=== PATIENT | female | born 1955 | race African-American/Black ===

== ENCOUNTER 2017-12-14 05:45 | Day surgery (SDC) | payer BC ==
[2017-12-13 08:59] VITALS: BMI 40.4
[2017-12-14] MEDS ORDERED: Betamet Acet/Betamet Na Ph 30 MG/5 ML VIAL ONE (06:44)
[2017-12-14] MEDS ORDERED: Bupivacaine PF 0.5% 30 ML VIAL ONE (06:44)
[2017-12-14] MEDS ORDERED: Bacitracin Zinc Ointment 30 gm TUBE ONE (06:44)
[2017-12-14] MEDS ORDERED: CEFAZOLIN/Water 2 GM/20 ML SYRINGE ONE (06:50)
[2017-12-14] MEDS ORDERED: Midazolam HCl 2 mg/2 ml Vial ONE (07:11)
[2017-12-14] MEDS ORDERED: Fentanyl 100 MCG/2 ML VIAL ONE ×2 (07:11→11:02)
[2017-12-14] MEDS ORDERED: Thrombin 5000 UNITS/5 ML VIAL ONE (09:54)
[2017-12-14] MEDS ORDERED: Ketorolac Tromethamine 30 MG/ML VIAL ONE ×2 (10:59→13:07)
--- NOTE | 2017-12-14 12:48 | OP ---
DATE OF PROCEDURE: 12/14/2017 POSTOPERATIVE DIAGNOSIS: 1. Left cubital tunnel. 2. Left olecranon bursitis. 3. Left carpal tunnel syndrome. 4. Left ulnar nerve compression of the wrist/Guyon's canal. POSTOPERATIVE DIAGNOSES: 1. Left cubital tunnel. 2. Left olecranon bursitis. 3. Left carpal tunnel syndrome. 4. Left ulnar nerve compression of the wrist/Guyon's canal. FINDINGS: 1. A 10 cm x 4 cm lipoma over the ulnar nerve 1 cm proximal to the cubital tunnel primary entrance. 2. Very thick olecranon bursitis. PROCEDURE PERFORMED: 1. Ulnar nerve neuroplasty at the wrist. 2. Ulnar nerve transposition with neuroplasty at the elbow/subcutaneous transposition. 3. Carpal tunnel release. 4. Radical olecranon bursectomy elbow. 5. Excision, large elbow/distal arm lipoma with excisional biopsies 10 x 4 cm. TOURNIQUET TIME: First tourniquet 18 minutes. Second tourniquet 73 minutes. ESTIMATED BLOOD LOSS: Total of 20 mL. COMPLICATIONS: None. DRAINS: None. SPLINT APPLIED: Yes, long arm. SPECIMENS SENT: 1. The olecranon bursa radical resection. 2. Lipoma described above. INDICATIONS: Failed conservative treatment with EMG and clinical proof of compression of the ulnar a nd nerve the elbow and median ulnar of the wrist with marked olecranon bursa tenderness and history o f intermittent edema. DESCRIPTION OF PROCEDURE: After successful general endotracheal anesthesia, the limb was prepped and draped. Sterile tourniquet was applied. The limb was exsanguinated after outlining the incisions a nd then a tourniquet was inflated after exsanguination of limb. The patient then had the limb exsanguinated and tourniquet inflated to 250 mmHg pressure. We gave he r a total of 25 mL 0.5% Marcaine along both incisions. Midline incision was outlined, slightly curve d medially to avoid olecranon bursa at the elbow and a lazy J-shaped incision was made, avoiding the thenar or hypothenar eminence on both sides of the wrist for the wrist procedure. We first approached the wrist, carried the incision through skin and subcutaneous tissue. Immediately found the ulnar n erve and artery neurovascular bundle 2 cm proximal to the Guyon's canal carpal ligament. We then kathy ed them both and found no lipoma, released the transverse ligament before the pisiform, freed a ll subcutaneous fat without a formal lipoma and bands of subcutaneous fascia over the nerve until roldan ulotomy until we saw the nerve bifurcate. We then moved approximately 15 mm radially, found the transverse carpal ligament, and then released t he transcarpal ligament from 2 cm proximal to the volar wrist flexion crease all the way until it end ed. There was a very tight compression of the median nerve within the carpal canal with stippling an d early allograft formation and the ulnar nerve had about a 5 mm area of early stippling just underne ath the Guyon's canals transverse fascia. We released the tourniquet. One small arterial branch had to be clipped using a clip appliance and then we placed Celestone on mariza th nerves 1.5 mL each site, closed the skin only with interrupted 4-0 nylon simple pattern. We reinflated the tourniquet after exsanguination of limb to 250 mmHg pressure and entered the midlin e incision over the elbow. We then placed retractors, outlined the olecranon bursa and gently resect ed its radial half. We then found the ulnar nerve and it was indeed compressed at several sites, fir st it was a lipoma overlying it was 10 cm long x 4 cm in greatest width and about 1/3 of that was ove r the ulnar nerve just proximal to the cubital tunnel. The ulnar nerve was under tremendous tension as it crossed the elbow and went into a very tight marshall cubital tunnel and there was some compressi on also at the two heads of the flexors. All of this was released and then the intermuscular septum was removed for an 8 cm long area. We transposed the nerve anteriorly. Before we performed the ante rior and we were able to find a layer of soft tissue and fat that was very flexible without tension 4 mm deep, 3 cm wide and then we used this to cover the nerves within it before relocating it back int o its marshall area behind the distal humerus. Once this was done, we completed the olecranon bursecto my and removed the complete lipoma knowing that the nerve was protected in its new bed. There was no undue tension on the nerve. We then placed 3 mL Celestone along the nerve, deflated the tourniquet. We obtained hemostasis. We then left a thrombin soaked Gelfoam in the wound for 10 minutes. Close d the wound with deep dermal running 4-0 Monocryl and applied Steri-Strips to the skin. Bulky dressi ng was applied to both sites and a long arm splint in neutral position to the elbow. She left the op erating room without evidence of anesthetic or operative complication.
[2017-12-14] MEDS ORDERED: Ondansetron HCl/PF 4 MG/2 ML Vial ONE (13:07)
[2017-12-14] MEDS ORDERED: Propofol 200 MG/20 ML VIAL ONE (13:07)
[2017-12-14] MEDS ORDERED: Lidocaine 1% PF 5 ML VIAL ONE (13:07)
[2017-12-14] MEDS ORDERED: Dexamethasone 20 MG/5 ML VIAL ONE (13:07)
== END 2017-12-14 13:01 | disposition home or self-care (01) ==
LOC: SDC 05:45
PROVIDERS: ATTEND Orthopaedic Surgery Hand Surgery
DX: D17.22 Benign lipomatous neoplasm of skin and subcutaneous tissue of left arm (principal); G56.02 Carpal tunnel syndrome, left upper limb; G56.22 Lesion of ulnar nerve, left upper limb; M70.22 Olecranon bursitis, left elbow; I10 Essential (primary) hypertension; K21.9 Gastro-esophageal reflux disease without esophagitis; F17.200 Nicotine dependence, unspecified, uncomplicated; Z79.899 Other long term (current) drug therapy; Z88.2 Allergy status to sulfonamides; Z88.8 Allergy status to other drugs, medicaments and biological substances; Z88.1 Allergy status to other antibiotic agents; Z88.0 Allergy status to penicillin; Z91.013 Allergy to seafood; Z90.710 Acquired absence of both cervix and uterus; Z90.722 Acquired absence of ovaries, bilateral; Z90.79 Acquired absence of other genital organ(s); Z98.890 Other specified postprocedural states
CPT/HCPCS: 88304; 96374; J0702; J1885; J2250; J3010; S0020

== ENCOUNTER 2018-01-25 09:55 | Day surgery (SDC) | payer BC ==
[2018-01-24 13:56] VITALS: BMI 252.0
[2018-01-25] MEDS ORDERED: Midazolam HCl 2 mg/2 ml Vial ONE ×2 (10:48→10:50)
--- NOTE | 2018-01-25 13:23 | MRI ---
MRI BRAIN WITHOUT CONTRAST: Technique: Multiplanar, multisequential imaging of the brain obtained. History: Headaches. FINDINGS: Ventricles have normal size and position. No evidence of restricted diffusion. No evidence of white m atter abnormality. No mass or edema identified. No significant volume loss. The intracranial internal carotid arteries, proximal cerebral arteries and basilar arteries show flow voids. The central venous sinuses appear patent. Paranasal sinuses and mastoids appear clear. The optic nerves are somewhat tortuous and there is increased CSF seen along the optic nerve sheaths bilaterally. In addition, there are findings consistent with empty sella with empty CSF in the sella turcica. These findings can be seen with intracranial hypertension and recommend clinical correlation . IMPRESSION: 1. Findings which can be associated with intracranial hypertension are described above. Recommend cli nical correlation. 2. MRI brain otherwise unremarkable. POS: [facility]
--- NOTE | 2018-01-25 13:40 | MRI ---
MRI CERVICAL SPINE WITHOUT CONTRAST: HISTORY: Neck pain. Left hand numbness and tingling. Left upper extremity radiculopathy. TECHNIQUE: Multiplanar, multisequence imaging of the cervical spine obtained. FINDINGS: The cervical vertebrae maintain normal height and alignment. Disk spaces are relatively well preserv ed. There are mild disk bulge and spondylosis at C2-C3 and at C3-C4. The changes at these levels efface the anterior subarachnoid space and but the cord. No cervical canal stenosis or foraminal stenosis a t these levels. At C4-C5, there is a focal disk protrusion centrally and slightly to the right, which does impinge on the cord and indents the anterior cord. This focal protrusion measures 5 mm in AP dimension in the axial plane. There is associated right foraminal stenosis due to disk osteophyte and uncinate hypert rophy. At C5-C6, mild disk bulge and spondylosis mildly efface the anterior subarachnoid space. No impingem ent on the cord. No foraminal stenosis. At C6-C7, minimal disk bulge and spondylosis. Anterior subarachnoid space is preserved. The foramin a are patent. IMPRESSION: Focal disk protrusion at C4-C5, centrally and slightly to the right, with impingement on the cord and associated right foraminal encroachment, as described above. POS: [facility]
== END 2018-01-25 14:50 | disposition home or self-care (01) ==
LOC: SDC/OP 09:55 → EDSTATUS 12:00 → SDC/OP 14:50
PROVIDERS: ATTEND Orthopaedic Surgery Hand Surgery
DX: M50.121 Cervical disc disorder at C4-C5 level with radiculopathy (principal); G56.02 Carpal tunnel syndrome, left upper limb; R51 Headache; G56.22 Lesion of ulnar nerve, left upper limb; M70.20 Olecranon bursitis, unspecified elbow; I10 Essential (primary) hypertension; K21.9 Gastro-esophageal reflux disease without esophagitis; Z79.899 Other long term (current) drug therapy; Z88.2 Allergy status to sulfonamides; Z88.8 Allergy status to other drugs, medicaments and biological substances; Z88.1 Allergy status to other antibiotic agents; Z88.0 Allergy status to penicillin; Z91.013 Allergy to seafood; Z98.890 Other specified postprocedural states
CPT/HCPCS: 70551; 72141; J2250

== ENCOUNTER 2018-08-18 21:31 | Inpatient (IN) | payer BC ==
[~2018-08-18 21:31] MED LIST: ISOVUE-370 76%-LOCM 1 ML ONE
[2018-08-18] MEDS ORDERED: Fentanyl 100 MCG/2 ML VIAL ONE (21:45)
[2018-08-18] MEDS ORDERED: fentaNYL Citrate/PF 2,000 MCG in Sodium Chloride 0.9% 60 ML IV SCH (21:52)
[2018-08-18 21:59] LABS: Bilirubin Negative (Negative); Blood, Urine Trace (Negative); Clarity CLOUDY (Clear); Glucose, Urine (Dipstick) Negative (Negative); Leukocyte Trace (Negative); Nitrite Negative (Negative); Protein, Urine (Dipstick) Trace mg/dL (Neg-Trace); Specific Gravity, Urine 1.008 (1.002-1.036); Urobilinogen 0.2 mg/dL (0.2-1.0); pH, Urine 6.5 (5.0-9.0)
[2018-08-18 22:01] LABS: Bacteria/HPF None Seen HPF (None Seen)
[2018-08-18 22:03] LABS: Hyaline Casts/LPF 0-3 HYALINE CAST LPF (0-3 Hyaline); Pathc Cast-AUWi Flag 5.23 (0-2.49)
[2018-08-18 22:13] LABS: Actual Bicarbonate (HCO3a) 29.2 mEq/L (22-28); Analyzer IN Cardio ER; Base Excess (BEa) 5.2 mEq/L (-2.0 to +3.0); CO2 Tension 40.7 mmHg (35.0-45.0); Calcium, Ionized 1.74 mmol/L (1.12-1.30); Carboxyhemoglobin (COHb) 1.3 gm% (0.0-3.0); Hemoglobin (Hb) 15.8 g/dL (12.0-16.0); O2 Tension (PaO2) 143.7 mmHg (> 80.0); Potassium - ABG Lab 2.45 mmol/L (3.70-5.30); pH, Arterial 7.47 (7.35-7.45)
[2018-08-18 22:18] LABS: ALV-art Gradient 197.575 (0-20); Puncture Site RBR
--- NOTE | 2018-08-18 22:25 | CT ---
NONCONTRAST CT HEAD 08/18/18 HISTORY: Altered mental status. Seizure and respiratory distress. Patient found down and unresponsive. COMPARISON: MRI of the brain on 01/25/18. FINDINGS: There is no evidence of an acute infarction, hemorrhage, mass effect, or midline shift. Ventricular s ystem is normal in size, shape and position. Endotracheal tube and nasogastric tube are partially see n. There is opacification of a few ethmoidal air cells bilaterally with tiny air fluid level in the l eft sphenoid sinus which may be related to the intubation. There are several lytic lesions of varying size seen throughout the calvarium diffusely with larger l ytic areas seen within the right anterior and anterolateral temporal bone. These lytic lesions are wo rrisome for metastatic lesions. No signal abnormalities were seen within the diploic space on prior M RI brain on 01/25/18. IMPRESSION: 1. Lytic metastatic lesions involving the calvarium. 2. Bone scan may be helpful for further evaluation to evaluate for additional metastatic lesions . CT cervical spine was also obtained on this date which also demonstrates multiple lytic lesions thr oughout the vertebral bodies. 3. No acute intracranial abnormalities demonstrated. 4. Endotracheal tube and nasogastric tube in place. POS: [facility]
--- NOTE | 2018-08-18 22:36 | RAD ---
PORTABLE AP CHEST X-RAY 08/18/18 HISTORY: Patient found unresponsive with snoring respirations. Reported seizures 1.5 hours prior to arrival. COMPARISON: 12/10/17. FINDINGS: There is increased density involving the left hemithorax with greater patchy parenchymal change seen in the region of the lingula. The findings could be related to aspiration with mucus plugging, althou gh pleural fluid layering posteriorly is a possibility. The right lung is clear. The tip of the endot wally tube is visualized overlying the region of the T2 vertebral body. Nasogastric tube is noted i n place which courses into the left upper quadrant, the tip of which is not seen. There are lucencies overlying the left shoulder. This could be artifactual, but subcutaneous emphysema cannot be entirel y excluded. No pneumothorax is seen. IMPRESSION: 1. Opacity left hemithorax with greater patchy opacity in the region of the lingula. These findi ngs could be related to aspiration with volume loss in the left hemithorax. Associated pleural effusi on layering posteriorly is a possibility. CT scan thorax may be helpful for further evaluation. 2. Right lung is clear. 3. Partial visualization of endotracheal tube overlying the T2 vertebral body. 4. Gas lucencies overlying the left scapula. This could be related to subcutaneous emphysema in this region or artifactual. Followup evaluation is suggested. POS: [facility]
--- NOTE | 2018-08-18 22:40 | CT ---
CT CERVICAL SPINE NONCONTRAST: 08/18/18 at 9:57 p.m. HISTORY: 63-year-old female status post acute cervical trauma from fall. FINDINGS: There is a large number of osteolytic lesions throughout all levels of the cervical spine and all vis ualized levels of the thoracic spine involving vertebral bodies and posterior elements. There are als o multiple osteolytic lesions involving bilateral upper ribs and left scapula. There is moderately hi gh density left apical pleural fluid collection, 40 Hounsfield units, suggestive of hemorrhagic pleur al fluid. Vertebral body heights are maintained. Alignment is normal. No traumatic acute fracture is identified. There is an endotracheal tube with distal tip in the mid thoracic trachea. There is an NG tube in the esophagus. There is fluid filling and effacing the oropharyngeal and nasopharyngeal airw ays. IMPRESSION: 1. Very extensive osteolytic skeletal lesions representing either skeletal metastasis or multipl e myeloma. 2. Left apical hemothorax. 3. No acute fracture identified. MEMO Nichols POS: [facility]
[2018-08-18] MEDS ORDERED: Propofol 1,000 MG/100 ML VIAL IV ONE (22:41)
[2018-08-18] MEDS ORDERED: Midazolam HCl 5 mg/ml Vial ONE (22:45)
[2018-08-18 22:52] LABS: CKMB 2.3 ng/mL (0-6.6); Troponin I 0.015 ng/mL (< 0.028)
[2018-08-18] MEDS ORDERED: Ondansetron HCl/PF 4 MG/2 ML Vial IVP PRN (22:54)
[2018-08-18] MEDS ORDERED: Sodium Chloride 0.9% 1,000 ML IV SCH (23:00)
[2018-08-18] MEDS ORDERED: Albuterol Sulfate 1.25 MG/3 ML NEB NEB PRN (23:01)
[2018-08-18] MEDS ORDERED: Ventilator Sedation Protocol 1 EACH FS ONE (23:01)
[2018-08-18] MEDS ORDERED: Propofol BOLUS 1,000 MG/100 ML VIAL IV PRN (23:15)
[2018-08-18] MEDS ORDERED: levETIRAcetam 500 MG/100 ML PREMIX BAG ONE (23:15)
[2018-08-18] MEDS ORDERED: cefTRIAXone\\ROCEPHIN 1 GM VIAL ONE (23:15)
[2018-08-18] MEDS ORDERED: Fentanyl BOLUS 250 ML IVPB PRN (23:15)
[2018-08-18 23:16] LABS: Hemoglobin 15.2 g/dL (12.0-16.0); Mean Corpuscular HGB CONC 31.8 g/dL (32.0-36.0); Mean Corpuscular Hemoglobin 30.6 pg (27.0-31.0); Mean Corpuscular Volume 96.4 fL (78.0-98.0); Mean Platelet Volume 10.2 fL (7.4-10.4); Platelet Count 234 thou/uL (130-400); RBC Distribution Width 12.5 % (11.5-14.5); Red Blood Cell (RBC) Count 4.98 mill/uL (4.20-5.40); White Blood Cell (WBC) Count 10.5 thou/uL (4.8-10.8)
[2018-08-18 23:17] LABS: INR-International Normal Ratio 1.1; PTT 26.4 SEC (22.9-36.1); Prothrombin Time 14.3 SEC (12.0-14.7)
[2018-08-18 23:19] LABS: D-Dimer Test 3.8 *mcg/mL (0.27-0.43)
--- NOTE | 2018-08-18 23:21 | RAD ---
RADIOGRAPH CHEST 1 VIEW: Date: 08/18/18 Time: 10:45 p.m. HISTORY: 63-year-old female status post central line placement. COMPARISON: 08/18/18 at 9:31 p.m. FINDINGS: There is a new left subclavian central vascular catheter with distal tip overlying the expected locat ion of the SVC. Endotracheal tube distal tip overlies the trachea and T2 vertebral body, unchanged, l ocated approximately 6.5 cm superior to the la. NG tube travels through the left upper quadrant of the abdomen, distal tip outside the field of view, unchanged. There continues to be severe partial opacification of the left hemithorax, at least part of which is due to pleural fluid (hemothorax as demonstrated on CT of the cervical spine). Lucencies at the left scapula and right clavicle represent osteolytic lesions. This is a supine image, which would be insensitive for pneumothorax detection. N o pulmonary edema or gross consolidation of the right lung . IMPRESSION: 1. Status post left sided subclavian central vascular catheter placement. 2. No other interval change. 3. Severe partial opacification of the left hemithorax probably representing a combination of le ft hemothorax and air space disease. 4. Osteolytic skeletal lesions represent either skeletal metastatic disease or multiple myeloma. 5. No change in positions of endotracheal tube and nasogastric tube. MEMO [] POS: [facility]
[2018-08-18 23:27] LABS: Band 1 % (5-11); Lymphocytes 24 % (21-51); MDiff Complete? YES; Monocytes 6 % (0-10); Neutrophil 68 % (42-75); Reactive Lymphocytes 1 % (0-10)
[2018-08-18 23:30] LABS: ALT (SGPT) 111 U/L (8-55); AST (SGOT) 179 U/L (5-34); Albumin 3.6 g/dL (3.4-4.8); Alkaline Phosphatase 149 U/L (40-150); Anion Gap 17 mmol/L (10-20); BUN (Urea Nitrogen) 17 mg/dL (9.8-20.1); Bilirubin, Total 0.6 mg/dL (0.2-1.2); Calc. Creatinine Clearance 0 mL/min (70-130); Carbon Dioxide 28 mmol/L (23-31); Chloride 102 mmol/L (98-107); Estimated GFR-MDRD 51; Globulin 4.8 g/dL (2.4-3.5); Glucose 107 mg/dL (80-115); Protein, Total 8.4 g/dL (6.0-8.3); Sodium 145 mmol/L (136-145)
[2018-08-18] MEDS ORDERED: levETIRAcetam In NaCl (Iso-Os) 1,500 MG in Premix Bag 1 BAG IVPB SCH (23:30)
[2018-08-18 23:36] LABS: Calcium 15.6 mg/dL (7.8-10.44); Potassium 2.3 mmol/L (3.5-5.1)
[2018-08-19] MEDS ORDERED: Sodium Chloride 0.9% 1,000 ML IV SCH (00:15)
[2018-08-19 00:41] LABS: Magnesium 1.6 mg/dL (1.6-2.6); Phosphorus 3.5 mg/dL (2.3-4.7)
[2018-08-19] MEDS: Lorazepam 2 MG/ML VIAL SLOW IVP PRN ×3 (00:57→16:50)
[2018-08-19] MEDS ORDERED: Zoledronic Acid 4 MG in Sodium Chloride 0.9% 100 ML IVPB SCH (01:30)
[2018-08-19] MEDS: Calcitonin,Salmon,Synthetic 200 UNITS/ML SC SCH (01:44)
[2018-08-19] MEDS: Propofol 1,000 MG/100 ML VIAL IV PRN ×4 (02:49→19:53)
[2018-08-19] MEDS ORDERED: Acetaminophen/Codeine 30-300mg Tablet PO PRN (03:02)
[2018-08-19 03:16] LABS: #Monocytes 0.5 thou/uL (0.11-0.59); #Neutrophils 7.4 thou/uL (1.40-6.50); %Basophils 0.5 % (0.0-1.0); %Eosinophils 0.1 % (0.0-10.0); %Monocytes 5.3 % (0.0-10.0); %Neutrophils 74.2 % (42.0-75.0); Hemoglobin 14.9 g/dL (12.0-16.0); Mean Corpuscular HGB CONC 31.4 g/dL (32.0-36.0); Mean Corpuscular Hemoglobin 30.8 pg (27.0-31.0); Mean Corpuscular Volume 98.1 fL (78.0-98.0); Mean Platelet Volume 10.3 fL (7.4-10.4); Platelet Count 224 thou/uL (130-400); RBC Distribution Width 12.5 % (11.5-14.5); Red Blood Cell (RBC) Count 4.84 mill/uL (4.20-5.40); White Blood Cell (WBC) Count 9.9 thou/uL (4.8-10.8)
[2018-08-19 03:34] LABS: Lactic Acid 2.5 mmol/L (0.5-2.2)
[2018-08-19 04:30] LABS: Anion Gap 16 mmol/L (10-20); BUN (Urea Nitrogen) 17 mg/dL (9.8-20.1); Calc. Creatinine Clearance 90 mL/min (70-130); Carbon Dioxide 27 mmol/L (23-31); Chloride 107 mmol/L (98-107); Estimated GFR-MDRD 55; Glucose 107 mg/dL (80-115); Sodium 148 mmol/L (136-145)
[2018-08-19 04:34] LABS: Calcium 14.6 mg/dL (7.8-10.44); Potassium 2.4 mmol/L (3.5-5.1)
[2018-08-19] MEDS ORDERED: Magnesium 2 GM/NS 0.9% 100 ML 2 GM in Premix Bag 1 BAG IVPB SCH (05:15)
[2018-08-19] MEDS: Sodium Chloride 0.9% 1,000 ML IV SCH ×4 (05:17→19:52)
--- NOTE | 2018-08-19 07:02 | HP ---
PRIMARY CARE PHYSICIAN: Dr. Arnol Chambers CODE STATUS: FULL CODE. TIME OF EVALUATION: 0 CHIEF COMPLAINT: The patient found unresponsive. HISTORY OF PRESENT ILLNESS: This is a 63-year-old female patient with past medical history that was negative, patient came to the hospital after being found unresponsive and having an episode where it seems like a seizure. When EMS came to the scene, they found the patient was in respiratory distress . The patient was intubated, patient was given Versed due to an episode of seizure, no clear trigger s, no alleviating factors, symptoms were severe. REVIEW OF SYSTEMS: Unable to obtain, patient is sedated and intubated. PAST MEDICAL HISTORY: Not reported by family. PAST SURGICAL HISTORY: Left elbow and wrist, right elbow surgery, carpal tunnel surgery, hysterectom y. SOCIAL HISTORY: Every day smoker, 1 pack per day. FAMILY HISTORY: Reviewed and noncontributory to current presentation. ALLERGIES: AMOXICILLIN, CLAVULANIC ACID, CLINDAMYCIN, ____. MEDICATIONS: Lyrica, amlodipine, clonidine. PHYSICAL EXAMINATION: VITAL SIGNS: On presentation, blood pressure 99/68 with heart rate 89, respiratory rate was 22. Tarsha n is unable to obtain, oxygen saturation 100 on the vent. GENERAL APPEARANCE: The patient is intubated, sedated. HEENT: Normal conjunctivae. Oral mucosal membranes. Anicteric. NECK: No JVD. RESPIRATORY: Bilateral air entry. No rales, no wheezing. Symmetric expansion. CARDIOVASCULAR: Normal rate, regular rhythm. No murmurs, no gallop. No edema. ABDOMEN: Soft, normal bowel sounds. MUSCULOSKELETAL: Baseline range of motion and strength. No tenderness. SKIN: The patient has a significant left breast mass that is hard, dark in color, it is extensive fo r about 4-5 inches. Peripheral pulses are present. EXTREMITIES: Seems to be intact. NEUROLOGIC: Unable to fully explore. The patient is sedated and intubated, no evidence of any acute focal weakness. PSYCHIATRIC: Unable to explore. LABORATORY DATA: EKG was reviewed and discussed with the performing physician from the ER. The jozef ent has a normal sinus rhythm at the rate of 87, no ectopics. Cannot rule out inferior infarct, age undetermined. Radiology interpretation; head CT showed multiple lytic lesions in the skull. No intr acranial abnormalities, in the neck showed multiple metastatic lesions. The CT chest was done. The patient has left-sided pleural effusion, possible compression atelectasis. The patient also has a le ft breast mass with significant metastatic disease spreading to the axillary area, multiple lymph nod es in the cervical area ____. Labs were reviewed. White count 10.5, hemoglobin 15.2, MCV 96.4. Coagulation: PT 14.3, INR 1.1, PT T 26.4. D-dimer 3.8. Blood gas was done. The patient had a pH of 7.47 with a pCO2 of 40, pO2 143. Sodium 145, potassium 2.3, repeat 2.4, creatinine 1.2, chloride 102, carbon dioxide 28, anion gap 17 , creatinine 1.58. GFR 51, glucose 107. Lactic acid 3.8, came down to 2.5, calcium on initial prese ntation of 15.6 came down to 14.6 on repeat one in the morning. Phosphorus 3.5, magnesium 1.6, AST 1 79, ALT 111. Troponin was negative. UA was positive for possible infection with white count 7-10. ASSESSMENT AND PLAN: The patient will be placed in the hospital for the following medical problems. The patient placed in ICU. Critical care time 135 minutes expanding on bedside assessment, stabiliz ation of the patient, review and elaboration of records, and coordination of care. 1. Acute episode of seizure, patient has 2 episodes, one at home and one here in the ER, patient has been started on Keppra given findings of possible metastatic disease, and recurrent episodes, the pa tient received intubation, patient on propofol. We will monitor, we will need Neurosurgery follow up . They have been called from here, we will follow recommendations. 2. Positive ____ likely secondary to finding of new diagnosis of cancer, CT angio did not show any m assive pulmonary embolism. 3. Hypokalemia. Potassium 2.45, patient's electrolyte replacement has been started. 4. Hypercalcemia, likely secondary to malignancy, patient has been started on IV fluids, calcitonin, pamidronate, will need Oncology evaluation for assistance with correction of calcium, this could exp skip the patient's initial presentation with acute encephalopathy. 5. Acute encephalopathy, likely secondary to hypercalcemia and possible underlying metastatic diseas e in the brain that has not been seen on the CAT scan. We will treat underlying condition. 6. Possible urinary tract infection. The patient has a white count 7-10, no evidence of sepsis. We will send urine culture. Patient is started on Rocephin that we will continue for now. Blood cultu re, adjust treatment as needed. 7. Deep venous thrombosis prophylaxis. 8. Possible acute kidney injury. Creatinine 1.28, we do not have a previous reference value; howeve r, the patient seems to be dehydrated, likely secondary to diuresis effect from hypercalcemia, we kinga l hydrate, will monitor kidney function. 9. New diagnosis of possible breast cancer given a mass present in the left breast, patient has also multiple extensive metastatic disease. The patient will need Oncology evaluation, and for staging a nd possibility for treatment. Family has stated that they did not know anything about this cancer an d that she had never expressed any concern about cancer. 10. Metastatic disease affecting cervical spine, Neurosurgery has been consulted, we will follow the ir recommendations.
--- NOTE | 2018-08-19 07:12 | PRG ---
DATE OF SERVICE: 08/19/2018 I saw Ms. Corcoran in her hospital room this morning and agree with the notes of Mayelin Hu PA-C. AscencionDusty Corcoran is a 63-year-old woman who came to the emergency department with seizure. CT imaging of the brain did not show obvious lesions in the parenchyma of the brain, but it did show a significant burden of lytic bony lesions in the skull and the cervical spine, CT imaging of the cer vical spine likewise documented this in the spine disease continues into the thoracic spine. A CT an giogram of the chest did not show PE, but it shows a large breast tumor on the patient's left. Ms. Corcoran was seen in the ICU this morning. She is on a significant amount of propofol for sedation a nd is on a ventilator. When the propofol is weaned she starts seizing again. Neurology for some melissa son has not been consulted. 2 mg in total of Ativan has been given and one dose of Keppra overnight. I am unable to examine the patient due to the sedation requirements and I do not want her seizing any more. Brainstem reflexes are intact. Ms. Corcoran undoubtedly has significant metabolic derangement from the metastatic cancer which may have predisposed her to seizure. It would not be unusual to find a brain lesion in the setting of this mu ch metastatic disease. My recommendation for Ms. Corcoran is to have Neurology on board to manage the seizures to bring her elec trolytes more into the normal range and have Oncology review the imaging with some lengthy discussion s with family. I am not in favor of surgical intervention on the spine or brain currently, as I am u nsure what the benefit and the length of the quality of life would be from either of those. When she can tolerate a CT of the chest, abdomen, and pelvis to further stage her metastatic disease might be important, although we already know it is a stage IV with bony metastases and an MRI scan of the bra in could be considered with contrast.
--- NOTE | 2018-08-19 08:17 | CT ---
PRELIMINARY REPORT/[facility]/EMERGENTY AFTER-HOURS PROCEDURE CT Angiography Chest With Intravenous Contrast EXAM DATE/TIME: 08/19/2018 12:00 AM CLINICAL HISTORY: 63 years old, female; Signs and symptoms; Other: Unresponsive; Patient HX: 63f presented to ed by air med for seizure and respiratory distress. 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 Ems reports patient having snoring respirations TECHNIQUE: Axial computed tomographic angiography images of the chest with intravenous contrast using CT angiogr aphy protocol. MIP reconstructed images were created and reviewed. CONTRAST: 70 ml of ISOVUE administered intravenously. COMPARISON: No relevant prior studies available. FINDINGS: Tubes, catheters and devices: Distal tip ETT 5 cm above the la. Distal tip NGT in stomach. Pulmonary arteries: Borderline adequate contrast enhancement of the pulmonary arteries. No evidence o f intraluminal filling defects in the pulmonary trunk or main pulmonary arteries. Limited assessment of the lobar and segmental pulmonary arteries-no evidence of definite filling defect. No evidence of filling defects in the cardiac chambers. Aorta: No evidence of thoracic aortic dissection. Other arteries: Chronic atherosclerotic calcification of the vasculature. Lungs: No evidence endobronchial lesion. Mild left upper lobe and bilateral lower lobe air space opac ity-atelectasis/scarring. Pleural space: Moderate-large left pleural effusion, possibly loculated components. No evidence of pn eumothorax. Heart: Heart appears within normal limits, no pericardial effusion. Bones/joints: Multi-level degenerative changes involve the thoracic spine. Soft tissues: Lobulated up to 7 cm soft tissue density involving the left breast. Lobulated soft tiss ue density in the left axilla. Lymph nodes: Few subcentimeter mediastinal lymph nodes. Other findings: Multifocal lytic lesions throughout the axial skeleton. IMPRESSION: 1. Borderline adequate enhancement for this study-no evidence of pulmonary embolism. 2. No evidence of thoracic aortic dissection. 3. Mild left upper lobe and bilateral lower lobe air space opacity-atelectasis/scarring. 4. Moderate-large left pleural effusion, possibly loculated components. 5. Findings suspicious for mass involving left breast soft tissues and left axillary lymphadenopathy. 6. Findings suggestive osseous metastatic disease. Thank you for allowing us to participate in the care of your patient. Dictated and Authenticated by: Kwadwo Mackey MD 08/19/2018 1:46 AM Central Time ([place] & [place]) FINAL REPORT EMERGENT AFTER HOURS CT ANGIOGRAM OF CHEST PERFORMED WITH INTRAVENOUS CONTRAST ENHANCEMENT WITH 3D RE CONSTRUCTIONS: HISTORY: Syncope, seizure, respiratory distress. The patient was found down and unresponsive. A large left-sided pleural effusion is noted with left lower lobe and lingular atelectasis. There is also atelectatic change in the right lung base with a smaller right effusion. The thoracic aorta is normal in caliber. The pulmonary artery opacification is not adequate. I wendi ot exclude the presence of pulmonary embolus. Left breast mass with skin thickening and left axillary adenopathy is noted. The largest axillary no de is 4.7 cm. Visualized liver parenchyma shows no focal findings. Both adrenal glands are enlarged. There is mas s-like appearance to the left adrenal, which is incompletely visualized on this study. IMPRESSION: 1. This exam is not adequate for evaluation for pulmonary embolus. 2. Large left effusion with a smaller right effusion. Bibasilar atelectatic lung changes particular ly pronounced in the left base. 3. Probable left adrenal mass. 4. Large left breast mass with skin thickening and left axillary adenopathy highly suspicious for br east cancer with metastatic disease. 5. Also incidentally noted is diffuse lytic bony metastatic change. 6. This report is in minor disagreement with the temporary report. They described borderline adequa te enhancement for assessment of pulmonary embolus. I do not think the enhancement is adequate for e valuation. POS: [facility]
[2018-08-19 08:29] LABS: Actual Bicarbonate (HCO3a) 32.6 mEq/L (22-28); Base Excess (BEa) 6.3 mEq/L (-2.0 to +3.0); CO2 Tension 53.3 mmHg (35.0-45.0); Calcium, Ionized 1.68 mmol/L (1.12-1.30); Carboxyhemoglobin (COHb) 1.1 gm% (0.0-3.0); Hemoglobin (Hb) 14.7 g/dL (12.0-16.0); Potassium - ABG Lab 2.41 mmol/L (3.70-5.30); pH, Arterial 7.41 (7.35-7.45)
[2018-08-19 08:32] LABS: ALV-art Gradient 136.575 (0-20); Puncture Site RRA
[2018-08-19] MEDS: Famotidine/PF 20 mg/2ml Vial SLOW IVP SCH (08:32)
[2018-08-19] MEDS: Enoxaparin Sodium 40 MG/0.4 ML SYRINGE SC SCH (08:32)
[2018-08-19] MEDS ORDERED: hydrALAZINE 20 MG/ML VIAL SLOW IVP PRN (08:38)
[2018-08-19] MEDS ORDERED: Eucerin (Mineral Oil/Petrolatum,White) 30 gm Jar TOP PRN (08:38)
[2018-08-19] MEDS ORDERED: Artificial Tears 18 DROP/0.9 ML EA EYE PRN (08:38)
[2018-08-19] MEDS ORDERED: Bisacodyl 10 MG SUPP PR PRN (08:38)
[2018-08-19 08:42] LABS: Potassium 2.4 mmol/L (3.5-5.1)
[2018-08-19] MEDS: Potassium Chloride 20 MEQ in Premix Bag 1 BAG IVPB SCH ×2 (09:12→11:53)
[2018-08-19] MEDS ORDERED: Gadobenate Dimeglumine 529 MG/1 ML (20ML VIAL) ONE (10:41)
--- NOTE | 2018-08-19 12:52 | CON ---
DATE OF CONSULTATION: 08/19/2018. HISTORY OF PRESENT ILLNESS: Ms. Corcoran is a 63-year-old female who was found unresponsive at her home. EMS brought her to our ED department and en route, she began to have some seizure and respiratory distress. The patient was complaining of tingling in her arm earlier today per family notes. The patient is currently in the hospital room, sedated and intubated. She is unresponsive at this time. The patient has a large breast mass on the left side with orange peel skin which appears to have been there for quite some time. REVIEW OF SYSTEMS: Unable to obtain review of systems as the patient is intubated. PAST MEDICAL HISTORY: Past medical history is unable to be obtained as the patient is intubated. PAST SURGICAL HISTORY: The patient has had left elbow and wrist surgery, carpal tunnel, and hysterectomy. SOCIAL HISTORY: The patient's family denies alcohol use or drugs. She does currently smoke cigarettes daily and has smoked for about 20 years, approximately a pack a day. ALLERGIES: AMOXICILLIN, CLAVULANIC ACID, CLINDAMYCIN, SHRIMP and SULFA. MEDICATIONS: Lyrica, amlodipine, clonidine. PHYSICAL EXAMINATION: VITAL SIGNS: Heart rate 69, blood pressure 126/79. She is on a ventilator and her temperature is 97. CONSTITUTIONAL: The patient is unresponsive, sedated and intubated, but she is afebrile, normotensive. HEENT: Head is normocephalic, atraumatic. Moist mucous membranes. Pupils are equal, round, not reactive to light and they are approximately 2-3 mm. RESPIRATORY: The patient is currently breathing. Normal chest rise, symmetrical, on the ventilator. CARDIOVASCULAR: Regular rate and rhythm. Heart sounds are normal. NEUROLOGIC: GCS of 3. She is not responding to stimuli. No eye response. No verbal responses. No motor response. She is intubated and sedated. She has been seizing throughout the night. SKIN: She has a large, hard, left breast mass with implant. IMAGIN. Head CT without contrast shows multiple lytic findings of the skull with no intracranial abnormalities. 2. Cervical spine CT shows multiple metastatic lytic lesion. ASSESSMENT AND PLAN: From a neurosurgical standpoint, Ms. Corcoran needs to have a consult with Neurology to evaluate and treat for her seizures. She needs oncology to address the mass. We will start her on Keppra 500 mg b.i.d., Decadron and Protonix. The patient needs to be worked up for her breast mass and at this time there is no significant neurosurgical intervention needed. MTDD
[2018-08-19] MEDS ORDERED: Vecuronium 10 MG VIAL IV PRN (13:25)
--- NOTE | 2018-08-19 13:56 | PDOC.PN ---
- Subjective Encounter Start Date: 08/19/18 Encounter Start Time: 10:00 -: old records requested/rev pt is intubated, sedated, Patient seen and examined. No overnight events - Objective Resuscitation Status: Resuscitation Status FULL:Full Resuscitation MAR Reviewed: Yes Vital Signs & Weight: Vital Signs (12 hours) Temp Pulse Resp BP Pulse Ox 08/19/18 12:05 58 L 92/59 L 08/19/18 12:00 97.8 F 12 08/19/18 10:00 13 08/19/18 08:00 97.7 F 13 98 08/19/18 07:26 69 126/79 08/19/18 06:00 14 08/19/18 04:00 13 08/19/18 03:00 98.5 F 08/19/18 02:37 79 182/100 H 08/19/18 02:00 16 Weight Weight 256 lb 2.834 oz Most Recent Monitor Data Heart Rate from ECG 58 NIBP 94/54 NIBP BP-Mean 67 Respiration from ECG 12 SpO2 98 I&O: 08/18/18 08/19/18 08/20/18 06:59 06:59 06:59 Intake Total 1918.6 100 Output Total 1360 400 Balance 558.6 -300 Result Diagrams: 08/19/18 02:58 08/19/18 07:57 Radiology Reviewed by me: Yes (CT neck, CT chest, chest xray reviewed) EKG Reviewed by me: Yes (nsr) Phys Exam - Physical Examination Constitutional: NAD on vent HEENT: PERRLA, sclera anicteric cervical collar+ Respiratory: no wheezing, no rales, no rhonchi Cardiovascular: RRR, no significant murmur, no rub Gastrointestinal: soft, no distention, positive bowel sounds Musculoskeletal: no edema, pulses present unable to assess Lymphatic: no nodes Deviation from normal: unable to assess Skin: no rash, normal turgor Dx/Plan (1) Acute kidney injury Code(s): N17.9 - ACUTE KIDNEY FAILURE, UNSPECIFIED Status: Acute (2) Acute metabolic encephalopathy Code(s): G93.41 - METABOLIC ENCEPHALOPATHY Status: Acute (3) Acute respiratory failure with hypoxia Code(s): J96.01 - ACUTE RESPIRATORY FAILURE WITH HYPOXIA Status: Acute (4) Axillary lymphadenopathy Code(s): R59.0 - LOCALIZED ENLARGED LYMPH NODES Status: Acute (5) Hypercalcemia of malignancy Code(s): E83.52 - HYPERCALCEMIA Status: Acute (6) Hypokalemia Code(s): E87.6 - HYPOKALEMIA Status: Acute (7) Left breast mass Code(s): N63.20 - UNSPECIFIED LUMP IN THE LEFT BREAST, UNSPECIFIED QUADRANT Status: Acute (8) Osseous metastasis Code(s): C79.51 - SECONDARY MALIGNANT NEOPLASM OF BONE Status: Acute (9) Pleural effusion, left Code(s): J90 - PLEURAL EFFUSION, NOT ELSEWHERE CLASSIFIED Status: Acute (10) Seizure Code(s): R56.9 - UNSPECIFIED CONVULSIONS Status: Acute (11) Transaminitis Code(s): R74.0 - NONSPEC ELEV OF LEVELS OF TRANSAMNS & LACTIC ACID DEHYDRGNSE Status: Acute (12) UTI (urinary tract infection) Status: Acute - Plan cont current plan of care, plan discussed w/ family * continue forced diuresis for hypercalcemia of mlg * replace potassium * vent as per pulmonary * oncology on case * continue keppra * consult neurology for seizure * discussed with family * prognosis is very poor * medication reviewed as below * symptomatic treatment as below. Review of Systems - Review of Systems Other: unable to review as pt is intubated - Medications/Allergies Allergies/Adverse Reactions: Allergies Allergy/AdvReac Type Severity Reaction Status Date / Time amoxicillin [From Augmentin] Allergy Diarrhea Verified 01/24/18 12:57 clavulanic acid Allergy Diarrhea Verified 01/24/18 12:57 [From Augmentin] clindamycin Allergy diarrhea/di Verified 01/24/18 12:57 zziness shrimp Allergy Anaphylaxis Verified 01/24/18 12:57 Sulfa (Sulfonamide Allergy Rash Verified 01/24/18 12:57 Antibiotics) Medications: Current Medications Acetaminophen (Tylenol) 650 mg PO Q4H PRN PRN Reason: Headache/Fever or Pain Albuterol Sulfate (Albuterol Sulfate) 1.25 mg NEB Q4H PRN PRN Reason: Wheezing Artificial Tears (Tears Naturale) 0 drop EA EYE PRN PRN PRN Reason: Dry Eyes Bisacodyl (Dulcolax) 10 mg AK DAILYPRN PRN PRN Reason: Constipation Calcitonin [place] (Calcimar) 400 units NV 0130 [facility] Stop: 08/22/18 01:31 Last Admin: 08/19/18 01:44 Dose: 400 unit Enoxaparin Sodium (Lovenox) 40 mg SC 0900 [facility] Last Admin: 08/19/18 08:32 Dose: 40 mg Famotidine (Pepcid) 20 mg SLOW IVP DAILY [facility] Last Admin: 08/19/18 08:32 Dose: 20 mg Furosemide (Lasix) 20 mg SLOW IVP 0600,1400 [facility] Hydralazine HCl (Apresoline) 10 mg SLOW IVP Q4H PRN PRN Reason: Systolic BP > 180 Fentanyl Citrate 2,000 mcg/ (Sodium Chloride) 100 mls @ 0 mls/hr IV INF [facility]; Protocol Stop: 09/17/18 21:52 Fentanyl Citrate (Fentanyl Bolus) 250 mls @ 0 mls/hr IVPB PRN PRN PRN Reason: Breakthrough pain/agitation Stop: 09/17/18 23:15 Levetiracetam 500 mg/ Device 100 mls @ 200 mls/hr IVPB BID [facility] Last Admin: 08/19/18 08:33 Dose: 100 mls Sodium Chloride (Normal Saline 0.9%) 1,000 mls @ 200 mls/hr IV .Q5H [facility] Last Admin: 08/19/18 11:53 Dose: 1,000 mls Potassium Chloride 20 meq/ (Device) 100 mls @ 50 mls/hr IVPB 0900,1100 [facility] Stop: 08/19/18 14:00 Last Admin: 08/19/18 11:53 Dose: 100 mls Lorazepam (Ativan) 2 mg SLOW IVP Q1H PRN PRN Reason: Breakthrough agitation Stop: 09/17/18 23:15 Last Admin: 08/19/18 01:51 Dose: 2 mg Mineral Oil/White Petrolatum (Eucerin Cream) 0 gm TOP BIDPRN PRN PRN Reason: Dry Skin Morphine Sulfate (Morphine Sulfate) 2 mg SLOW IVP Q1H PRN PRN Reason: BREAKTHROUGH PAIN/AGITATION Stop: 09/17/18 23:15 Ondansetron HCl (Zofran) 4 mg IVP Q6H PRN PRN Reason: Nausea/Vomiting Propofol (Diprivan) 1,000 mg IV INF PRN; Protocol PRN Reason: TO ACHIEVE GOAL RASS Stop: 09/17/18 23:15 Last Admin: 08/19/18 08:33 Dose: 1,000 mg Propofol (Diprivan Bolus) 20 mg IV Q5MIN PRN PRN Reason: BREAKTHROUGH AGITATION Stop: 09/17/18 23:15 Vecuronium [place] (Norcuron) 10 mg IV Q1H PRN PRN Reason: Agitation
[2018-08-19] MEDS: Furosemide 20 MG/2 ML VIAL SLOW IVP SCH (14:21)
--- NOTE | 2018-08-19 15:35 | PRG ---
DATE OF SERVICE: 08/19/2018 I am following up on recommended imaging on Gabrielle Corcoran. I do not see an MRI of the brain or CT ches t, abdomen, and pelvis that had been done. I will pass on the information to the weekend team. Spin e or cranial surgical intervention must be weighed against the recovery period from those interventio ns and whether they would give her increased quality of life for the time she has remaining. She has diffusely metastatic breast cancer with bony involvement of all of the visible spine and the skull. Whether or not she has an intrinsic brain lesion is unknown, but her CT scan looked relatively unrem arkable with regard to the parenchyma of the brain itself.
--- NOTE | 2018-08-19 18:41 | MRI ---
MRI OF THE BRAIN WITH AND WITHOUT IV CONTRAST: 08/19/18 HISTORY: Seizures, breast mass. FINDINGS: No restricted diffusion is seen. No evidence of infarct, hemorrhage, or intra-axial mass midline shif t or abnormal extra-axial fluid collections are noted. The ventricular size is appropriate and the ba silar cisterns are patent. Numerous enhancing lesions are seen in the calvarium, clivus, and upper/vi sualized portions of the cervical spine. There is mucosal disease in the paranasal sinuses. IMPRESSION: 1. Osseous/calvarial metastatic disease. 2. No evidence of brain metastases. POS: [facility]
--- NOTE | 2018-08-19 19:58 | CON ---
DATE OF CONSULTATION: 08/19/2018 REASON FOR CONSULT: Left breast mass. HISTORY OF PRESENT ILLNESS: Ms. Corcoran is a 63-year-old woman who was found down with witnessed seizur e-like activity. She was found to be in respiratory distress by EMS, so she was intubated and anisa t to the hospital. Imaging of the head, neck and chest revealed multiple lytic bone lesions and a la rge left breast mass and axillary lymphadenopathy as well as a loculated pleural effusion with possib le hemorrhagic component. The patient's cousin is at the bedside and states that the patient has nev er mentioned any concerns about her breast. She does state that the patient has never undergone mamm ography and told her family that if she got cancer, she would just have cancer. She has not mentione d any concerns about her breasts to her boyfriend of many years or to her son. She has no family his tory of breast or ovarian cancer. Her mother and her maternal uncle both of colon cancer in the ir 60s and her father had lung cancer by the family's report. Also by the family's report, the patie nt had been complaining of continued functional decline over recent months with pain in her back and loss of function in her left arm. She had undergone carpal tunnel and tennis elbow surgery without a ny improvement and had been seeing a neurologist for this. PAST MEDICAL HISTORY: All obtained through the chart as the patient is currently intubated and sedat ed. None according to the family, hypertension. PAST SURGICAL HISTORY: Left carpal tunnel, elbow surgery and hysterectomy. 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 FAMILY HISTORY: Colon cancer in first and second degree relatives on the same side of the family and lung cancer in her father. ALLERGIES: She has reported allergies to AUGMENTIN, CLINDAMYCIN, and SHRIMP. OUTPATIENT MEDICATIONS: Medications have not been confirmed, but reportedly she was on amlodipine/va lsartan, clonidine, gabapentin, hydrochlorothiazide, and p.r.n. ibuprofen and acetaminophen. REVIEW OF SYSTEMS: Not obtainable. PHYSICAL EXAMINATION: VITAL SIGNS: The patient has been afebrile since her admission. Heart rate 58, respirations on the vent, she is 98% saturated, blood pressure of 94/54. GENERAL: Reveals an intubated, sedated woman in no acute distress. She is not flushed or toxic or j aundiced in appearance. HEENT: Unremarkable. She does not have any cervical or supraclavicular lymphadenopathy. HEART: Regular in its rate and rhythm without murmurs, rubs or gallops. LUNGS: Clear to auscultation anteriorly, diminished in the left lateral position. ABDOMEN: Soft, nontender, nondistended and she does not have any palpable hepatosplenomegaly. EXTREMITIES: Warm and well perfused. She has obvious lymphedema of the left arm compared to the rig ht breast exam. She has pagetoid changes of over half of her breast with a firm mass filling the ent rodrigo lower breast and extending toward the axilla. She has matted fixed lymph nodes in her axilla. IMAGING DATA: Reviewed and I agree with written report. The patient has a large left breast mass, e xtensive lymphadenopathy in the axilla and multiple lytic lesions of the thoracic and cervical spine as well as the skull, ribs and left clavicle. ASSESSMENT: Metastatic breast cancer. She is not an operative candidate since she has fixed matted lymph nodes and involvement of most of the skin of her left breast. If she were able to consent to t reatment, chemotherapy would be most appropriate, although palliative in nature. However, the patien noah has effectively withheld consents through her past behavior and expressed added to her family. Cur rently, she is unable to express her wishes or participate in conversation. She is going down for an MRI to see if she has metastatic lesions of her brain which were not seen on CT. We will be straigh tforward to biopsy the skin and the mass of the left breast, but again I am concerned about issues of consent as well as what would be in the patient's best interest in terms of quality of life. I am c oncerned that this is apparently a very aggressive cancer. She did not have any metastatic lesions i n the brain or C-spine on an MRI done back in January. Hospice may be the best choice for this patient , but if she and her family decided to proceed with treatment, I am available to perform a biopsy at the bedside.
[2018-08-19] MEDS: Vancomycin HCl 1.75 GM in Sodium Chloride 0.9% 500 ML IVPB SCH (20:41)
--- NOTE | 2018-08-19 22:49 | CON ---
DATE OF CONSULTATION: 08/19/2018 HISTORY OF PRESENT ILLNESS: Gabrielle Corcoran is a 63-year-old female who presented with uncontrolled seizures. She was actually seizing when I evaluated her. These were coming and going and were mainly focal motor facial seizures. She is on propofol drip and receiving Keppra. Apparently, she has not had any complaints according to family. She has one son. PAST MEDICAL HISTORY: Remarkable for carpal tunnel surgeries, right elbow surgery as well as a hysterectomy. SOCIAL HISTORY: She is a smoker, not a daily drinker according to family. She has a negative review of systems. According to the family, she has not shared any concerns about a breast mass, although she did tell one of the family members that she did not get mammograms and if she ever got breast cancer that would be that she would go through any therapy. ALLERGIES: She reports PENICILLIN allergies and CLINDAMYCIN allergies. She is prior to admission on amlodipine, Catapres, and Lyrica. PHYSICAL EXAMINATION: GENERAL APPEARANCE: As mentioned, she was having focal motor facial seizures intermittently. VITAL SIGNS: She is afebrile, respiratory rate 16, heart rate 63, blood pressure 115/67. HEENT: Her pupils were sluggish. NECK: Supple. She has no cervical lymphadenopathy. LUNGS: Clear anteriorly. She had a massive left breast mass with hyperpigmentation. She has matted lymph node under her left arm and lymphedema under her left arm. HEART: Regular rhythm. ABDOMEN: Soft. EXTREMITIES: Without clubbing, cyanosis, or edema. LABORATORY DATA AND IMAGING DATA: White count 9.9, hemoglobin 14.9, platelets 224. Sodium 148, potassium 2.4, chloride 107, bicarbonate 27, BUN 70, creatinine 1.2. Liver enzymes are elevated. Total protein was elevated. Globulin is elevated. AST is 179, ALT is 111. CT pulmonary angiogram was of poor quality, no thromboembolic disease was seen. She has a large left effusion which is the side of her breast lesion. There are findings of metastatic bone disease. IMPRESSION: Widely metastatic breast cancer. Noncontrast head CT showed calvarial mass. I have recommended MRI magnetic resonance imaging of her brain to determine whether or not we were dealing with large metastases or multiple small mets, she obviously can be extubated until her seizures are controlled and at the time of dictation I have met with the family and answered all their questions. Her prognosis is quite poor. She would need chemotherapy and has verbalized the family that she would never go through treatment, but will continue with the workup. I do not feel an abdomen and pelvis CT is going to change immediate management. She has already received IV contrast for CT pulmonary angiogram. I do think a magnetic resonance imaging with and without contrast would be appropriate at this time. We will put a hold on abdomen and pelvis CT. I am sure she is going to have liver metastases. She clearly has metastatic disease in her pleural space and her bones. Critical care time 40 minutes. MTDD
[2018-08-20] MEDS: Sodium Chloride 0.9% 1,000 ML IV SCH ×3 (00:52→08:33)
[2018-08-20] MEDS: Calcitonin,Salmon,Synthetic 200 UNITS/ML SC SCH (00:52)
[2018-08-20] MEDS: Propofol 1,000 MG/100 ML VIAL IV PRN ×3 (00:52→20:36)
[2018-08-20] MEDS: Lorazepam 2 MG/ML VIAL SLOW IVP PRN ×2 (01:38→11:04)
--- NOTE | 2018-08-20 01:51 | CON ---
DATE OF CONSULTATION: 08/19/2018 Reason for Consult: Likely metastatic breast cancer and hypercalcemia. Patient was off the floor getting MRIs this evening when I went to see the patient, so I was unable to see her or her family. After chart review, patient has a large breast mass and diffuse osseous metastatic disease. She is currently intubated and has extremely high calcium levels likely from her breast cancer. Patient is receiving aggressive IV hydration and has received calcitonin and pamidronate. Hypercalcemia of malignancy is best treated with fluids and bisphosphonate therapy, generally Zometa, and calcitonin is occasionally used, although it has tachyphylaxis. The patient has already received pamidronate and calcitonin and continues to receive aggressive hydration. I would recommend continued aggressive hydration until her calcium level improves. Calcitonin can be redosed; however, the benefit decreases after the first dose. Recommend checking PTHrP which may be elevated due to humoral hypercalcemia of malignancy. I will see the patient tomorrow for a full consultation. Patient will require biopsy of her breast mass or metastatic lesion for confirmation and to determine breast cancer markers which would allow us to make treatment recommendations if the patient is eventually able to receive treatment. Prognosis is very guarded at this time. MTDD
[2018-08-20] MEDS: Acetaminophen 325 MG TAB PO PRN (04:40)
[2018-08-20 05:07] LABS: #Lymphocytes 0.9 thou/uL (1.20-3.40); #Monocytes 0.4 thou/uL (0.11-0.59); #Neutrophils 8.6 thou/uL (1.40-6.50); %Basophils 0.1 % (0.0-1.0); %Eosinophils 0.3 % (0.0-10.0); %Lymphocytes 8.7 % (21.0-51.0); %Monocytes 4.4 % (0.0-10.0); %Neutrophils 86.6 % (42.0-75.0); Hemoglobin 13.4 g/dL (12.0-16.0); Mean Corpuscular HGB CONC 31.4 g/dL (32.0-36.0); Mean Corpuscular Hemoglobin 30.6 pg (27.0-31.0); Mean Corpuscular Volume 97.4 fL (78.0-98.0); Mean Platelet Volume 10.7 fL (7.4-10.4); Platelet Count 199 thou/uL (130-400); RBC Distribution Width 12.6 % (11.5-14.5); Red Blood Cell (RBC) Count 4.36 mill/uL (4.20-5.40)
[2018-08-20] MEDS: Furosemide 20 MG/2 ML VIAL SLOW IVP SCH ×2 (05:28→14:38)
[2018-08-20 05:43] LABS: ALT (SGPT) 59 U/L (8-55); AST (SGOT) 165 U/L (5-34); Alkaline Phosphatase 144 U/L (40-150); Anion Gap 10 mmol/L (10-20); BUN (Urea Nitrogen) 20 mg/dL (9.8-20.1); Bilirubin, Total 0.6 mg/dL (0.2-1.2); Calc. Creatinine Clearance 0 mL/min (70-130); Calcium 11.4 mg/dL (7.8-10.44); Carbon Dioxide 29 mmol/L (23-31); Chloride 113 mmol/L (98-107); Estimated GFR-MDRD 51; Globulin 4.1 g/dL (2.4-3.5); Glucose 59 mg/dL (80-115); Potassium 2.4 mmol/L (3.5-5.1); Protein, Total 7.1 g/dL (6.0-8.3); Sodium 150 mmol/L (136-145)
[2018-08-20] MEDS ORDERED: Dextrose 50% Abboject 50 ML SYRINGE ONE (05:55)
[2018-08-20] MEDS ORDERED: Dextrose 50% Abboject 50 ML SYRINGE IVP PRN (07:47)
[2018-08-20] MEDS ORDERED: Dextrose 5% in Water 1,000 ML IV PRN (07:47)
[2018-08-20] MEDS: Enoxaparin Sodium 40 MG/0.4 ML SYRINGE SC SCH (08:32)
[2018-08-20] MEDS: Famotidine/PF 20 mg/2ml Vial SLOW IVP SCH (08:33)
[2018-08-20] MEDS: Vancomycin HCl 1.75 GM in Sodium Chloride 0.9% 500 ML IVPB SCH ×2 (08:33→20:31)
[2018-08-20] MEDS: levETIRAcetam In NaCl (Iso-Os) 1,500 MG in Premix Bag 1 BAG IVPB SCH ×2 (08:42→20:28)
--- NOTE | 2018-08-20 09:01 | CON ---
DATE OF CONSULTATION: 08/19/2018 NEUROLOGY CONSULTATION CONSULTING PHYSICIAN: Hospitalist Service. IMPRESSION: 1. Seizures. 2. Metastatic breast cancer. PLAN: 1. Increase Keppra to 1500 mg IV b.i.d. 2. Attempt to wean propofol. HISTORY OF PRESENT ILLNESS: Ms. Corcoran is a 63-year-old black female who came in after being found unr esponsive at home. She has had a personal known history of a breast mass that she did not have anyon e to investigate. She was brought in with what appeared to be seizure activity. She was intubated a nd loaded with 1500 mg of Keppra. She was started on a propofol drip due to continued seizure activi ty. Her MRI of the brain showed normal brain parenchyma, but there was evidence of bone and left men ingeal enhancement in multiple areas. LABORATORY STUDIES: Showed some hypokalemia and hypercalcemia. No other known history is available. ALLERGIES: SULFA, CLINDAMYCIN, CLAVULANIC ACID, SHRIMP, AMOXICILLIN. SOCIAL HISTORY: Unknown. FAMILY HISTORY: Unknown. REVIEW OF SYSTEMS: Not obtainable. PHYSICAL EXAMINATION: VITAL SIGNS: Blood pressure 115/62, pulse 86, respirations 24, so on ventilatory support, saturation s 97%. HEENT: Pupils are equal. Conjunctivae clear. She is orally intubated. Morbidly obese. She is minimally responsive to painful stimulation. She is on a propofol drip at this point. IMPRESSION: Middle-aged woman with new onset of seizures with leptomeningeal disease, present on MRI . Can increase her Keppra dose based on her weight and hopefully we can wean her off of the propofol drip.
[2018-08-20 09:13] LABS: Actual Bicarbonate (HCO3a) 29.5 mEq/L (22-28); CO2 Tension 47.9 mmHg (35.0-45.0); Calcium, Ionized 1.43 mmol/L (1.12-1.30); Carboxyhemoglobin (COHb) 1.2 gm% (0.0-3.0); Hemoglobin (Hb) 13.7 g/dL (12.0-16.0); O2 Tension (PaO2) 75.2 mmHg (> 80.0); Potassium - ABG Lab 2.24 mmol/L (3.70-5.30); pH, Arterial 7.41 (7.35-7.45)
[2018-08-20 09:16] LABS: ALV-art Gradient 150.125 (0-20); Puncture Site RRA
--- NOTE | 2018-08-20 10:41 | PDOC.PN ---
- Subjective Encounter Start Date: 08/20/18 Encounter Start Time: 09:40 Patient seen and examined. pt is on ventilator, No overnight events last night pt had fever, so culture done and started on antibiotics she has hypoglycemia - Objective Resuscitation Status: Resuscitation Status FULL:Full Resuscitation MAR Reviewed: Yes Vital Signs & Weight: Vital Signs (12 hours) Temp Pulse Resp BP 08/20/18 10:00 30 H 08/20/18 08:55 84 115/62 08/20/18 08:00 99.1 F 08/20/18 06:00 22 H 08/20/18 04:00 101.8 F H 24 H 08/20/18 03:29 102 H 08/20/18 02:00 26 H 08/20/18 00:00 99.3 F 20 08/19/18 23:24 87 140/77 Weight Admit Weight 256 lb Weight 4.229 oz Most Recent Monitor Data Heart Rate from ECG 93 NIBP 144/74 NIBP BP-Mean 97 Respiration from ECG 15 SpO2 98 I&O: 08/19/18 08/20/18 08/21/18 06:59 06:59 06:59 Intake Total 1918.6 7156.8 500 Output Total 1360 3430 1285 Balance 558.6 3726.8 -785 Result Diagrams: 08/20/18 04:15 08/20/18 04:15 Additional Labs: Accuchecks 08/20/18 08/20/18 06:28 06:01 POC Glucose 115 H 58 L* Radiology Reviewed by me: Yes (MRI brain reviewed) EKG Reviewed by me: Yes (nsr) Phys Exam - Physical Examination Constitutional: NAD intubated HEENT: PERRLA, sclera anicteric Neck: no JVD, supple Respiratory: no wheezing, no rales, no rhonchi Cardiovascular: RRR, no significant murmur, no rub Gastrointestinal: soft, no distention, positive bowel sounds Musculoskeletal: no edema, pulses present SCD+ unable to assess due to sedated on vent Lymphatic: no nodes Deviation from normal: unable to assess Skin: no rash, normal turgor Dx/Plan (1) Acute respiratory failure with hypoxia Code(s): J96.01 - ACUTE RESPIRATORY FAILURE WITH HYPOXIA Status: Acute (2) Acute kidney injury Code(s): N17.9 - ACUTE KIDNEY FAILURE, UNSPECIFIED Status: Acute (3) Acute metabolic encephalopathy Code(s): G93.41 - METABOLIC ENCEPHALOPATHY Status: Acute (4) Axillary lymphadenopathy Code(s): R59.0 - LOCALIZED ENLARGED LYMPH NODES Status: Acute (5) Hypercalcemia of malignancy Code(s): E83.52 - HYPERCALCEMIA Status: Acute (6) Hypokalemia Code(s): E87.6 - HYPOKALEMIA Status: Acute (7) Left breast mass Code(s): N63.20 - UNSPECIFIED LUMP IN THE LEFT BREAST, UNSPECIFIED QUADRANT Status: Acute (8) Osseous metastasis Code(s): C79.51 - SECONDARY MALIGNANT NEOPLASM OF BONE Status: Acute (9) Pleural effusion, left Code(s): J90 - PLEURAL EFFUSION, NOT ELSEWHERE CLASSIFIED Status: Acute (10) Seizure Code(s): R56.9 - UNSPECIFIED CONVULSIONS Status: Acute (11) Transaminitis Code(s): R74.0 - NONSPEC ELEV OF LEVELS OF TRANSAMNS & LACTIC ACID DEHYDRGNSE Status: Acute (12) UTI (urinary tract infection) Status: Acute (13) Hypoglycemia Code(s): E16.2 - HYPOGLYCEMIA, UNSPECIFIED Status: Acute - Plan cont current plan of care, continue antibiotics * pulmonary, surgeon and oncology recommendation appreciated * today will change IVF to Dex with NS with 20 meq KCL at 125 ml per hour * calcium improving, replace potassium * give sedation vacation, and weaning will defer to pulmonary * neurology increased dose of keppra * once pt is awake and then she has to make her own decision regarding treatment goal * medication reviewed as below * symptomatic treatment * prognosis is very poor. Review of Systems - Review of Systems Other: unable to review due to intubated status - Medications/Allergies Allergies/Adverse Reactions: Allergies Allergy/AdvReac Type Severity Reaction Status Date / Time amoxicillin [From Augmentin] Allergy Diarrhea Verified 01/24/18 12:57 clavulanic acid Allergy Diarrhea Verified 01/24/18 12:57 [From Augmentin] clindamycin Allergy diarrhea/di Verified 01/24/18 12:57 zziness shrimp Allergy Anaphylaxis Verified 01/24/18 12:57 Sulfa (Sulfonamide Allergy Rash Verified 01/24/18 12:57 Antibiotics) Medications: Current Medications Acetaminophen (Tylenol) 650 mg PO Q4H PRN PRN Reason: Headache/Fever or Pain Last Admin: 08/20/18 04:40 Dose: 650 mg Albuterol Sulfate (Albuterol Sulfate) 1.25 mg NEB Q4H PRN PRN Reason: Wheezing Artificial Tears (Tears Naturale) 0 drop EA EYE PRN PRN PRN Reason: Dry Eyes Bisacodyl (Dulcolax) 10 mg SC DAILYPRN PRN PRN Reason: Constipation Calcitonin [place] (Calcimar) 400 units SC 0130 PENDING SALE TO [facility] Stop: 08/22/18 01:31 Last Admin: 08/20/18 00:52 Dose: 400 unit Dextrose/Water (Dextrose 50%) 25 gm IVP PRN PRN PRN Reason: HYPOGLYCEMIA PROTOCOL Enoxaparin Sodium (Lovenox) 40 mg SC 0900 PENDING SALE TO [facility] Last Admin: 08/20/18 08:32 Dose: 40 mg Famotidine (Pepcid) 20 mg SLOW IVP DAILY PENDING SALE TO [facility] Last Admin: 08/20/18 08:33 Dose: 20 mg Furosemide (Lasix) 20 mg SLOW IVP 0600,1400 PENDING SALE TO [facility] Last Admin: 08/20/18 05:28 Dose: 20 mg Glucagon (Glucagon) 1 mg IM PRN PRN PRN Reason: HYPOGLYCEMIA PROTOCOL Hydralazine HCl (Apresoline) 10 mg SLOW IVP Q4H PRN PRN Reason: Systolic BP > 180 Fentanyl Citrate 2,000 mcg/ (Sodium Chloride) 100 mls @ 0 mls/hr IV INF PENDING SALE TO [facility]; Protocol Stop: 09/17/18 21:52 Last Admin: 08/19/18 18:09 Dose: 100 mls Fentanyl Citrate (Fentanyl Bolus) 250 mls @ 0 mls/hr IVPB PRN PRN PRN Reason: Breakthrough pain/agitation Stop: 09/17/18 23:15 Vancomycin HCl 1.75 gm/ Sodium (Chloride) 500 mls @ 250 mls/hr IVPB Q12HR PENDING SALE TO [facility] Last Admin: 08/20/18 08:33 Dose: 500 mls Dextrose/Water (D5w) 1,000 mls @ 0 mls/hr IV INF PRN PRN Reason: HYPOGLYCEMIA PROTOCOL Levetiracetam 1,500 mg/ Device 100 mls @ 200 mls/hr IVPB BID PENDING SALE TO [facility] Last Admin: 08/20/18 08:42 Dose: 100 mls Potassium Chloride/Dextrose/Sod Cl (D5 0.9% Ns W/ 20 Meq Kcl) 1,000 mls @ 125 mls/hr IV .Q8H ARLENE Lorazepam (Ativan) 2 mg SLOW IVP Q1H PRN PRN Reason: Breakthrough agitation Stop: 09/17/18 23:15 Last Admin: 08/20/18 01:38 Dose: 2 mg Mineral Oil/White Petrolatum (Eucerin Cream) 0 gm TOP BIDPRN PRN PRN Reason: Dry Skin Miscellaneous Medication (Pharmacy To Dose) 1 each IVPB PRN PRN PRN Reason: . Morphine Sulfate (Morphine Sulfate) 2 mg SLOW IVP Q1H PRN PRN Reason: BREAKTHROUGH PAIN/AGITATION Stop: 09/17/18 23:15 Ondansetron HCl (Zofran) 4 mg IVP Q6H PRN PRN Reason: Nausea/Vomiting Propofol (Diprivan) 1,000 mg IV INF PRN; Protocol PRN Reason: TO ACHIEVE GOAL RASS Stop: 09/17/18 23:15 Last Admin: 08/20/18 05:26 Dose: 1,000 mg Propofol (Diprivan Bolus) 20 mg IV Q5MIN PRN PRN Reason: BREAKTHROUGH AGITATION Stop: 09/17/18 23:15 Sodium Chloride (Flush - Normal Saline) 10 ml IVF Q12HR ARLENE Last Admin: 08/20/18 08:33 Dose: 10 ml Sodium Chloride (Flush - Normal Saline) 10 ml IVF PRN PRN PRN Reason: Saline Flush Vecuronium [place] (Norcuron) 10 mg IV Q1H PRN PRN Reason: Agitation Last Admin: 08/19/18 16:50 Dose: 10 mg
[2018-08-20] MEDS: D5 0.9% NS w/ 20 mEq KCl 1,000 ML IV SCH ×2 (11:13→18:25)
--- NOTE | 2018-08-20 13:27 | CON ---
DATE OF CONSULTATION: 08/20/2018 REASON FOR CONSULTATION: Metastatic breast cancer and hypercalcemia. HISTORY OF PRESENT ILLNESS: A 63-year-old female with tobacco abuse, came to the [facility] after being found unresponsive and having an episode like a seizure. This was reported by her son. When EMS came to the scene, they found the patient was in respiratory distress. She was intub ated and given Versed. The patient is currently admitted to the ICU and is intubated and sedated. S he has been on sedation vacation and continues to seize. Upon admission to the hospital on 8, her calcium was found to be 15.6. She received aggressive IV hydration, pamidronate and calcitoni n with improvement of her calcium to 11.4 today. Upon exam, she was found to have a giant left breas t mass with left axillary lymphadenopathy. As per family, she had been complaining of diffuse body p ains including bone pains over the last few months. The patient had a brain MRI that did not show br ain metastases, but did show calvarial metastatic disease. A CT of the chest was done with contrast showing no evidence of pulmonary embolism, however, did show findings suspicious for mass involving t he left breast and left axillary lymphadenopathy and osseous metastatic disease of the chest. The pa yordy is currently unresponsive to touch, although she is currently sedated as well. REVIEW OF SYSTEMS: Ten-point review of systems unable to be obtained due to the patient's sedated st atus. PAST MEDICAL HISTORY: None reported by the family. PAST SURGICAL HISTORY: Left elbow and wrist surgery, right elbow surgery, carpal tunnel surgery, hys terectomy. SOCIAL HISTORY: One pack per day, unknown amount of years. FAMILY HISTORY: Unable to obtain at this time. ALLERGIES: AMOXICILLIN, CLAVULANIC ACID and CLINDAMYCIN. MEDICATIONS: Reviewed. PHYSICAL EXAMINATION: VITAL SIGNS: Stable. GENERAL APPEARANCE: The patient is intubated and sedated. HEENT: Sclerae anicteric. NECK: No JVD. RESPIRATORY: Clear to auscultation bilaterally without wheezing. CARDIOVASCULAR: S1, S2 heard. Regular rate and rhythm. No murmurs, rubs or gallops. ABDOMEN: Obese, soft, nondistended. EXTREMITIES: Bilateral upper extremity edema, left greater than right. SCDs on bilateral lower extr emities. NEUROLOGIC: The patient is sedated and intubated and not responsive to touch or name at this time. LYMPH: Palpable left axillary lymphadenopathy. BREASTS: Large pendulous left breast with extensive skin infiltration and nipple erosion consistent with inflammatory breast cancer. Breast is black and very hard to the touch, almost wooden. LABORATORY DATA: White blood cells 10.0, hemoglobin 13.4, platelets 199,000. Calcium 11.4. Sodium 150, BUN 20, creatinine 1.28, bilirubin 0.6, AST 165, ALT 59, albumin 3.0. IMAGING DATA: CT angio of the chest dated 08/18/2018, no evidence of pulmonary embolism, lobulated u p to 7 cm soft tissue density involving the left breast, lobulated soft tissue density in the left ax illa. Few subcentimeter mediastinal lymph nodes. Multifocal lytic lesions throughout the axial skel eton. MRI brain dated 08/19/2018, no evidence of brain metastases. Osseous calvarial metastatic dis ease is present. ASSESSMENT AND PLAN: A 63-year-old female with metastatic breast cancer presenting to the hospital unresponsive status post seizure, currently intubated and sedated in the ICU. The pa tient was found to have a very high calcium level, which has improved after aggressive IV hydration, pamidronate and calcitonin therapy. The patient has a large left breast mass. There was infiltrate at the skin consistent with inflammatory breast cancer with diffuse osseous metastatic disease and so me mediastinal lymphadenopathy. She has not had a CT of the abdomen and pelvis to evaluate for other areas of metastatic disease. MRI of the brain showed lesions in her skull; however, no brain parenc hymal metastatic disease. The patient was evaluated by Dr. Palomo for biopsy of her left breast mas s. However, the patient has effectively withheld consents through past behaviors and expressed these wishes to her family. Therefore, no biopsy is currently planned. If the patient is able to become alert enough to consent for herself, then Dr. Palomo will consider a biopsy at that time. I agree w ith Dr. Palomo and there is no indication for biopsy at this point unless the patient's medical and mental status improve and she is able to consent for further workup and possible treatment. Judging by the aggressiveness of her breast cancer, it is likely a triple negative breast cancer or possibly HER2 positive. If the patient does become alert and consent to further workup, then Dr. Palomo can perform the biopsy and I will be available to discuss the results with the patient and her family. I will sign off, but please reconsult me if the patient and her family wish. I will be available to deejay stuart with them. Thank you for this consult.
[2018-08-20] MEDS ORDERED: Potassium Chloride 20 MEQ in Premix Bag 1 BAG IVPB ONE (14:00)
--- NOTE | 2018-08-21 00:55 | PRG ---
DATE OF SERVICE: 08/20/2018 SUBJECTIVE: Ms. Corcoran started seizing continuously the minute her propofol was turned off. The MRI did not show structural brain lesions, but I suspect she has meningeal involvement. Lumbar puncture might be helpful in sorting through this. OBJECTIVE: VITAL SIGNS: Her blood pressure is 119/63, heart rate 77, respiratory rates in the teens. LUNGS: Clear. HEART: Regular rhythm. ABDOMEN: Soft. LABORATORY DATA: White count is 10, hemoglobin 13.4, platelets 199,000. Sodium 150, potassium 2.4, chloride 113, bicarbonate 29, BUN 20, creatinine 1.28. PH 7.41, CO2 of 47, pO2 of 75. IMPRESSION: Widely metastatic breast cancer with ongoing seizure activity. It is most likely a reflection meningeal involvement. She does not have any visualized structural changes. We will continue with supportive care. She really needs continuous EEG monitoring to document resolution of her seizure activities, but we do not have that available at this time. We will continue with supportive care and adjustment of seizure medications. Her prognosis is dismal. Critical care time is 35 minutes. RAQUEL
[2018-08-21] MEDS: Calcitonin,Salmon,Synthetic 200 UNITS/ML SC SCH (00:57)
[2018-08-21] MEDS: Propofol 1,000 MG/100 ML VIAL IV PRN ×5 (01:45→22:38)
[2018-08-21] MEDS: D5 0.9% NS w/ 20 mEq KCl 1,000 ML IV SCH (01:53)
[2018-08-21] MEDS: Furosemide 20 MG/2 ML VIAL SLOW IVP SCH (06:03)
[2018-08-21 07:45] LABS: Actual Bicarbonate (HCO3a) 29.1 mEq/L (22-28); CO2 Tension 41.2 mmHg (35.0-45.0); Calcium, Ionized 1.28 mmol/L (1.12-1.30); Carboxyhemoglobin (COHb) 1.3 gm% (0.0-3.0); Hemoglobin (Hb) 13.9 g/dL (12.0-16.0); O2 Tension (PaO2) 73.2 mmHg (> 80.0); Potassium - ABG Lab 2.43 mmol/L (3.70-5.30); pH, Arterial 7.47 (7.35-7.45)
[2018-08-21 08:12] LABS: Puncture Site RRA
[2018-08-21 08:47] LABS: Vancomycin, Trough 20.6 ug/mL
[2018-08-21] MEDS: Enoxaparin Sodium 40 MG/0.4 ML SYRINGE SC SCH (09:29)
[2018-08-21] MEDS: levETIRAcetam In NaCl (Iso-Os) 1,500 MG in Premix Bag 1 BAG IVPB SCH ×2 (09:29→20:03)
[2018-08-21] MEDS: Famotidine/PF 20 mg/2ml Vial SLOW IVP SCH (09:29)
[2018-08-21] MEDS: D5 1/2 NS w/20 mEq KCL 1,000 ML IV SCH ×2 (09:30→17:33)
[2018-08-21 10:27] LABS: Anion Gap 12 mmol/L (10-20); BUN (Urea Nitrogen) 17 mg/dL (9.8-20.1); Calc. Creatinine Clearance 100 mL/min (70-130); Calcium 9.9 mg/dL (7.8-10.44); Carbon Dioxide 27 mmol/L (23-31); Chloride 116 mmol/L (98-107); Estimated GFR-MDRD 60; Glucose 102 mg/dL (80-115); Sodium 152 mmol/L (136-145)
[2018-08-21 10:32] LABS: Hemoglobin 13.2 g/dL (12.0-16.0); Mean Corpuscular HGB CONC 31.3 g/dL (32.0-36.0); Mean Corpuscular Hemoglobin 30.8 pg (27.0-31.0); Mean Corpuscular Volume 98.7 fL (78.0-98.0); Mean Platelet Volume 10.8 fL (7.4-10.4); Platelet Count 188 thou/uL (130-400); RBC Distribution Width 12.9 % (11.5-14.5); Red Blood Cell (RBC) Count 4.28 mill/uL (4.20-5.40); White Blood Cell (WBC) Count 12.2 thou/uL (4.8-10.8)
[2018-08-21 10:33] LABS: Potassium 2.5 mmol/L (3.5-5.1)
--- NOTE | 2018-08-21 10:38 | PDOC.PN ---
- Subjective Encounter Start Date: 08/21/18 Encounter Start Time: 09:40 Patient seen and examined. pt is on ventilator, No overnight events - Objective Resuscitation Status: Resuscitation Status FULL:Full Resuscitation MAR Reviewed: Yes Vital Signs & Weight: Vital Signs (12 hours) Temp Pulse Resp BP 08/21/18 10:00 29 H 08/21/18 08:00 26 H 08/21/18 07:31 81 117/53 L 08/21/18 07:00 98.6 F 08/21/18 06:00 27 H 08/21/18 04:00 99.3 F 25 H 08/21/18 03:01 87 08/21/18 02:00 20 08/21/18 00:00 99.5 F 30 H 08/20/18 23:34 77 128/66 Weight Admit Weight 256 lb Weight 264 lb 1.82 oz Most Recent Monitor Data Heart Rate from ECG 100 NIBP 139/78 NIBP BP-Mean 98 Respiration from ECG 30 SpO2 100 I&O: 08/20/18 08/21/18 08/22/18 06:59 06:59 06:59 Intake Total 7156.8 5206.6 100 Output Total 3430 3995 1790 Balance 3726.8 1211.6 -1690 Result Diagrams: 08/21/18 08:13 08/21/18 08:13 Additional Labs: Accuchecks 08/20/18 08/20/18 08/20/18 18:05 11:51 08:39 POC Glucose 79 78 73 EKG Reviewed by me: Yes (nsr) Phys Exam - Physical Examination Constitutional: NAD on ventilator HEENT: PERRLA, sclera anicteric Neck: no JVD, supple Respiratory: no wheezing, no rales, no rhonchi anteriorly Cardiovascular: RRR, no significant murmur, no rub Gastrointestinal: soft, no distention, positive bowel sounds Musculoskeletal: no edema, pulses present unable to assess Lymphatic: no nodes Deviation from normal: unable to assess Skin: no rash, normal turgor Dx/Plan (1) Acute respiratory failure with hypoxia Code(s): J96.01 - ACUTE RESPIRATORY FAILURE WITH HYPOXIA Status: Acute (2) Acute kidney injury Code(s): N17.9 - ACUTE KIDNEY FAILURE, UNSPECIFIED Status: Acute (3) Acute metabolic encephalopathy Code(s): G93.41 - METABOLIC ENCEPHALOPATHY Status: Acute (4) Axillary lymphadenopathy Code(s): R59.0 - LOCALIZED ENLARGED LYMPH NODES Status: Acute (5) Hypercalcemia of malignancy Code(s): E83.52 - HYPERCALCEMIA Status: Acute (6) Hypokalemia Code(s): E87.6 - HYPOKALEMIA Status: Acute (7) Left breast mass Code(s): N63.20 - UNSPECIFIED LUMP IN THE LEFT BREAST, UNSPECIFIED QUADRANT Status: Acute (8) Osseous metastasis Code(s): C79.51 - SECONDARY MALIGNANT NEOPLASM OF BONE Status: Acute (9) Pleural effusion, left Code(s): J90 - PLEURAL EFFUSION, NOT ELSEWHERE CLASSIFIED Status: Acute (10) Transaminitis Code(s): R74.0 - NONSPEC ELEV OF LEVELS OF TRANSAMNS & LACTIC ACID DEHYDRGNSE Status: Acute (11) UTI (urinary tract infection) Status: Acute (12) Hypoglycemia Code(s): E16.2 - HYPOGLYCEMIA, UNSPECIFIED Status: Acute (13) Status epilepticus Code(s): G40.901 - EPILEPSY, UNSP, NOT INTRACTABLE, WITH STATUS EPILEPTICUS Status: Acute - Plan cont current plan of care * medication reviewed as below * symptomatic treatment * change IVF dex 1/2 ns with kcl at 100 ml per hour * DC Lasix * continue antiepileptic meds as per neurology. * vent as per pulmonary Review of Systems - Review of Systems Other: unable to review due to intubated status - Medications/Allergies Allergies/Adverse Reactions: Allergies Allergy/AdvReac Type Severity Reaction Status Date / Time amoxicillin [From Augmentin] Allergy Diarrhea Verified 01/24/18 12:57 clavulanic acid Allergy Diarrhea Verified 01/24/18 12:57 [From Augmentin] clindamycin Allergy diarrhea/di Verified 01/24/18 12:57 zziness shrimp Allergy Anaphylaxis Verified 01/24/18 12:57 Sulfa (Sulfonamide Allergy Rash Verified 01/24/18 12:57 Antibiotics) Medications: Current Medications Acetaminophen (Tylenol) 650 mg PO Q4H PRN PRN Reason: Headache/Fever or Pain Last Admin: 08/20/18 04:40 Dose: 650 mg Albuterol Sulfate (Albuterol Sulfate) 1.25 mg NEB Q4H PRN PRN Reason: Wheezing Albuterol/Ipratropium (Duoneb) 3 ml NEB [id number] [facility] Artificial Tears (Tears Naturale) 0 drop EA EYE PRN PRN PRN Reason: Dry Eyes Bisacodyl (Dulcolax) 10 mg CO DAILYPRN PRN PRN Reason: Constipation Dextrose/Water (Dextrose 50%) 25 gm IVP PRN PRN PRN Reason: HYPOGLYCEMIA PROTOCOL Enoxaparin Sodium (Lovenox) 40 mg SC 0900 [facility] Last Admin: 08/21/18 09:29 Dose: 40 mg Famotidine (Pepcid) 20 mg SLOW IVP DAILY [facility] Last Admin: 08/21/18 09:29 Dose: 20 mg Glucagon (Glucagon) 1 mg IM PRN PRN PRN Reason: HYPOGLYCEMIA PROTOCOL Hydralazine HCl (Apresoline) 10 mg SLOW IVP Q4H PRN PRN Reason: Systolic BP > 180 Fentanyl Citrate 2,000 mcg/ (Sodium Chloride) 100 mls @ 0 mls/hr IV INF [facility]; Protocol Stop: 09/17/18 21:52 Last Admin: 08/19/18 18:09 Dose: 100 mls Fentanyl Citrate (Fentanyl Bolus) 250 mls @ 0 mls/hr IVPB PRN PRN PRN Reason: Breakthrough pain/agitation Stop: 09/17/18 23:15 Dextrose/Water (D5w) 1,000 mls @ 0 mls/hr IV INF PRN PRN Reason: HYPOGLYCEMIA PROTOCOL Levetiracetam 1,500 mg/ Device 100 mls @ 200 mls/hr IVPB BID [facility] Last Admin: 08/21/18 09:29 Dose: 100 mls Potassium Chloride/Dextrose/Sod Cl (D5 1/2 Ns W/20 Meq Kcl) 1,000 mls @ 100 mls /hr IV .Q10H [facility] Last Admin: 08/21/18 09:30 Dose: 1,000 mls Lorazepam (Ativan) 2 mg SLOW IVP Q1H PRN PRN Reason: Breakthrough agitation Stop: 09/17/18 23:15 Last Admin: 08/20/18 11:04 Dose: 2 mg Mineral Oil/White Petrolatum (Eucerin Cream) 0 gm TOP BIDPRN PRN PRN Reason: Dry Skin Morphine Sulfate (Morphine Sulfate) 2 mg SLOW IVP Q1H PRN PRN Reason: BREAKTHROUGH PAIN/AGITATION Stop: 09/17/18 23:15 Ondansetron HCl (Zofran) 4 mg IVP Q6H PRN PRN Reason: Nausea/Vomiting Propofol (Diprivan) 1,000 mg IV INF PRN; Protocol PRN Reason: TO ACHIEVE GOAL RASS Stop: 09/17/18 23:15 Last Admin: 08/21/18 06:49 Dose: 1,000 mg Propofol (Diprivan Bolus) 20 mg IV Q5MIN PRN PRN Reason: BREAKTHROUGH AGITATION Stop: 09/17/18 23:15 Sodium Chloride (Flush - Normal Saline) 10 ml IVF Q12HR [facility] Last Admin: 08/21/18 09:30 Dose: 10 ml Sodium Chloride (Flush - Normal Saline) 10 ml IVF PRN PRN PRN Reason: Saline Flush
--- NOTE | 2018-08-21 10:47 | CON ---
DATE OF CONSULTATION: 08/21/2018 HISTORY OF PRESENT ILLNESS: Ms. Corcoran remains intubated on the ventilator. She was started on full d ose Keppra yesterday. She has gotten a bit more responsive though, still not following commands. Sh e has some partial spontaneous eye opening with left eye deviation. She has had some random movement in the right hand with increased tone on that side as compared to the left. Plantar responses are u pgoing bilaterally. There is no spontaneous leg movement. No definite seizure activity has been wit nessed by the nursing staff. Vital signs remained stable. I suggest we repeat a CAT scan of the brain to see if there is any new visible structural etiology to the seizures, also check an EEG tomorrow to see if there is ongoing subclinical seizure activity.
[2018-08-21 10:54] LABS: Band 12 % (5-11); Lymphocytes 23 % (21-51); MDiff Complete? YES; Monocytes 4 % (0-10); Neutrophil 61 % (42-75)
[2018-08-21] MEDS ORDERED: Magnesium Sulfate 2 GM in Sodium Chloride 0.9% 100 ML IVPB SCH (12:30)
[2018-08-21] MEDS: Lorazepam 2 MG/ML VIAL SLOW IVP PRN (20:02)
--- NOTE | 2018-08-21 20:39 | PRG ---
DATE OF SERVICE: 08/21/2018 SUBJECTIVE: Ms. Corcoran is stable. Her sedation holiday this morning did not reveal focal motor seizur es. We do not have EEG available on the weekends, so there is no way to assess whether or not she is subclinically seizing. OBJECTIVE: VITAL SIGNS: Blood pressure this afternoon is 128/71, heart rates in the 70s, respiratory rates in t he 20s. LUNGS: Clear. HEART: Regular rhythm. ABDOMEN: Soft. LABORATORY DATA: White count 12.2, hemoglobin 13.2, platelets 188,000. Sodium 152, potassium 2.5, c hloride 116, bicarb 27, BUN 17, creatinine 1.12. IMPRESSION: Respiratory failure associated with status epilepticus associated with metastatic breast cancer. Another CT was ordered for her tomorrow by Neurology. Her hyperchloremia is iatrogenic and Ms. Corcoran would benefit from more free water. It would be reason able to place her on simply D5W. We will continue to follow with the other physicians caring for her. Critical care time is 30 minutes. I met with the family and answered all their questions today.
[2018-08-22] MEDS: Propofol 1,000 MG/100 ML VIAL IV PRN ×5 (02:11→22:53)
[2018-08-22] MEDS: Lorazepam 2 MG/ML VIAL SLOW IVP PRN ×2 (03:26→22:53)
[2018-08-22] MEDS: D5 1/2 NS w/20 mEq KCL 1,000 ML IV SCH ×2 (05:05→14:30)
[2018-08-22 05:13] LABS: #Basophils 0.1 thou/uL (0.0-0.2); #Eosinphils 0.1 thou/uL (0.0-0.7); #Lymphocytes 2.2 thou/uL (1.20-3.40); #Monocytes 0.9 thou/uL (0.11-0.59); #Neutrophils 8.1 thou/uL (1.40-6.50); %Basophils 0.8 % (0.0-1.0); %Eosinophils 0.5 % (0.0-10.0); %Lymphocytes 19.7 % (21.0-51.0); %Monocytes 7.6 % (0.0-10.0); %Neutrophils 71.4 % (42.0-75.0); Hemoglobin 12.4 g/dL (12.0-16.0); Mean Corpuscular HGB CONC 30.5 g/dL (32.0-36.0); Mean Corpuscular Volume 98.4 fL (78.0-98.0); Mean Platelet Volume 10.5 fL (7.4-10.4); Platelet Count 200 thou/uL (130-400); Red Blood Cell (RBC) Count 4.11 mill/uL (4.20-5.40); White Blood Cell (WBC) Count 11.4 thou/uL (4.8-10.8)
[2018-08-22 05:35] LABS: ALT (SGPT) 35 U/L (8-55); AST (SGOT) 134 U/L (5-34); Albumin 2.8 g/dL (3.4-4.8); Alkaline Phosphatase 158 U/L (40-150); Anion Gap 13 mmol/L (10-20); BUN (Urea Nitrogen) 15 mg/dL (9.8-20.1); Bilirubin, Total 0.8 mg/dL (0.2-1.2); Calc. Creatinine Clearance 105 mL/min (70-130); Calcium 9.4 mg/dL (7.8-10.44); Carbon Dioxide 27 mmol/L (23-31); Chloride 116 mmol/L (98-107); Estimated GFR-MDRD 64; Globulin 4.3 g/dL (2.4-3.5); Glucose 95 mg/dL (80-115); Magnesium 1.5 mg/dL (1.6-2.6); Protein, Total 7.1 g/dL (6.0-8.3); Sodium 153 mmol/L (136-145)
[2018-08-22 05:40] LABS: Potassium 2.5 mmol/L (3.5-5.1)
[2018-08-22 07:29] LABS: Actual Bicarbonate (HCO3a) 26.8 mEq/L (22-28); Base Excess (BEa) 3.1 mEq/L (-2.0 to +3.0); CO2 Tension 37.6 mmHg (35.0-45.0); Carboxyhemoglobin (COHb) 0.7 gm% (0.0-3.0); Hemoglobin (Hb) 12.2 g/dL (12.0-16.0); O2 Tension (PaO2) 78.1 mmHg (> 80.0); Potassium - ABG Lab 2.44 mmol/L (3.70-5.30); pH, Arterial 7.47 (7.35-7.45)
[2018-08-22] MEDS ORDERED: Magnesium Sulfate 4 GM in Sodium Chloride 0.9% 250 ML 250 ML IVPB SCH (07:30)
[2018-08-22] MEDS ORDERED: Potassium Phosphate 30 MMOL in Sodium Chloride 0.9% 250 ML 250 ML IVPB SCH (07:30)
[2018-08-22 07:32] LABS: Puncture Site RRA
--- NOTE | 2018-08-22 07:47 | CT ---
CT OF THE BRAIN WITHOUT CONTRAST: Date: 08/22/18 INDICATION: Follow-up CT evaluation for seizure activity. COMPARISON: Prior MRI of the brain dated 08/19/[address] of the brain dated 08/18/18. FINDINGS: Slight motion artifact limits image detail. The patient is intubated. There are small air fluid level s within the sphenoid and ethmoid air cells of the paranasal sinuses. The mastoid air cells are clear . No definite acute infarct, hemorrhage, or hydrocephalus is present. Numerous lytic lesions are agai n seen involving the calvarium consistent with osseous metastatic disease. IMPRESSION: 1. No acute intracranial abnormality. 2. Stable calvarial osseous metastatic disease. 3. Intubation with air fluid levels within the posterior ethmoid air cells and sphenoid sinus. POS: BH
[2018-08-22] MEDS: levETIRAcetam In NaCl (Iso-Os) 1,500 MG in Premix Bag 1 BAG IVPB SCH ×2 (08:09→20:00)
[2018-08-22] MEDS: Enoxaparin Sodium 40 MG/0.4 ML SYRINGE SC SCH (08:13)
[2018-08-22] MEDS: Famotidine/PF 20 mg/2ml Vial SLOW IVP SCH (08:13)
--- NOTE | 2018-08-22 10:35 | PRG ---
DATE OF SERVICE: 08/22/2018 Gabrielle Corcoran remains mechanically ventilated. We are awaiting EEG. PHYSICAL EXAMINATION: VITAL SIGNS: This morning respiratory rates in the 20s. Blood pressure 111/52 , heart rate is 83. LUNGS: Clear. HEART: Regular rhythm. ABDOMEN: Soft. Head CT showed the bony mets. IMPRESSION: Status epilepticus associated with likely meningeal involvement of her metastatic breast cancer. I doubt she has meningitis or encephalitis, but it still remains in the differential. PLAN: Per Neurology. She is not weanable at this time. Critical care time is 35 minutes. MTDD
--- NOTE | 2018-08-22 10:59 | PDOC.PN ---
- Subjective Encounter Start Date: 08/22/18 Encounter Start Time: 10:10 Patient seen and examined. pt is on ventilator. No overnight events - Objective Resuscitation Status: Resuscitation Status FULL:Full Resuscitation MAR Reviewed: Yes Vital Signs & Weight: Vital Signs (12 hours) Temp Pulse Resp BP Pulse Ox 08/22/18 10:14 86 105/46 L 08/22/18 10:13 86 30 H 96 08/22/18 08:00 29 H 08/22/18 07:20 99 08/22/18 07:12 83 93/42 L 08/22/18 07:11 74 25 H 99 08/22/18 07:00 98.3 F 08/22/18 06:00 22 H 08/22/18 04:00 98.2 F 26 H 08/22/18 02:25 85 08/22/18 02:00 26 H 08/22/18 00:00 98.6 F 27 H 08/21/18 23:06 82 109/52 L 08/21/18 23:05 100 Weight Admit Weight 256 lb Weight 258 lb 6.108 oz Most Recent Monitor Data Heart Rate from ECG 83 NIBP 105/46 NIBP BP-Mean 65 Respiration from ECG 23 SpO2 99 I&O: 08/21/18 08/22/18 08/23/18 06:59 06:59 06:59 Intake Total 5206.6 3459 100 Output Total 3995 3575 235 Balance 1211.6 -116 -135 Result Diagrams: 08/22/18 04:25 08/22/18 04:25 EKG Reviewed by me: Yes (nsr) Phys Exam - Physical Examination Constitutional: NAD on vent HEENT: PERRLA, sclera anicteric Neck: no JVD, supple Respiratory: no wheezing, no rales, no rhonchi Cardiovascular: RRR, no significant murmur, no rub Gastrointestinal: soft, no distention, positive bowel sounds Musculoskeletal: no edema, pulses present scd+ unable to assess due to intubated status Lymphatic: no nodes Skin: no rash, normal turgor Dx/Plan (1) Acute respiratory failure with hypoxia Code(s): J96.01 - ACUTE RESPIRATORY FAILURE WITH HYPOXIA Status: Acute (2) Acute kidney injury Code(s): N17.9 - ACUTE KIDNEY FAILURE, UNSPECIFIED Status: Acute (3) Acute metabolic encephalopathy Code(s): G93.41 - METABOLIC ENCEPHALOPATHY Status: Acute (4) Axillary lymphadenopathy Code(s): R59.0 - LOCALIZED ENLARGED LYMPH NODES Status: Acute (5) Hypercalcemia of malignancy Code(s): E83.52 - HYPERCALCEMIA Status: Acute (6) Hypokalemia Code(s): E87.6 - HYPOKALEMIA Status: Acute (7) Left breast mass Code(s): N63.20 - UNSPECIFIED LUMP IN THE LEFT BREAST, UNSPECIFIED QUADRANT Status: Acute (8) Osseous metastasis Code(s): C79.51 - SECONDARY MALIGNANT NEOPLASM OF BONE Status: Acute (9) Pleural effusion, left Code(s): J90 - PLEURAL EFFUSION, NOT ELSEWHERE CLASSIFIED Status: Acute (10) Transaminitis Code(s): R74.0 - NONSPEC ELEV OF LEVELS OF TRANSAMNS & LACTIC ACID DEHYDRGNSE Status: Acute (11) UTI (urinary tract infection) Status: Acute (12) Hypoglycemia Code(s): E16.2 - HYPOGLYCEMIA, UNSPECIFIED Status: Acute (13) Status epilepticus Code(s): G40.901 - EPILEPSY, UNSP, NOT INTRACTABLE, WITH STATUS EPILEPTICUS Status: Acute (14) Hypernatremia Code(s): E87.0 - HYPEROSMOLALITY AND HYPERNATREMIA Status: Acute (15) Hypomagnesemia Code(s): E83.42 - HYPOMAGNESEMIA Status: Acute (16) Hypophosphatemia Code(s): E83.39 - OTHER DISORDERS OF PHOSPHORUS METABOLISM Status: Acute - Plan cont current plan of care * vent as per pulmonary * today CT brain * continue keppra * replace magnesium sulfate, replace potassium phosphate * medication reviewed as below * symptomatic treatment * prognosis is very poor. Review of Systems - Review of Systems Other: unable to review due to intubated status - Medications/Allergies Allergies/Adverse Reactions: Allergies Allergy/AdvReac Type Severity Reaction Status Date / Time amoxicillin [From Augmentin] Allergy Diarrhea Verified 01/24/18 12:57 clavulanic acid Allergy Diarrhea Verified 01/24/18 12:57 [From Augmentin] clindamycin Allergy diarrhea/di Verified 01/24/18 12:57 zziness shrimp Allergy Anaphylaxis Verified 01/24/18 12:57 Sulfa (Sulfonamide Allergy Rash Verified 01/24/18 12:57 Antibiotics) Medications: Current Medications Acetaminophen (Tylenol) 650 mg PO Q4H PRN PRN Reason: Headache/Fever or Pain Last Admin: 08/20/18 04:40 Dose: 650 mg Albuterol Sulfate (Albuterol Sulfate) 1.25 mg NEB Q4H PRN PRN Reason: Wheezing Albuterol/Ipratropium (Duoneb) 3 ml NEB [id number] [facility] Last Admin: 08/22/18 10:13 Dose: 3 ml Artificial Tears (Tears Naturale) 0 drop EA EYE PRN PRN PRN Reason: Dry Eyes Bisacodyl (Dulcolax) 10 mg AL DAILYPRN PRN PRN Reason: Constipation Dextrose/Water (Dextrose 50%) 25 gm IVP PRN PRN PRN Reason: HYPOGLYCEMIA PROTOCOL Enoxaparin Sodium (Lovenox) 40 mg SC 0900 [facility] Last Admin: 08/22/18 08:13 Dose: 40 mg Famotidine (Pepcid) 20 mg SLOW IVP DAILY [facility] Last Admin: 08/22/18 08:13 Dose: 20 mg Glucagon (Glucagon) 1 mg IM PRN PRN PRN Reason: HYPOGLYCEMIA PROTOCOL Hydralazine HCl (Apresoline) 10 mg SLOW IVP Q4H PRN PRN Reason: Systolic BP > 180 Fentanyl Citrate 2,000 mcg/ (Sodium Chloride) 100 mls @ 0 mls/hr IV INF [facility]; Protocol Stop: 09/17/18 21:52 Last Admin: 08/19/18 18:09 Dose: 100 mls Fentanyl Citrate (Fentanyl Bolus) 250 mls @ 0 mls/hr IVPB PRN PRN PRN Reason: Breakthrough pain/agitation Stop: 09/17/18 23:15 Dextrose/Water (D5w) 1,000 mls @ 0 mls/hr IV INF PRN PRN Reason: HYPOGLYCEMIA PROTOCOL Levetiracetam 1,500 mg/ Device 100 mls @ 200 mls/hr IVPB BID [facility] Last Admin: 08/22/18 08:09 Dose: 100 mls Potassium Chloride/Dextrose/Sod Cl (D5 1/2 Ns W/20 Meq Kcl) 1,000 mls @ 100 mls /hr IV .Q10H [facility] Last Admin: 08/22/18 05:05 Dose: 1,000 mls Potassium Phosphate 30 mmol/ (Sodium Chloride) 260 mls @ 42.466 mls/hr IVPB NOW [facility] Stop: 08/22/18 12:00 Last Admin: 08/22/18 08:13 Dose: 260 mls Lorazepam (Ativan) 2 mg SLOW IVP Q1H PRN PRN Reason: Breakthrough agitation Stop: 09/17/18 23:15 Last Admin: 08/22/18 03:26 Dose: 2 mg Mineral Oil/White Petrolatum (Eucerin Cream) 0 gm TOP BIDPRN PRN PRN Reason: Dry Skin Morphine Sulfate (Morphine Sulfate) 2 mg SLOW IVP Q1H PRN PRN Reason: BREAKTHROUGH PAIN/AGITATION Stop: 09/17/18 23:15 Ondansetron HCl (Zofran) 4 mg IVP Q6H PRN PRN Reason: Nausea/Vomiting Propofol (Diprivan) 1,000 mg IV INF PRN; Protocol PRN Reason: TO ACHIEVE GOAL RASS Stop: 09/17/18 23:15 Last Admin: 08/22/18 08:21 Dose: 1,000 mg Propofol (Diprivan Bolus) 20 mg IV Q5MIN PRN PRN Reason: BREAKTHROUGH AGITATION Stop: 09/17/18 23:15 Sodium Chloride (Flush - Normal Saline) 10 ml IVF Q12HR [facility] Last Admin: 08/22/18 08:21 Dose: 10 ml Sodium Chloride (Flush - Normal Saline) 10 ml IVF PRN PRN PRN Reason: Saline Flush
[2018-08-23] MEDS: Propofol 1,000 MG/100 ML VIAL IV PRN ×2 (01:05→11:09)
[2018-08-23] MEDS: Lorazepam 2 MG/ML VIAL SLOW IVP PRN ×4 (01:05→18:32)
[2018-08-23] MEDS: D5 1/2 NS w/20 mEq KCL 1,000 ML IV SCH ×2 (02:26→09:55)
[2018-08-23 04:29] LABS: #Basophils 0.1 thou/uL (0.0-0.2); #Eosinphils 0.1 thou/uL (0.0-0.7); #Lymphocytes 2.7 thou/uL (1.20-3.40); #Neutrophils 7.3 thou/uL (1.40-6.50); %Basophils 0.5 % (0.0-1.0); %Eosinophils 1.1 % (0.0-10.0); %Lymphocytes 24.1 % (21.0-51.0); %Monocytes 8.9 % (0.0-10.0); %Neutrophils 65.4 % (42.0-75.0); Hemoglobin 11.8 g/dL (12.0-16.0); Mean Corpuscular HGB CONC 31.5 g/dL (32.0-36.0); Mean Corpuscular Volume 98.5 fL (78.0-98.0); Mean Platelet Volume 10.6 fL (7.4-10.4); Platelet Count 203 thou/uL (130-400); RBC Distribution Width 13.1 % (11.5-14.5); Red Blood Cell (RBC) Count 3.82 mill/uL (4.20-5.40); White Blood Cell (WBC) Count 11.1 thou/uL (4.8-10.8)
[2018-08-23 05:08] LABS: ALT (SGPT) 25 U/L (8-55); AST (SGOT) 117 U/L (5-34); Albumin 2.6 g/dL (3.4-4.8); Alkaline Phosphatase 147 U/L (40-150); Anion Gap 12 mmol/L (10-20); BUN (Urea Nitrogen) 12 mg/dL (9.8-20.1); Calc. Creatinine Clearance 125 mL/min (70-130); Calcium 8.7 mg/dL (7.8-10.44); Carbon Dioxide 27 mmol/L (23-31); Chloride 118 mmol/L (98-107); Estimated GFR-MDRD 78; Globulin 4.1 g/dL (2.4-3.5); Glucose 95 mg/dL (80-115); Protein, Total 6.7 g/dL (6.0-8.3); Sodium 154 mmol/L (136-145)
[2018-08-23 05:11] LABS: Potassium 2.6 mmol/L (3.5-5.1)
[2018-08-23] MEDS ORDERED: Magnesium Oxide 400 MG TAB PO PRN ×2 (05:33)
[2018-08-23] MEDS ORDERED: Potassium Chloride 20 MEQ TAB PO PRN (05:33)
[2018-08-23] MEDS ORDERED: Potassium Phosphate 15 MMOL in Sodium Chloride 0.9% 250 ML 250 ML IV PRN (05:33)
[2018-08-23] MEDS ORDERED: Magnesium 2 GM/NS 0.9% 100 ML 2 GM in Premix Bag 1 BAG IVPB PRN (05:33)
[2018-08-23] MEDS ORDERED: CCU ELECTROLYTE REPLACEMENT PROTOCOL FS PRN (05:33)
[2018-08-23] MEDS ORDERED: Potassium Phosphate 12 MMOL in Sodium Chloride 0.9% 250 ML 250 ML IV PRN (05:33)
[2018-08-23] MEDS ORDERED: Potassium Phosphate 9 MMOL in Sodium Chloride 0.9% 100 ML IVPB PRN (05:33)
[2018-08-23] MEDS: Potassium Chloride 40 MEQ in Premix Bag 1 BAG IVPB PRN ×3 (06:21→19:34)
[2018-08-23 07:31] LABS: Actual Bicarbonate (HCO3a) 24.1 mEq/L (22-28); Base Excess (BEa) 0.6 mEq/L (-2.0 to +3.0); CO2 Tension 34.8 mmHg (35.0-45.0); Calcium, Ionized 1.13 mmol/L (1.12-1.30); Carboxyhemoglobin (COHb) 0.8 gm% (0.0-3.0); Hemoglobin (Hb) 12.8 g/dL (12.0-16.0); O2 Tension (PaO2) 65.6 mmHg (> 80.0); Potassium - ABG Lab 2.92 mmol/L (3.70-5.30); pH, Arterial 7.46 (7.35-7.45)
[2018-08-23 07:36] LABS: Puncture Site L.R.
--- NOTE | 2018-08-23 09:23 | EEG ---
Referring Physician: DR. OVIEDO EEG # [id number] TEST TYPE: ROUTINE PORTABLE INPATIENT REPORT: AN EEG USING THE INTERNATIONAL TEN-TWENTY SYSTEM OF ELECTRODE PLACEMENT WAS PERFORMED. The background activity is a mixed frequency slowing. The patient occasionally gets to 8 hertz alpha frequency, but the majority of the study there is diffuse symmetric slowing. No epileptiform features were present. Photic stimulation was unremarkable. IMPRESSION: THIS IS AN ABNORMAL STUDY FOR THE FINDINGS OF MIXED FREQUENCY SLOWING WITHOUT EVIDENCE OF EPILEPTIFORM ACTIVITY ASSOCIATED WITH HER MOVEMENTS. Executive Administrative Asst: DIMITRY Awning Craftsperson: EEG.KATHERINE GARCÍA
[2018-08-23] MEDS: Famotidine/PF 20 mg/2ml Vial SLOW IVP SCH (09:54)
[2018-08-23] MEDS: Enoxaparin Sodium 40 MG/0.4 ML SYRINGE SC SCH (09:54)
[2018-08-23] MEDS: levETIRAcetam In NaCl (Iso-Os) 1,500 MG in Premix Bag 1 BAG IVPB SCH ×2 (09:54→20:21)
[2018-08-23 12:06] LABS: Potassium 2.8 mmol/L (3.5-5.1)
--- NOTE | 2018-08-23 16:33 | PRG ---
DATE OF SERVICE: 08/23/2018 SUBJECTIVE: Gabrielle Corcoran had an EEG which had showed slowing. Her hemodynamics have been stable. Sh radha did not have any seizure activity on the EEG. She is not clinically showing any signs of seizures regularly now. OBJECTIVE: VITAL SIGNS: She is afebrile, heart rate 80, blood pressure 123/84. LUNGS: Clear. HEART: Regular rhythm. ABDOMEN: Soft. EXTREMITIES: Without clubbing, cyanosis, or edema. Intake and output is positive 1487. LABORATORY: White count 11.1, hemoglobin 11.8, platelets 203,000. Sodium 154, potassium 2.6, chlori de 118, bicarb 27, BUN 12, creatinine 0.89. A pH 7.6, CO2 34, PO2 of 65. IMPRESSION: Respiratory failure secondary to seizures associated metastatic breast cancer. PLAN: Continue slow weaning as tolerated. He had an improvement of her mental status will matt larson. I would not recommend proceeding to tracheostomy if she fails to awaken, it is unclear whether or not she will awaken at this point. She certainly could have been significantly hypoxemic at home. Critical care time 30 minutes.
[2018-08-23] MEDS: D5 1/4 NS 1,000 ML IV SCH (16:41)
--- NOTE | 2018-08-23 18:46 | PDOC.PN ---
- Subjective Encounter Start Date: 08/23/18 Encounter Start Time: 18:35 Subjective: f/u for acute resp failure, encephalopathy and likely anoxic brain injury -: on current [facility] ventilation. No response or seizures per nursing. - Objective Resuscitation Status: Resuscitation Status FULL:Full Resuscitation MAR Reviewed: Yes Vital Signs & Weight: Vital Signs (12 hours) Temp Pulse Resp BP Pulse Ox 08/23/18 18:00 30 H 08/23/18 16:00 22 H 08/23/18 15:00 99.0 F 08/23/18 14:49 80 123/84 08/23/18 14:47 79 31 H 99 08/23/18 14:00 29 H 08/23/18 12:00 23 H 08/23/18 11:00 98.7 F 08/23/18 10:42 65 127/62 08/23/18 10:41 66 26 H 98 08/23/18 10:00 30 H 08/23/18 08:00 26 H 98 08/23/18 07:21 79 99/57 L 08/23/18 07:06 73 26 H 99 08/23/18 07:00 98.3 F Weight Admit Weight 256 lb Weight 263 lb 7.238 oz Most Recent Monitor Data Heart Rate from ECG 63 NIBP 100/51 NIBP BP-Mean 67 Respiration from ECG 25 SpO2 100 I&O: 08/22/18 08/23/18 08/24/18 06:59 06:59 06:59 Intake Total 3459 3412 1503 Output Total 3575 1925 995 Balance -116 1487 508 Result Diagrams: 08/23/18 04:00 08/23/18 11:37 Additional Labs: Microbiology 08/18/18 23:03 Central Line - Left Subclavian Vein Blood Culture - Final Bacillus species,NOT anthracis Coagulase Neg Staphylococcus 08/18/18 21:41 Urine vaughn catheter Urine Culture - Final NO GROWTH AT 36 HOURS 08/18/18 23:22 Central Line - Left Subclavian Vein Blood Culture - Preliminary NO GROWTH AT 48 HOURS Laboratory Tests 08/21/18 08/21/18 08/22/18 08:13 08:13 04:25 WBC 12.2 H Sodium 152 H 153 H Potassium 2.5 L* 2.5 L* 08/22/18 08/23/18 04:25 04:00 WBC 11.4 H Sodium Potassium 2.6 L* Radiology Reviewed by me: Yes (CT brain - osseous metastatic process, no acute intracranial process) EKG Reviewed by me: Yes (Tele - SR) Phys Exam - Physical Examination sedate, no response to stimuli HEENT: sclera anicteric, oral pharynx no lesions Neck: no JVD, supple, full ROM Respiratory: no wheezing, no rales, no rhonchi, clear to auscultation bilateral S1, S2 Cardiovascular: RRR, no significant murmur, no rub, gallop Gastrointestinal: soft, non-tender, no distention, positive bowel sounds Musculoskeletal: pulses present, edema present no response to stimuli Deviation from normal: L breast with hardened mass, hyperpigmentation consistent with malignancy Skin: normal turgor, cap refill <2 seconds Dx/Plan (1) Anoxic brain injury Status: Acute Comment: Likely after prolonged seizure activity, Palliative care consult, consider cerebral perfusion study (2) Acute metabolic encephalopathy Code(s): G93.41 - METABOLIC ENCEPHALOPATHY Status: Acute Comment: Persistent secondary to #1, supportive mgmt (3) Acute respiratory failure with hypoxia Code(s): J96.01 - ACUTE RESPIRATORY FAILURE WITH HYPOXIA Status: Acute Comment: Continue NIMV, not weanable (4) Hypokalemia Code(s): E87.6 - HYPOKALEMIA Status: Acute Comment: KCL replacment per CCU protocol (5) Left breast mass Code(s): N63.20 - UNSPECIFIED LUMP IN THE LEFT BREAST, UNSPECIFIED QUADRANT Status: Acute Comment: Likely malignant breast cancer, pt does not want any treatment per family report (6) Osseous metastasis Code(s): C79.51 - SECONDARY MALIGNANT NEOPLASM OF BONE Status: Acute (7) Status epilepticus Code(s): G40.901 - EPILEPSY, UNSP, NOT INTRACTABLE, WITH STATUS EPILEPTICUS Status: Acute Comment: Keppra 1500mg IV BID - Plan social services counselor, respiratory therapy, DVT proph w/SCDs Continue critical support -: Palliative care consult in am -: Electrolyte replacement protocol -: Mag Sulfate 2gm IV x 1 today -: Consider cerebral perfusion study * AM lab: CMP, CBC, Mg++
[2018-08-23] MEDS ORDERED: Magnesium 2 GM/50 ML 2 GM in Premix Bag 1 BAG IVPB SCH (19:00)
[2018-08-23 19:15] LABS: Potassium 3.1 mmol/L (3.5-5.1)
--- NOTE | 2018-08-24 03:24 | PRG ---
NEUROLOGY FOLLOWUP NOTE Ms. Corcoran remains on IV sedation and ventilatory support. No witnessed seizure-like movements have be en seen in the last 24 hours. Her EEG revealed some diffuse slowing in the theta range. Her repeat CT scan of the brain did not show any interval change compared to her prior study. Vital signs have been fairly stable, but a bit hypotensive. Her sedation has been changed. relatively mild slowing that she would appear so sedated given the lack of ongoing seizure acti vity and other structural anomalies seen on CT, I would remain optimistic as far as her prognosis fro m a neurologic recovery. Continue her current Keppra dosing and follow in her care.
[2018-08-24] MEDS: D5 1/4 NS 1,000 ML IV SCH ×2 (04:58→17:40)
[2018-08-24 05:27] LABS: ALT (SGPT) 22 U/L (8-55); AST (SGOT) 100 U/L (5-34); Albumin 2.6 g/dL (3.4-4.8); Alkaline Phosphatase 143 U/L (40-150); Anion Gap 10 mmol/L (10-20); BUN (Urea Nitrogen) 11 mg/dL (9.8-20.1); Bilirubin, Total 1.4 mg/dL (0.2-1.2); Calc. Creatinine Clearance 138 mL/min (70-130); Calcium 8.4 mg/dL (7.8-10.44); Carbon Dioxide 26 mmol/L (23-31); Chloride 118 mmol/L (98-107); Estimated GFR-MDRD 87; Globulin 4.1 g/dL (2.4-3.5); Glucose 110 mg/dL (80-115); Magnesium 1.9 mg/dL (1.6-2.6); Potassium 3.2 mmol/L (3.5-5.1); Protein, Total 6.7 g/dL (6.0-8.3); Sodium 151 mmol/L (136-145)
[2018-08-24 05:33] LABS: #Eosinphils 0.1 thou/uL (0.0-0.7); #Lymphocytes 2.2 thou/uL (1.20-3.40); #Monocytes 0.9 thou/uL (0.11-0.59); %Basophils 0.5 % (0.0-1.0); %Eosinophils 1.3 % (0.0-10.0); %Lymphocytes 23.3 % (21.0-51.0); %Monocytes 9.9 % (0.0-10.0); %Neutrophils 65.1 % (42.0-75.0); Hemoglobin 11.9 g/dL (12.0-16.0); Mean Corpuscular HGB CONC 31.5 g/dL (32.0-36.0); Mean Corpuscular Hemoglobin 30.9 pg (27.0-31.0); Mean Platelet Volume 10.4 fL (7.4-10.4); Platelet Count 220 thou/uL (130-400); Red Blood Cell (RBC) Count 3.85 mill/uL (4.20-5.40); White Blood Cell (WBC) Count 9.2 thou/uL (4.8-10.8)
[2018-08-24] MEDS: Potassium Chloride 40 MEQ in Premix Bag 1 BAG IVPB PRN (05:45)
[2018-08-24 08:03] LABS: Actual Bicarbonate (HCO3a) 24.9 mEq/L (22-28); Base Excess (BEa) 1.7 mEq/L (-2.0 to +3.0); CO2 Tension 34.4 mmHg (35.0-45.0); Carboxyhemoglobin (COHb) 0.7 gm% (0.0-3.0); Hemoglobin (Hb) 12.9 g/dL (12.0-16.0); O2 Tension (PaO2) 77.8 mmHg (> 80.0); Potassium - ABG Lab 3.58 mmol/L (3.70-5.30); pH, Arterial 7.48 (7.35-7.45)
[2018-08-24 08:05] LABS: Puncture Site L.R.
[2018-08-24] MEDS: levETIRAcetam In NaCl (Iso-Os) 1,500 MG in Premix Bag 1 BAG IVPB SCH ×2 (08:32→19:59)
[2018-08-24] MEDS: Famotidine/PF 20 mg/2ml Vial SLOW IVP SCH (08:43)
[2018-08-24] MEDS: Enoxaparin Sodium 40 MG/0.4 ML SYRINGE SC SCH (08:43)
[2018-08-24] MEDS: Lorazepam 2 MG/ML VIAL SLOW IVP PRN (09:17)
--- NOTE | 2018-08-24 18:49 | PRG ---
DATE OF SERVICE: 08/24/2018 SUBJECTIVE: Ms. Corcoran really is not waking up. She has lower extremity twitching motions. She was doing this when she had her EEG and there were no epileptiform discharges to consider this seizure activity. SUBJECTIVE: VITAL SIGNS: Heart rates in the 50s, blood pressure 111/62, respiratory rates in the 20s. LUNGS: Unchanged. HEART: Unchanged. ABDOMEN: Unchanged. Intake and output is positive 896. LABORATORY DATA: White count 9.2, hemoglobin 11.9, platelets 220. Sodium 151, potassium 3.2, chlori de 118, bicarb 26, BUN 11, creatinine 0.8. IMPRESSION: 1. Respiratory failure associated with status epilepticus, felt to be associated with meningeal invo lvement of her malignancy. 2. Mild hyperchloremia. 3. Possible anoxic injury versus persistent encephalopathy secondary to status epilepticus. It was quite prolonged. PLAN: Continue current care. I would like to meet with family next time they are here and discuss w ithdrawal of care. She clearly did not want to address the breast issue when she was cognizant and h as told family that she did not want treatment, so there is really no reason that if she does not wak e up to continue with ongoing aggressive care. We at a minimum need to set time boundaries regarding how long we are going to wait to see if she wakes up. It is unfortunate though that she has a very advanced malignant process and we probably will not give her much quality of life even if she were to wake up tomorrow and be safely extubated. Critical care time was 30 minutes.
--- NOTE | 2018-08-24 21:23 | PDOC.PN ---
- Subjective Encounter Start Date: 08/24/18 Encounter Start Time: 17:00 Subjective: f/u for persistent encephalopathy, resp failure s/p prolonged seizure -: with likely anoxic brain injury. Occasional foot twitches per nursing. - Objective Resuscitation Status: Resuscitation Status FULL:Full Resuscitation MAR Reviewed: Yes Vital Signs & Weight: Vital Signs (12 hours) Temp Pulse Resp BP Pulse Ox 08/24/18 20:00 24 H 08/24/18 19:03 57 L 26 H 99 08/24/18 19:00 97.7 F 08/24/18 17:43 27 H 08/24/18 16:00 22 H 08/24/18 15:24 56 L 111/62 08/24/18 15:23 56 L 26 H 100 08/24/18 14:51 98.4 F 08/24/18 14:00 26 H 08/24/18 12:00 22 H 08/24/18 11:00 98.8 F 08/24/18 10:43 60 114/58 L 08/24/18 10:41 60 29 H 99 08/24/18 10:00 24 H Weight Admit Weight 256 lb Weight 263 lb 14.293 oz Most Recent Monitor Data Heart Rate from ECG 59 NIBP 120/65 NIBP BP-Mean 83 Respiration from ECG 24 SpO2 100 I&O: 08/23/18 08/24/18 08/25/18 06:59 06:59 06:59 Intake Total 3412 2726 1230 Output Total 1925 1830 1180 Balance 1487 896 50 Result Diagrams: 08/24/18 05:00 08/24/18 05:00 Additional Labs: Microbiology 08/18/18 23:03 Central Line - Left Subclavian Vein Blood Culture - Final Bacillus species,NOT anthracis Coagulase Neg Staphylococcus 08/18/18 21:41 Urine vaughn catheter Urine Culture - Final NO GROWTH AT 36 HOURS 08/18/18 23:22 Central Line - Left Subclavian Vein Blood Culture - Preliminary NO GROWTH AT 48 HOURS Laboratory Tests 08/21/18 08/21/18 08/22/18 08:13 08:13 04:25 WBC 12.2 H Sodium 152 H 153 H Potassium 2.5 L* 2.5 L* 08/22/18 08/23/18 04:25 04:00 WBC 11.4 H Sodium Potassium 2.6 L* EKG Reviewed by me: Yes (Tele - SR) Phys Exam - Physical Examination sedate, minimal corneal reflex, mech vent, ETT in place HEENT: sclera anicteric, oral pharynx no lesions Neck: no nodes, no JVD, supple, full ROM Respiratory: no wheezing, no rales, no rhonchi, clear to auscultation bilateral S1, S2 Cardiovascular: RRR, no significant murmur, no rub, gallop Gastrointestinal: no distention, positive bowel sounds Musculoskeletal: pulses present, edema present no response to stimuli Skin: normal turgor, cap refill <2 seconds Deviation from normal: Vaughn with tea-colored urine Dx/Plan (1) Anoxic brain injury Status: Acute Comment: Likely after prolonged seizure activity, Palliative care consult, consider cerebral perfusion study, poor prognosis (2) Acute metabolic encephalopathy Code(s): G93.41 - METABOLIC ENCEPHALOPATHY Status: Acute Comment: Persistent secondary to #1, supportive mgmt (3) Acute respiratory failure with hypoxia Code(s): J96.01 - ACUTE RESPIRATORY FAILURE WITH HYPOXIA Status: Acute Comment: Continue NIMV, not weanable (4) Hypokalemia Code(s): E87.6 - HYPOKALEMIA Status: Acute Comment: KCL replacment per CCU protocol (5) Left breast mass Code(s): N63.20 - UNSPECIFIED LUMP IN THE LEFT BREAST, UNSPECIFIED QUADRANT Status: Acute Comment: Likely malignant breast cancer, pt does not want any treatment per family report (6) Osseous metastasis Code(s): C79.51 - SECONDARY MALIGNANT NEOPLASM OF BONE Status: Acute (7) Status epilepticus Code(s): G40.901 - EPILEPSY, UNSP, NOT INTRACTABLE, WITH STATUS EPILEPTICUS Status: Acute Comment: Keppra 1500mg IV BID - Plan continue antibiotics, social media sr strategy manager, respiratory therapy, DVT proph w/SCDs Continue critical support -: Palliative care and hospice consideration -: Continue Pulmonary support -: Continue Keppra 1500mg IV BID -: AM lab: CMP, CBC * Poor prognosis
[2018-08-25 05:38] LABS: ALT (SGPT) 28 U/L (8-55); AST (SGOT) 91 U/L (5-34); Albumin 2.9 g/dL (3.4-4.8); Alkaline Phosphatase 155 U/L (40-150); Anion Gap 12 mmol/L (10-20); BUN (Urea Nitrogen) 12 mg/dL (9.8-20.1); Bilirubin, Total 1.8 mg/dL (0.2-1.2); Calc. Creatinine Clearance 146 mL/min (70-130); Calcium 8.4 mg/dL (7.8-10.44); Carbon Dioxide 25 mmol/L (23-31); Chloride 114 mmol/L (98-107); Estimated GFR-MDRD Greater than 90; Globulin 4.5 g/dL (2.4-3.5); Glucose 101 mg/dL (80-115); Potassium 3.3 mmol/L (3.5-5.1); Protein, Total 7.4 g/dL (6.0-8.3); Sodium 148 mmol/L (136-145)
[2018-08-25 05:39] LABS: #Basophils 0.1 thou/uL (0.0-0.2); #Eosinphils 0.1 thou/uL (0.0-0.7); #Lymphocytes 2.7 thou/uL (1.20-3.40); #Monocytes 0.8 thou/uL (0.11-0.59); #Neutrophils 6.2 thou/uL (1.40-6.50); %Basophils 0.8 % (0.0-1.0); %Eosinophils 1.5 % (0.0-10.0); %Lymphocytes 26.9 % (21.0-51.0); %Monocytes 7.9 % (0.0-10.0); %Neutrophils 62.9 % (42.0-75.0); Band 7 % (5-11); Hemoglobin 12.7 g/dL (12.0-16.0); Lymphocytes 37 % (21-51); MDiff Complete? YES; Mean Corpuscular HGB CONC 30.6 g/dL (32.0-36.0); Mean Corpuscular Hemoglobin 29.8 pg (27.0-31.0); Mean Corpuscular Volume 97.4 fL (78.0-98.0); Mean Platelet Volume 9.8 fL (7.4-10.4); Monocytes 7 % (0-10); Neutrophil 49 % (42-75); PLT Morphology Comment Appears Adequate; Platelet Count 253 thou/uL (130-400); RBC Distribution Width 13.2 % (11.5-14.5); Red Blood Cell (RBC) Count 4.26 mill/uL (4.20-5.40); White Blood Cell (WBC) Count 10.6 thou/uL (4.8-10.8)
[2018-08-25] MEDS: Potassium Chloride 40 MEQ in Premix Bag 1 BAG IVPB PRN (06:23)
[2018-08-25 07:18] LABS: ALV-art Gradient 158.225 (0-20); Actual Bicarbonate (HCO3a) 24.8 mEq/L (22-28); Base Excess (BEa) 0.5 mEq/L (-2.0 to +3.0); CO2 Tension 38.7 mmHg (35.0-45.0); Calcium, Ionized 1.11 mmol/L (1.12-1.30); Carboxyhemoglobin (COHb) 0.9 gm% (0.0-3.0); Hemoglobin (Hb) 14.1 g/dL (12.0-16.0); O2 Tension (PaO2) 78.6 mmHg (> 80.0); Potassium - ABG Lab 3.84 mmol/L (3.70-5.30); Puncture Site RRA; pH, Arterial 7.42 (7.35-7.45)
[2018-08-25] MEDS: Lorazepam 2 MG/ML VIAL SLOW IVP PRN ×4 (07:24→22:25)
[2018-08-25] MEDS: levETIRAcetam In NaCl (Iso-Os) 1,500 MG in Premix Bag 1 BAG IVPB SCH ×2 (08:57→19:59)
[2018-08-25] MEDS: Famotidine/PF 20 mg/2ml Vial SLOW IVP SCH (08:58)
[2018-08-25] MEDS: Enoxaparin Sodium 40 MG/0.4 ML SYRINGE SC SCH (08:58)
[2018-08-25] MEDS: D5 1/4 NS 1,000 ML IV SCH ×2 (08:58→19:56)
[2018-08-25] MEDS: Morphine 2 MG/ML SYRINGE SLOW IVP PRN (18:46)
--- NOTE | 2018-08-25 20:15 | PDOC.PN ---
- Subjective Encounter Start Date: 08/25/18 Encounter Start Time: 15:25 Subjective: f/u for anoxic brain injury, resp failure [facility] ventilation. Minimally -: responsive per family. Consideration for palliative measures given -: clinical situation. - Objective Resuscitation Status: Resuscitation Status FULL:Full Resuscitation MAR Reviewed: Yes Vital Signs & Weight: Vital Signs (12 hours) Temp Pulse Resp BP Pulse Ox 08/25/18 20:00 99.0 F 28 H 08/25/18 18:38 64 30 H 98 08/25/18 18:00 31 H 08/25/18 15:45 98.6 F 25 H 08/25/18 14:31 63 106/53 L 08/25/18 14:00 33 H 08/25/18 13:00 98.3 F 08/25/18 11:54 34 H 08/25/18 10:46 61 111/57 L 08/25/18 09:49 27 H 08/25/18 09:22 69 Weight Admit Weight 256 lb Weight 268 lb 4.841 oz Most Recent Monitor Data Heart Rate from ECG 66 NIBP 120/75 NIBP BP-Mean 90 Respiration from ECG 34 SpO2 97 I&O: 08/24/18 08/25/18 08/26/18 06:59 06:59 06:59 Intake Total 2726 2601 1426 Output Total 1830 1880 703 Balance 896 721 723 Result Diagrams: 08/25/18 04:28 08/25/18 04:28 Additional Labs: Microbiology 08/18/18 23:03 Central Line - Left Subclavian Vein Blood Culture - Final Bacillus species,NOT anthracis Coagulase Neg Staphylococcus 08/18/18 21:41 Urine vaughn catheter Urine Culture - Final NO GROWTH AT 36 HOURS 08/18/18 23:22 Central Line - Left Subclavian Vein Blood Culture - Preliminary NO GROWTH AT 48 HOURS Laboratory Tests 08/21/18 08/21/18 08/22/18 08:13 08:13 04:25 WBC 12.2 H Sodium 152 H 153 H Potassium 2.5 L* 2.5 L* 08/22/18 08/23/18 04:25 04:00 WBC 11.4 H Sodium Potassium 2.6 L* EKG Reviewed by me: Yes (Tele - SR) Phys Exam - Physical Examination sedate, unresponsive pupils minimally responsive, ETT in place HEENT: sclera anicteric, oral pharynx no lesions Neck: no nodes, no JVD, supple, full ROM Respiratory: no wheezing, no rales, no rhonchi, clear to auscultation bilateral S1, S2 Cardiovascular: RRR, no significant murmur, no rub, gallop Gastrointestinal: soft, no distention, positive bowel sounds Musculoskeletal: pulses present, edema present minimal corneal reflex Skin: normal turgor, cap refill <2 seconds Dx/Plan (1) Anoxic brain injury Status: Acute Comment: Likely after prolonged seizure activity, Palliative care consult, consider cerebral perfusion study, poor prognosis, Palliative measures considered in next 72h (2) Acute metabolic encephalopathy Code(s): G93.41 - METABOLIC ENCEPHALOPATHY Status: Acute Comment: Persistent secondary to #1, supportive mgmt (3) Acute respiratory failure with hypoxia Code(s): J96.01 - ACUTE RESPIRATORY FAILURE WITH HYPOXIA Status: Acute Comment: Continue NIMV, not weanable (4) Hypokalemia Code(s): E87.6 - HYPOKALEMIA Status: Acute Comment: KCL replacment per CCU protocol (5) Left breast mass Code(s): N63.20 - UNSPECIFIED LUMP IN THE LEFT BREAST, UNSPECIFIED QUADRANT Status: Acute Comment: Likely malignant breast cancer, pt does not want any treatment per family report (6) Osseous metastasis Code(s): C79.51 - SECONDARY MALIGNANT NEOPLASM OF BONE Status: Acute (7) Status epilepticus Code(s): G40.901 - EPILEPSY, UNSP, NOT INTRACTABLE, WITH STATUS EPILEPTICUS Status: Acute Comment: Keppra 1500mg IV BID - Plan plan discussed w/ family, high school social science teacher, respiratory therapy, DVT proph w/SCDs Continue critical support -: Mech ventilation with SIMV, not weanable -: Continue Keppra 1500mg IV BID -: Continue IVF's D5 1/4NS @75ml/h -: AM lab: BMP, CBC, ABG * .
--- NOTE | 2018-08-26 00:29 | PRG ---
DATE OF SERVICE: 08/25/2018 SUBJECTIVE: Ms. Corcoran opens her eyes for me this morning but would not localize to me even with painful stimuli. She would not follow commands. OBJECTIVE: VITAL SIGNS: She is afebrile, respiratory rate is 28, heart rates in the 60s, blood pressure 120/75. LUNGS: Clear. HEART: Regular rhythm. ABDOMEN: Soft. EXTREMITIES: Without asymmetry. Intake and output is positive 721. LABORATORY DATA: White count 10.6, hemoglobin 12.7, platelets 253. Sodium ____ _, potassium 3.3, chloride 114, bicarbonate 25, BUN 12, creatinine 0.78, pH 7.42 , CO2 of 38, pO2 of 78. IMPRESSION: 1. Respiratory failure associated with status epilepticus. 2. Encephalopathy secondary to hypoxia or prolonged status. She is no longer seizing and has no epileptiform activity on her EEG, but just for diffuse slowing. Hopefully, we will see some neurological improvement over the weekend mainly for the family. I met with her son and her sister again both separately for about 30 minutes today. I have explained to them that if there was no family in her life. I would recommend extubating and hospice care for Ms. Corcoran realizing that she would pass away. There are really from what I can tell talking to 2 surgeons and the oncologist. There are no therapeutic options for her. They will lead to any type of quality of life. Apparently, she has had excruciating pain in her right arm and neck for quite some time and actually sought medical attention in [place]. I do not have these records, but I am guessing they told her she might have a malignant process and she did not deal with this knowing that she had a mass in her left breast. She has been totally nonfunctional according to her sister for the last 8 months, had been working for several years. I was told that she had been working for 8 months, but now I am told that she had not worked in 3 years. In any event, she will never be stable enough to walk into our wheelchair into the oncologist office for chemotherapy and at this point, it will not give her any quality of life. She has extensive bony metastatic disease and I suspect all of her upper extremity symptoms are related to that. If either way away, we will plan on extubating her for comfort care on Wednesday. I am hoping that we will see some neurological improvement, so she can interact with her son and her sister, but I doubt, we will see that. Critical care time, 30 minutes, independent of the time spent with the family in the conference. RAQUEL
[2018-08-26] MEDS: Lorazepam 2 MG/ML VIAL SLOW IVP PRN ×3 (01:50→20:46)
[2018-08-26] MEDS: Morphine 2 MG/ML SYRINGE SLOW IVP PRN ×3 (02:11→20:53)
[2018-08-26 03:31] LABS: #Basophils 0.1 thou/uL (0.0-0.2); #Eosinphils 0.1 thou/uL (0.0-0.7); #Lymphocytes 2.9 thou/uL (1.20-3.40); #Monocytes 0.8 thou/uL (0.11-0.59); #Neutrophils 7.5 thou/uL (1.40-6.50); %Basophils 0.9 % (0.0-1.0); %Eosinophils 0.7 % (0.0-10.0); %Lymphocytes 25.3 % (21.0-51.0); %Neutrophils 66.1 % (42.0-75.0); Hemoglobin 11.9 g/dL (12.0-16.0); Mean Corpuscular HGB CONC 32.1 g/dL (32.0-36.0); Mean Corpuscular Hemoglobin 31.3 pg (27.0-31.0); Mean Corpuscular Volume 97.4 fL (78.0-98.0); Mean Platelet Volume 9.3 fL (7.4-10.4); Platelet Count 234 thou/uL (130-400); RBC Distribution Width 13.1 % (11.5-14.5); Red Blood Cell (RBC) Count 3.81 mill/uL (4.20-5.40); White Blood Cell (WBC) Count 11.3 thou/uL (4.8-10.8)
[2018-08-26 03:50] LABS: ALT (SGPT) 24 U/L (8-55); AST (SGOT) 79 U/L (5-34); Albumin 2.6 g/dL (3.4-4.8); Alkaline Phosphatase 141 U/L (40-150); Anion Gap 12 mmol/L (10-20); BUN (Urea Nitrogen) 13 mg/dL (9.8-20.1); Calc. Creatinine Clearance 138 mL/min (70-130); Calcium 8.2 mg/dL (7.8-10.44); Carbon Dioxide 24 mmol/L (23-31); Chloride 116 mmol/L (98-107); Estimated GFR-MDRD 86; Globulin 4.1 g/dL (2.4-3.5); Glucose 90 mg/dL (80-115); Potassium 3.2 mmol/L (3.5-5.1); Protein, Total 6.7 g/dL (6.0-8.3); Sodium 149 mmol/L (136-145)
[2018-08-26] MEDS: Potassium Chloride 40 MEQ in Sodium Chloride 0.9% 250 ML 250 ML IVPB PRN (05:02)
[2018-08-26 06:51] LABS: Actual Bicarbonate (HCO3a) 24.8 mEq/L (22-28); Base Excess (BEa) -0.2 mEq/L (-2.0 to +3.0); CO2 Tension 41.8 mmHg (35.0-45.0); Calcium, Ionized 1.11 mmol/L (1.12-1.30); Carboxyhemoglobin (COHb) 0.7 gm% (0.0-3.0); Hemoglobin (Hb) 12.6 g/dL (12.0-16.0); O2 Tension (PaO2) 77.2 mmHg (> 80.0); Puncture Site RRA; pH, Arterial 7.39 (7.35-7.45)
[2018-08-26] MEDS: Famotidine/PF 20 mg/2ml Vial SLOW IVP SCH ×2 (08:31→20:22)
[2018-08-26] MEDS: Enoxaparin Sodium 40 MG/0.4 ML SYRINGE SC SCH (08:31)
[2018-08-26] MEDS: levETIRAcetam In NaCl (Iso-Os) 1,500 MG in Premix Bag 1 BAG IVPB SCH ×2 (08:31→20:22)
[2018-08-26] MEDS: D5 1/4 NS 1,000 ML IV SCH ×3 (08:33→16:53)
[2018-08-26] MEDS: Bacitracin Zinc 1 Packet TOP PRN (11:00)
--- NOTE | 2018-08-26 11:09 | PRG ---
DATE OF SERVICE: 08/26/2018 Ms. Corcoran has not really changed much. The plan is to leave her mechanically ventilated to see if she wakes up over the weekend. PHYSICAL EXAMINATION: VITAL SIGNS: Her blood pressure 110/59, heart rate 60, respiratory rate the 20s. LUNGS: Clear. CARDIOVASCULAR: Regular rhythm. ABDOMEN: Soft. EXTREMITIES: Without asymmetry. LABORATORY DATA: White count 11.3, hemoglobin 11.9, platelets 234. Sodium 149, potassium 3.2, chloride 116, bicarbonate 24, BUN 13, creatinine 0.82. PH 7.39, CO2 41, p O2 77. 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 PLAN: Continue supportive care through the weekend. No weaning attempts will be made this weekend u nless she wakes up completely which is unlikely. Sedative drugs need to be withheld.
[2018-08-26] MEDS ORDERED: Lorazepam 2 MG/ML VIAL ONE (16:05)
--- NOTE | 2018-08-26 21:06 | PDOC.PN ---
- Subjective Encounter Start Date: 08/26/18 Encounter Start Time: 13:00 Subjective: f/u for resp failure, seizure, anoxic brain injury. No new events noted but -: weaning off sedation. Some RLE twitching noted. - Objective Resuscitation Status: Resuscitation Status FULL:Full Resuscitation MAR Reviewed: Yes Vital Signs & Weight: Vital Signs (12 hours) Temp Pulse Resp BP Pulse Ox 08/26/18 20:00 29 H 08/26/18 19:00 99.4 F 108 H 48 H 96 08/26/18 17:45 46 H 08/26/18 15:53 98.7 F 31 H 08/26/18 15:39 76 159/80 H 08/26/18 14:36 76 159/80 H 08/26/18 14:00 34 H 08/26/18 12:00 98.9 F 23 H 08/26/18 10:51 60 110/59 L 08/26/18 10:00 24 H 08/26/18 09:15 64 118/59 L Weight Admit Weight 256 lb Weight 264 lb 5.348 oz Most Recent Monitor Data Heart Rate from ECG 93 NIBP 151/90 NIBP BP-Mean 110 Respiration from ECG 34 SpO2 97 I&O: 08/25/18 08/26/18 08/27/18 06:59 06:59 06:59 Intake Total 2601 2522 1486 Output Total 1880 1398 1015 Balance 721 1124 471 Result Diagrams: 08/26/18 03:20 08/26/18 03:20 Additional Labs: Microbiology 08/18/18 23:03 Central Line - Left Subclavian Vein Blood Culture - Final Bacillus species,NOT anthracis Coagulase Neg Staphylococcus 08/18/18 21:41 Urine vaughn catheter Urine Culture - Final NO GROWTH AT 36 HOURS 08/18/18 23:22 Central Line - Left Subclavian Vein Blood Culture - Preliminary NO GROWTH AT 48 HOURS Laboratory Tests 08/21/18 08/21/18 08/22/18 08:13 08:13 04:25 WBC 12.2 H Sodium 152 H 153 H Potassium 2.5 L* 2.5 L* 08/22/18 08/23/18 04:25 04:00 WBC 11.4 H Sodium Potassium 2.6 L* EKG Reviewed by me: Yes (Tele - SR) Phys Exam - Physical Examination sedate, minimal response to name or stimuli sluggish pupillary response, ETT in place HEENT: sclera anicteric, oral pharynx no lesions Neck: no nodes, no JVD, supple, full ROM Respiratory: no wheezing, no rales, no rhonchi, clear to auscultation bilateral S1, S2 Cardiovascular: RRR, no significant murmur, no rub, gallop Gastrointestinal: soft, no distention, positive bowel sounds Musculoskeletal: pulses present, edema present RLE intermittent tremors Skin: normal turgor, cap refill <2 seconds Deviation from normal: Vaughn with dark brown urine Dx/Plan (1) Anoxic brain injury Status: Acute Comment: Likely after prolonged seizure activity, Palliative care consult, consider cerebral perfusion study, poor prognosis, Palliative measures considered in next 72h (2) Acute metabolic encephalopathy Code(s): G93.41 - METABOLIC ENCEPHALOPATHY Status: Acute Comment: Persistent secondary to #1, supportive mgmt (3) Acute respiratory failure with hypoxia Code(s): J96.01 - ACUTE RESPIRATORY FAILURE WITH HYPOXIA Status: Acute Comment: Continue NIMV, not weanable (4) Hypokalemia Code(s): E87.6 - HYPOKALEMIA Status: Acute Comment: KCL replacment per CCU protocol (5) Left breast mass Code(s): N63.20 - UNSPECIFIED LUMP IN THE LEFT BREAST, UNSPECIFIED QUADRANT Status: Acute Comment: Likely malignant breast cancer, pt does not want any treatment per family report (6) Osseous metastasis Code(s): C79.51 - SECONDARY MALIGNANT NEOPLASM OF BONE Status: Acute (7) Status epilepticus Code(s): G40.901 - EPILEPSY, UNSP, NOT INTRACTABLE, WITH STATUS EPILEPTICUS Status: Acute Comment: Keppra 1500mg IV BID - Plan social services technician, respiratory therapy, DVT proph w/SCDs Continue critical support -: continue mech ventilation -: Limit sedatives -: Increase IVF's 125ml/h -: AM lab: CMP, CBC * Poor Prognosis
[2018-08-27] MEDS: D5 1/4 NS 1,000 ML IV SCH ×4 (01:14→15:52)
[2018-08-27] MEDS: Lorazepam 2 MG/ML VIAL SLOW IVP PRN ×4 (03:00→21:45)
[2018-08-27 04:57] LABS: #Eosinphils 0.1 thou/uL (0.0-0.7); #Lymphocytes 2.4 thou/uL (1.20-3.40); #Monocytes 0.9 thou/uL (0.11-0.59); #Neutrophils 6.5 thou/uL (1.40-6.50); %Basophils 0.3 % (0.0-1.0); %Eosinophils 0.7 % (0.0-10.0); %Monocytes 8.9 % (0.0-10.0); %Neutrophils 66.1 % (42.0-75.0); Hemoglobin 11.2 g/dL (12.0-16.0); Mean Corpuscular HGB CONC 31.5 g/dL (32.0-36.0); Mean Corpuscular Hemoglobin 30.8 pg (27.0-31.0); Mean Corpuscular Volume 97.6 fL (78.0-98.0); Mean Platelet Volume 9.6 fL (7.4-10.4); Platelet Count 245 thou/uL (130-400); RBC Distribution Width 13.3 % (11.5-14.5); Red Blood Cell (RBC) Count 3.65 mill/uL (4.20-5.40); White Blood Cell (WBC) Count 9.9 thou/uL (4.8-10.8)
[2018-08-27 04:58] LABS: ALT (SGPT) 23 U/L (8-55); AST (SGOT) 67 U/L (5-34); Albumin 2.5 g/dL (3.4-4.8); Alkaline Phosphatase 121 U/L (40-150); Anion Gap 10 mmol/L (10-20); BUN (Urea Nitrogen) 11 mg/dL (9.8-20.1); Bilirubin, Total 2.3 mg/dL (0.2-1.2); Calc. Creatinine Clearance 133 mL/min (70-130); Carbon Dioxide 26 mmol/L (23-31); Chloride 114 mmol/L (98-107); Estimated GFR-MDRD 83; Glucose 106 mg/dL (80-115); Potassium 3.2 mmol/L (3.5-5.1); Protein, Total 6.5 g/dL (6.0-8.3); Sodium 147 mmol/L (136-145)
[2018-08-27] MEDS: Morphine 2 MG/ML SYRINGE SLOW IVP PRN ×4 (05:46→21:45)
[2018-08-27] MEDS: Potassium Chloride 40 MEQ in Sodium Chloride 0.9% 250 ML 250 ML IVPB PRN (06:14)
--- NOTE | 2018-08-27 07:57 | RAD ---
CHEST 1 VIEW: HISTORY: Dyspnea. Followup. COMPARISON: 08/18/2018. FINDINGS: Cardiac silhouette remains predominantly obscured by opacity throughout the left hemithorax. Some linda ng markings remain and are unchanged. Pulmonary vasculature of the right lung remains engorged. Jany es and tubes appear unchanged in position. compliance monitor leads overlie the chest. IMPRESSION: Left pleural fluid, bilateral infiltrates, and other findings are stable. POS: MARTY
[2018-08-27 08:03] LABS: Actual Bicarbonate (HCO3a) 26.1 mEq/L (22-28); Base Excess (BEa) 1.7 mEq/L (-2.0 to +3.0); Calcium, Ionized 1.12 mmol/L (1.12-1.30); Carboxyhemoglobin (COHb) 1.1 gm% (0.0-3.0); Hemoglobin (Hb) 16.3 g/dL (12.0-16.0); O2 Tension (PaO2) 84.4 mmHg (> 80.0); Potassium - ABG Lab 3.68 mmol/L (3.70-5.30); pH, Arterial 7.43 (7.35-7.45)
[2018-08-27 08:04] LABS: Puncture Site RBA
[2018-08-27] MEDS: levETIRAcetam In NaCl (Iso-Os) 1,500 MG in Premix Bag 1 BAG IVPB SCH ×2 (08:47→21:21)
[2018-08-27] MEDS: Enoxaparin Sodium 40 MG/0.4 ML SYRINGE SC SCH (08:47)
[2018-08-27] MEDS: Famotidine/PF 20 mg/2ml Vial SLOW IVP SCH ×2 (08:47→21:21)
[2018-08-27] MEDS ORDERED: Sodium Bicarbonate Tab 325 MG TAB PER TUBE PRN (11:13)
[2018-08-27] MEDS ORDERED: Pancrelipase DR 12000 1 CAP FS PRN (11:13)
--- NOTE | 2018-08-27 12:08 | PRG ---
DATE OF SERVICE: 08/27/2018 Thirty-five minutes critical care time. SUBJECTIVE: The patient remains intubated on mechanical ventilation. She is unresponsive. Yesterda y, she was taken off sedation, but began to have severe tachycardia and she was placed back on the Pr ecedex. OBJECTIVE: VITAL SIGNS: On exam today, her temperature is 99.3 with no fever overnight, pulse is 65, blood pres sure 105/55, O2 saturation 99%. Total intake for 24 hours 3287 and output 1580. HEENT EXAM: Pupils sluggishly reactive. Sclerae anicteric. Oropharynx: ET tube in place. NECK: No JVD. CHEST: She has a rock-hard left breast mass. She has fairly clear breath sounds bilaterally. CARDIOVASCULAR: S1 and S2, regular. ABDOMEN: Soft. EXTREMITIES: No edema. LABORATORY DATA: Sodium 147, potassium 3.2, chloride 114, CO2 of 26, BUN 11, creatinine 0.8, glucose 106. White blood cell count 9.9, hematocrit 35.6, platelet count 245. PH 7.43, pCO2 of 40, pO2 of 84. Chest x-ray demonstrates opacity over the left side. Initially thought this was effusion, but t his may, in fact, be the breast mass itself. Reviewing a CT from last week, the scan does show some minimal effusion with atelectasis down in that base. ASSESSMENT: 1. Metastatic breast cancer. 2. Respiratory failure, requiring mechanical ventilation. 3. 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 PLAN: She is not weanable secondary to her mental status. I really think this is a hopeless situati on. The patient has been seen by multiple doctors. She seemed to agree with their assessment. It s ounds like the family just needs some more time.
[2018-08-27] MEDS: Bacitracin Zinc 1 Packet TOP PRN (12:34)
--- NOTE | 2018-08-27 14:53 | PDOC.PN ---
- Subjective Encounter Start Date: 08/27/18 Encounter Start Time: 14:45 Subjective: f/u for resp failure, encephalopathy, anoxic brain injury and seizure. -: Remains on mech vent with SIMV. Sedation back on. TF's initiated. - Objective Resuscitation Status: Resuscitation Status FULL:Full Resuscitation MAR Reviewed: Yes Vital Signs & Weight: Vital Signs (12 hours) Temp Pulse Resp BP Pulse Ox 08/27/18 13:54 26 H 08/27/18 12:36 61 106/59 L 08/27/18 12:35 62 25 H 99 08/27/18 12:00 99.0 F 40 H 08/27/18 10:47 99.0 F 08/27/18 09:53 25 H 08/27/18 07:46 99.3 F 28 H 08/27/18 07:45 70 141/78 H 08/27/18 07:44 72 30 H 100 08/27/18 07:31 22 H 100 08/27/18 07:00 99.3 F 08/27/18 06:00 23 H 08/27/18 04:00 99.2 F 39 H Weight Admit Weight 256 lb Weight 264 lb 5.348 oz Most Recent Monitor Data Heart Rate from ECG 67 NIBP 101/50 NIBP BP-Mean 67 Respiration from ECG 23 SpO2 98 I&O: 08/26/18 08/27/18 08/28/18 06:59 06:59 06:59 Intake Total 2522 3287 380 Output Total 1398 1580 240 Balance 1124 1707 140 Result Diagrams: 08/27/18 04:30 08/27/18 04:30 Additional Labs: Microbiology 08/18/18 23:03 Central Line - Left Subclavian Vein Blood Culture - Final Bacillus species,NOT anthracis Coagulase Neg Staphylococcus 08/18/18 21:41 Urine vaughn catheter Urine Culture - Final NO GROWTH AT 36 HOURS 08/18/18 23:22 Central Line - Left Subclavian Vein Blood Culture - Preliminary NO GROWTH AT 48 HOURS Laboratory Tests 08/21/18 08/21/18 08/22/18 08:13 08:13 04:25 WBC 12.2 H Sodium 152 H 153 H Potassium 2.5 L* 2.5 L* 08/22/18 08/23/18 04:25 04:00 WBC 11.4 H Sodium Potassium 2.6 L* Radiology Reviewed by me: Yes (PCXR - bibasilar infiltrates) EKG Reviewed by me: Yes (Tele - SR) Phys Exam - Physical Examination sedate, no response, mech ventilation, spontaneous resp ETT in place HEENT: oral pharynx no lesions Neck: no nodes, no JVD, supple, full ROM diminished in bases occasional rhonchi S1, S2 Cardiovascular: RRR, no significant murmur, no rub, gallop diminished bowel sounds Gastrointestinal: soft, no distention Musculoskeletal: pulses present, edema present Skin: normal turgor, cap refill <2 seconds Deviation from normal: Vaughn with tea-colored urine Dx/Plan (1) Anoxic brain injury Status: Acute Comment: Likely after prolonged seizure activity, Palliative care consult, consider cerebral perfusion study, poor prognosis, Palliative measures considered in next 48h (2) Acute metabolic encephalopathy Code(s): G93.41 - METABOLIC ENCEPHALOPATHY Status: Acute Comment: Persistent secondary to #1, supportive mgmt (3) Acute respiratory failure with hypoxia Code(s): J96.01 - ACUTE RESPIRATORY FAILURE WITH HYPOXIA Status: Acute Comment: Continue NIMV, not weanable (4) Hypokalemia Code(s): E87.6 - HYPOKALEMIA Status: Acute Comment: KCL replacment per CCU protocol (5) Left breast mass Code(s): N63.20 - UNSPECIFIED LUMP IN THE LEFT BREAST, UNSPECIFIED QUADRANT Status: Acute Comment: Likely malignant breast cancer, pt does not want any treatment per family report (6) Osseous metastasis Code(s): C79.51 - SECONDARY MALIGNANT NEOPLASM OF BONE Status: Acute (7) Status epilepticus Code(s): G40.901 - EPILEPSY, UNSP, NOT INTRACTABLE, WITH STATUS EPILEPTICUS Status: Acute Comment: Keppra 1500mg IV BID - Plan social media marketing specialist, respiratory therapy, DVT proph w/SCDs Continue critical support -: Not weanable -: Add Reglan 10mg IV q8h -: Nutritional support with TF's -: Continue IVF's * AM lab: CMP, CBC
[2018-08-27] MEDS: Metoclopramide HCl 10 MG/2 ML VIAL IVP SCH (15:53)
--- NOTE | 2018-08-27 17:13 | EKG ---
Test Reason : Blood Pressure : / mmHG Vent. Rate : 087 BPM Atrial Rate : 087 BPM P-R Int : 172 ms QRS Dur : 114 ms QT Int : 390 ms P-R-T Axes : 056 001 035 degrees QTc Int : 469 ms Normal sinus rhythm Cannot rule out Inferior infarct , age undetermined Cannot rule out Anterior infarct , age undetermined Abnormal ECG Confirmed by BRIT ST ([id number]), writer editor GERSON RANDALL ([id number]) on 08/27/2018 5:12:44 PM Referred By: Confirmed By:BRIT ST
[2018-08-28] MEDS: Metoclopramide HCl 10 MG/2 ML VIAL IVP SCH ×4 (00:25→23:00)
[2018-08-28] MEDS: Lorazepam 2 MG/ML VIAL SLOW IVP PRN ×5 (00:26→23:58)
[2018-08-28] MEDS: Morphine 2 MG/ML SYRINGE SLOW IVP PRN ×5 (00:26→23:57)
[2018-08-28] MEDS: D5 1/4 NS 1,000 ML IV SCH ×5 (01:38→22:19)
[2018-08-28 04:07] LABS: #Eosinphils 0.1 thou/uL (0.0-0.7); #Lymphocytes 2.5 thou/uL (1.20-3.40); #Monocytes 0.9 thou/uL (0.11-0.59); #Neutrophils 5.5 thou/uL (1.40-6.50); %Basophils 0.4 % (0.0-1.0); %Eosinophils 1.2 % (0.0-10.0); %Lymphocytes 27.6 % (21.0-51.0); %Monocytes 9.5 % (0.0-10.0); %Neutrophils 61.3 % (42.0-75.0); Hemoglobin 10.7 g/dL (12.0-16.0); Mean Corpuscular HGB CONC 32.6 g/dL (32.0-36.0); Mean Corpuscular Hemoglobin 31.6 pg (27.0-31.0); Mean Platelet Volume 9.1 fL (7.4-10.4); Platelet Count 244 thou/uL (130-400); RBC Distribution Width 13.2 % (11.5-14.5); Red Blood Cell (RBC) Count 3.38 mill/uL (4.20-5.40)
[2018-08-28 04:19] LABS: ALT (SGPT) 21 U/L (8-55); AST (SGOT) 57 U/L (5-34); Albumin 2.5 g/dL (3.4-4.8); Alkaline Phosphatase 132 U/L (40-150); Anion Gap 10 mmol/L (10-20); BUN (Urea Nitrogen) 12 mg/dL (9.8-20.1); Calc. Creatinine Clearance 135 mL/min (70-130); Calcium 7.9 mg/dL (7.8-10.44); Carbon Dioxide 24 mmol/L (23-31); Chloride 112 mmol/L (98-107); Estimated GFR-MDRD 85; Glucose 116 mg/dL (80-115); Potassium 3.3 mmol/L (3.5-5.1); Protein, Total 6.5 g/dL (6.0-8.3); Sodium 143 mmol/L (136-145)
[2018-08-28 06:41] LABS: Actual Bicarbonate (HCO3a) 22.6 mEq/L (22-28); Base Excess (BEa) -1.1 mEq/L (-2.0 to +3.0); CO2 Tension 33.2 mmHg (35.0-45.0); Calcium, Ionized 1.08 mmol/L (1.12-1.30); Carboxyhemoglobin (COHb) 0.6 gm% (0.0-3.0); Hemoglobin (Hb) 9.1 g/dL (12.0-16.0); Potassium - ABG Lab 3.42 mmol/L (3.70-5.30); pH, Arterial 7.45 (7.35-7.45)
[2018-08-28] MEDS: Acetaminophen 325 MG TAB PO PRN (07:05)
[2018-08-28] MEDS: Potassium Chloride 40 MEQ in Premix Bag 1 BAG IVPB PRN (07:06)
[2018-08-28 07:09] LABS: Puncture Site RRA
--- NOTE | 2018-08-28 07:47 | RAD ---
CHEST 1 VIEW: HISTORY: Dyspnea. Followup. COMPARISON: 08/27/2018. FINDINGS: Cardiac silhouette remains obscured by opacification throughout the left hemithorax with worsening at the upper lobe level. Pulmonary vasculature is engorged with ground-glass opacity throughout the right lung. The patient r emains rotated leftward. Lines and tubes appear unchanged in position. No evidence of pneumothorax. IMPRESSION: Further opacification of the left upper lobe. Extensive consolidation throughout the left lower lobe and pulmonary edema are otherwise stable. POS: MARTY
[2018-08-28] MEDS: levETIRAcetam In NaCl (Iso-Os) 1,500 MG in Premix Bag 1 BAG IVPB SCH ×2 (08:52→20:01)
[2018-08-28] MEDS: Famotidine/PF 20 mg/2ml Vial SLOW IVP SCH ×2 (08:53→20:00)
[2018-08-28] MEDS: Enoxaparin Sodium 40 MG/0.4 ML SYRINGE SC SCH (08:55)
[2018-08-28] MEDS ORDERED: VANCOMYCIN IVPB PRN (10:11)
--- NOTE | 2018-08-28 11:24 | PDOC.PN ---
- Subjective Encounter Start Date: 08/28/18 Encounter Start Time: 10:00 -: old records requested/rev pt is intubated, on vent, last night she had fever - Objective Resuscitation Status: Resuscitation Status FULL:Full Resuscitation MAR Reviewed: Yes Vital Signs & Weight: Vital Signs (12 hours) Temp Pulse Resp BP Pulse Ox 08/28/18 09:54 28 H 08/28/18 08:49 99.8 F H 08/28/18 07:58 33 H 08/28/18 07:54 70 108/59 L 08/28/18 07:53 71 29 H 100 08/28/18 07:36 30 H 99 08/28/18 07:00 101.9 F H 08/28/18 06:00 26 H 08/28/18 04:00 101.8 F H 27 H 08/28/18 02:40 70 28 H 99 08/28/18 02:00 27 H 08/28/18 00:00 98.3 F 26 H Weight Admit Weight 256 lb Weight 268 lb 15.423 oz Most Recent Monitor Data Heart Rate from ECG 69 NIBP 111/62 NIBP BP-Mean 78 Respiration from ECG 21 SpO2 100 I&O: 08/27/18 08/28/18 08/29/18 06:59 06:59 06:59 Intake Total 3287 4858 350 Output Total 1580 1840 205 Balance 1707 3018 145 Result Diagrams: 08/28/18 03:50 08/28/18 03:50 Radiology Reviewed by me: Yes (chest xray-left upper lobe opacification) EKG Reviewed by me: Yes (nsr) Phys Exam - Physical Examination Constitutional: NAD on vent HEENT: PERRLA, sclera anicteric Neck: no JVD, supple Respiratory: no wheezing, no rales, no rhonchi anteriorly Cardiovascular: RRR, no significant murmur, no rub Gastrointestinal: soft, positive bowel sounds Musculoskeletal: pulses present, edema present left UE edema noted Lymphatic: no nodes Skin: no rash, normal turgor Dx/Plan (1) Acute respiratory failure with hypoxia Code(s): J96.01 - ACUTE RESPIRATORY FAILURE WITH HYPOXIA Status: Acute Comment: Continue NIMV, not weanable (2) Acute kidney injury Code(s): N17.9 - ACUTE KIDNEY FAILURE, UNSPECIFIED Status: Resolved (3) Acute metabolic encephalopathy Code(s): G93.41 - METABOLIC ENCEPHALOPATHY Status: Acute Comment: Persistent secondary to #1, supportive mgmt (4) Axillary lymphadenopathy Code(s): R59.0 - LOCALIZED ENLARGED LYMPH NODES Status: Acute (5) Hypercalcemia of malignancy Code(s): E83.52 - HYPERCALCEMIA Status: Resolved (6) Hypokalemia Code(s): E87.6 - HYPOKALEMIA Status: Acute Comment: KCL replacment per CCU protocol (7) Left breast mass Code(s): N63.20 - UNSPECIFIED LUMP IN THE LEFT BREAST, UNSPECIFIED QUADRANT Status: Acute Comment: Likely malignant breast cancer, pt does not want any treatment per family report (8) Osseous metastasis Code(s): C79.51 - SECONDARY MALIGNANT NEOPLASM OF BONE Status: Acute (9) Pleural effusion, left Code(s): J90 - PLEURAL EFFUSION, NOT ELSEWHERE CLASSIFIED Status: Acute (10) Transaminitis Code(s): R74.0 - NONSPEC ELEV OF LEVELS OF TRANSAMNS & LACTIC ACID DEHYDRGNSE Status: Acute (11) UTI (urinary tract infection) Status: Acute (12) Hypoglycemia Code(s): E16.2 - HYPOGLYCEMIA, UNSPECIFIED Status: Acute (13) Status epilepticus Code(s): G40.901 - EPILEPSY, UNSP, NOT INTRACTABLE, WITH STATUS EPILEPTICUS Status: Acute Comment: Keppra 1500mg IV BID (14) Hypernatremia Code(s): E87.0 - HYPEROSMOLALITY AND HYPERNATREMIA Status: Acute (15) Hypomagnesemia Code(s): E83.42 - HYPOMAGNESEMIA Status: Acute (16) Hypophosphatemia Code(s): E83.39 - OTHER DISORDERS OF PHOSPHORUS METABOLISM Status: Acute (17) Ventilator associated pneumonia Code(s): J95.851 - VENTILATOR ASSOCIATED PNEUMONIA Status: Acute (18) Anoxic brain injury Status: Suspected Comment: Likely after prolonged seizure activity - Plan cont current plan of care, continue antibiotics * start cefepime and vancomycin for KYLE consolidation * vent as per pulmonary * medication reviewed as below * symptomatic treatment * supportive care. Review of Systems - Review of Systems Other: unable to review due to intubated status - Medications/Allergies Allergies/Adverse Reactions: Allergies Allergy/AdvReac Type Severity Reaction Status Date / Time amoxicillin [From Augmentin] Allergy Diarrhea Verified 01/24/18 12:57 clavulanic acid Allergy Diarrhea Verified 01/24/18 12:57 [From Augmentin] clindamycin Allergy diarrhea/di Verified 01/24/18 12:57 zziness shrimp Allergy Anaphylaxis Verified 01/24/18 12:57 Sulfa (Sulfonamide Allergy Rash Verified 01/24/18 12:57 Antibiotics) Medications: Current Medications Acetaminophen (Tylenol) 650 mg PO Q4H PRN PRN Reason: Headache/Fever or Pain Last Admin: 08/28/18 07:05 Dose: 650 mg Albuterol Sulfate (Albuterol Sulfate) 1.25 mg NEB Q4H PRN PRN Reason: Wheezing Albuterol/Ipratropium (Duoneb) 3 ml NEB [id number] [facility] Last Admin: 08/28/18 07:53 Dose: 3 ml Lipase/Protease/Amylase ([place] [id number]) 1 cap FS .PER PROTOCOL PRN PRN Reason: TUBE OCCLUSION PROTOCOL Artificial Tears (Tears Naturale) 0 drop EA EYE PRN PRN PRN Reason: Dry Eyes Bacitracin Zinc (Bacitracin) 1 pk TOP DAILYPRN PRN PRN Reason: ABRASIONS Last Admin: 08/27/18 12:34 Dose: 1 pk Bisacodyl (Dulcolax) 10 mg [place] DAILYPRN PRN PRN Reason: Constipation Dextrose/Water (Dextrose 50%) 25 gm IVP PRN PRN PRN Reason: HYPOGLYCEMIA PROTOCOL Enoxaparin Sodium (Lovenox) 40 mg SC 0900 [facility] Last Admin: 08/28/18 08:55 Dose: 40 mg Famotidine (Pepcid) 20 mg SLOW IVP BID [facility] Last Admin: 08/28/18 08:53 Dose: 20 mg Glucagon (Glucagon) 1 mg IM PRN PRN PRN Reason: HYPOGLYCEMIA PROTOCOL Hydralazine HCl (Apresoline) 10 mg SLOW IVP Q4H PRN PRN Reason: Systolic BP > 180 Last Admin: 08/26/18 15:39 Dose: 10 mg Dextrose/Water (D5w) 1,000 mls @ 0 mls/hr IV INF PRN PRN Reason: HYPOGLYCEMIA PROTOCOL Levetiracetam 1,500 mg/ Device 100 mls @ 200 mls/hr IVPB BID [facility] Last Admin: 08/28/18 08:52 Dose: 100 mls Potassium Chloride 40 meq/ (Sodium Chloride) 270 mls @ 135 mls/hr IVPB ASDIR PRN PRN Reason: FOR SERUM K+ 2.5 - 3.5 Last Admin: 08/27/18 06:14 Dose: 270 mls Potassium Chloride 40 meq/ (Device) 100 mls @ 50 mls/hr IVPB ASDIR PRN PRN Reason: FOR SERUM K+ 2.5 - 3.5 Last Admin: 08/28/18 07:06 Dose: 100 mls Magnesium Sulfate 1 gm/ Sodium (Chloride) 102 mls @ 102 mls/hr IV PRN PRN PRN Reason: MAG LEVEL 1.4 - 2.0 Magnesium Sulfate 2 gm/ Device 100 mls @ 100 mls/hr IVPB ASDIR PRN PRN Reason: MAGNESIUM < 1.4 Potassium Phosphate 9 mmol/ (Sodium Chloride) 103 mls @ 25.75 mls/hr IVPB ASDIR PRN PRN Reason: Phosphate 1.0-1.8 Potassium Phosphate 12 mmol/ (Sodium Chloride) 254 mls @ 63.5 mls/hr IV ASDIR PRN PRN Reason: Serum phosphate 0.5-0.9 Potassium Phosphate 15 mmol/ (Sodium Chloride) 255 mls @ 63.75 mls/hr IV ASDIR PRN PRN Reason: Serum Phos < 0.5 Dextrose/Sodium Chloride (D5 1/4 Ns) 1,000 mls @ 125 mls/hr IV .Q8H [facility] Last Admin: 08/28/18 08:53 Dose: 1,000 mls Dexmedetomidine HCl 400 mcg/ (Sodium Chloride) 100 mls @ 0 mls/hr IVPB INF ARLENE ; Protocol Last Admin: 08/28/18 10:00 Dose: 100 mls Cefepime HCl 2 gm/ Sodium (Chloride) 100 mls @ 200 mls/hr IVPB 1100,2300 ARLENE Vancomycin HCl 1.75 gm/ Sodium (Chloride) 500 mls @ 250 mls/hr IVPB 1200,2359 A[facility]ENE Lorazepam (Ativan) 2 mg SLOW IVP Q1H PRN PRN Reason: .BREAKTHROUGH AGITAION Last Admin: 08/28/18 04:18 Dose: 2 mg Magnesium Oxide (Magnesium Oxide) 400 mg PO BIDPRN PRN PRN Reason: FOR SERUM MAG 1.4 - 2.0 Magnesium Oxide (Magnesium Oxide) 800 mg PO PRN PRN PRN Reason: FOR SERUM MAG < 1.4 Metoclopramide HCl (Reglan) 10 mg IVP 0400,1600,2359 [facility] Last Admin: 08/28/18 04:07 Dose: 10 mg Mineral Oil/White Petrolatum (Eucerin Cream) 0 gm TOP BIDPRN PRN PRN Reason: Dry Skin Miscellaneous Medication (Phos-Nak) 1 pkt PO TIDPRN PRN PRN Reason: FOR PHOS LEVEL 1.0 - 1.8 Miscellaneous Medication (Phos-Nak) 2 pkt PO TIDPRN PRN PRN Reason: FOR PHOS LEVEL 0.5 - 1.0 Miscellaneous Medication (Pharmacy To Dose) 1 each IVPB PRN PRN PRN Reason: Pharmacy to dose Morphine Sulfate (Morphine) 2 mg SLOW IVP Q1H PRN PRN Reason: .BREAKTHROUGH PAIN Last Admin: 08/28/18 04:18 Dose: 2 mg Ccu Electrolyte (Replacement Protocol) 0 each FS PRN PRN PRN Reason: FOR ELECTROLYTE REPLACEMENT Ondansetron HCl (Zofran) 4 mg IVP Q6H PRN PRN Reason: Nausea/Vomiting Last Admin: 08/25/18 22:28 Dose: 4 mg Potassium Chloride (K-Dur) 40 meq PO ASDIR PRN PRN Reason: FOR SERUM K+ 2.5 - 3.5 Potassium Chloride (Klor-Con) 40 meq PER TUBE ASDIR PRN PRN Reason: FOR SERUM K+ 2.5-3.5 Sodium Bicarbonate (Bicarbonate, Sodium) 650 mg PER TUBE .PER PROTOCOL PRN PRN Reason: ENTERAL TUBE OCCLUSION Sodium Chloride (Flush - Normal Saline) 10 ml IVF Q12HR [facility] Last Admin: 08/28/18 08:56 Dose: 10 ml Sodium Chloride (Flush - Normal Saline) 10 ml IVF PRN PRN PRN Reason: Saline Flush
[2018-08-28] MEDS: Vancomycin HCl 1.75 GM in Sodium Chloride 0.9% 500 ML IVPB SCH ×2 (11:30→23:25)
--- NOTE | 2018-08-28 12:07 | PRG ---
DATE OF SERVICE: 08/28/2018 35 minutes critical care time. SUBJECTIVE: The patient remains relatively comatose on mechanical ventilation. She is on Precedex d rip because she becomes tachypneic and tachycardic when that is weaned. I cannot get her to follow a ny commands for me. OBJECTIVE: VITAL SIGNS: Temperature is 99.8, pulse 74, blood pressure 107/62, and O2 saturation 99%. HEENT: . Sclerae icteric. Oropharynx clear. NECK: No JVD. CHEST: She has a rock hard left breast. LUNGS: Clear anteriorly. CARDIOVASCULAR: S1 and S2, tachycardic. ABDOMEN: Soft, obese, nontender. EXTREMITIES: No edema. LABORATORY DATA: White blood cell count 9, hematocrit 32.8, platelet count 244. PH 7.45, PCO2 of 33 , pO2 of 84 on SIMV rate 12, tidal volume 450, PEEP 5, pressure support 10, FiO2 of 40%. Sodium 142, potassium 3.3, chloride 112, CO2 of 24, BUN 12, creatinine 0.8, glucose 116. ASSESSMENT: 1. The patient continues to be in a comatose state, likely from meningeal involvement of breast canc er. 2. Metastatic breast cancer. 3. Respiratory failure, requiring mechanical ventilation. PLAN: I agree with the other doctors on the case. The situation is hopeless. The family is contemp lating how to proceed. I have reviewed the orders and do not see anything that needs to be changed a t this time .
[2018-08-28] MEDS: Cefepime 2 GM in Sodium Chloride 0.9% 100 ML IVPB SCH ×2 (12:57→22:55)
[2018-08-28] MEDS: Bacitracin Zinc 1 Packet TOP PRN (15:24)
[2018-08-29] MEDS: Lorazepam 2 MG/ML VIAL SLOW IVP PRN ×3 (03:42→13:37)
[2018-08-29] MEDS: Metoclopramide HCl 10 MG/2 ML VIAL IVP SCH ×3 (03:42→23:22)
[2018-08-29] MEDS: Morphine 2 MG/ML SYRINGE SLOW IVP PRN ×3 (03:42→14:27)
[2018-08-29 04:27] LABS: #Basophils 0.1 thou/uL (0.0-0.2); #Eosinphils 0.1 thou/uL (0.0-0.7); #Lymphocytes 2.4 thou/uL (1.20-3.40); #Monocytes 0.8 thou/uL (0.11-0.59); #Neutrophils 6.6 thou/uL (1.40-6.50); %Basophils 0.7 % (0.0-1.0); %Eosinophils 1.1 % (0.0-10.0); %Lymphocytes 23.9 % (21.0-51.0); %Monocytes 7.8 % (0.0-10.0); %Neutrophils 66.5 % (42.0-75.0); Hemoglobin 10.8 g/dL (12.0-16.0); Mean Corpuscular Hemoglobin 31.3 pg (27.0-31.0); Mean Corpuscular Volume 97.8 fL (78.0-98.0); Mean Platelet Volume 9.2 fL (7.4-10.4); Platelet Count 250 thou/uL (130-400); RBC Distribution Width 13.2 % (11.5-14.5); Red Blood Cell (RBC) Count 3.44 mill/uL (4.20-5.40); White Blood Cell (WBC) Count 9.8 thou/uL (4.8-10.8)
[2018-08-29 04:49] LABS: ALT (SGPT) 23 U/L (8-55); AST (SGOT) 51 U/L (5-34); Albumin 2.5 g/dL (3.4-4.8); Alkaline Phosphatase 152 U/L (40-150); Anion Gap 10 mmol/L (10-20); BUN (Urea Nitrogen) 15 mg/dL (9.8-20.1); Bilirubin, Total 1.9 mg/dL (0.2-1.2); Calc. Creatinine Clearance 148 mL/min (70-130); Calcium 7.9 mg/dL (7.8-10.44); Carbon Dioxide 22 mmol/L (23-31); Chloride 113 mmol/L (98-107); Estimated GFR-MDRD Greater than 90; Globulin 4.1 g/dL (2.4-3.5); Glucose 123 mg/dL (80-115); Potassium 3.4 mmol/L (3.5-5.1); Protein, Total 6.6 g/dL (6.0-8.3); Sodium 142 mmol/L (136-145)
[2018-08-29] MEDS: D5 1/4 NS 1,000 ML IV SCH (06:14)
[2018-08-29] MEDS: Potassium Chloride 40 MEQ in Premix Bag 1 BAG IVPB PRN (06:18)
[2018-08-29] MEDS ORDERED: Furosemide 40 MG/4 ML VIAL SLOW IVP SCH (07:45)
[2018-08-29] MEDS: Famotidine 20 MG TAB PER TUBE SCH ×2 (07:55→19:56)
[2018-08-29] MEDS: Enoxaparin Sodium 40 MG/0.4 ML SYRINGE SC SCH (07:55)
[2018-08-29] MEDS: levETIRAcetam In NaCl (Iso-Os) 1,500 MG in Premix Bag 1 BAG IVPB SCH ×2 (08:01→19:58)
[2018-08-29 08:53] LABS: Actual Bicarbonate (HCO3a) 23.9 mEq/L (22-28); CO2 Tension 36.7 mmHg (35.0-45.0); Calcium, Ionized 1.09 mmol/L (1.12-1.30); Carboxyhemoglobin (COHb) 0.6 gm% (0.0-3.0); Hemoglobin (Hb) 12.5 g/dL (12.0-16.0); O2 Tension (PaO2) 92.4 mmHg (> 80.0); Potassium - ABG Lab 3.96 mmol/L (3.70-5.30); Puncture Site RRA; pH, Arterial 7.43 (7.35-7.45)
[2018-08-29 08:54] LABS: ALV-art Gradient 146.925 (0-20)
--- NOTE | 2018-08-29 09:27 | RAD ---
CHEST 1 VIEW: Date: 08/29/18 INDICATION: History of intubation. COMPARISON: Prior exam dated 08/28/18. FINDINGS: There is persistent opacity within the left hemithorax. Pulmonary vascular congestion persists. ET tu be, left subclavian central venous catheter, and gastric catheter appear similar. No pneumothorax is evident. IMPRESSION: Stable exam. POS: TPC
--- NOTE | 2018-08-29 11:14 | PDOC.PN ---
- Subjective Encounter Start Date: 08/29/18 Encounter Start Time: 10:00 Patient seen and examined. pt is on vent. No overnight events - Objective Resuscitation Status: Resuscitation Status FULL:Full Resuscitation MAR Reviewed: Yes Vital Signs & Weight: Vital Signs (12 hours) Temp Pulse Resp Pulse Ox 08/29/18 10:32 86 08/29/18 10:00 40 H 08/29/18 08:48 71 08/29/18 08:00 99.0 F 30 H 100 08/29/18 06:00 28 H 08/29/18 04:00 98.9 F 29 H 08/29/18 02:32 65 28 H 100 08/29/18 02:00 31 H 08/29/18 00:00 99.0 F 31 H Weight Admit Weight 256 lb Weight 4.385 oz Most Recent Monitor Data Heart Rate from ECG 78 NIBP 116/64 NIBP BP-Mean 81 Respiration from ECG 37 SpO2 99 I&O: 08/28/18 08/29/18 08/30/18 06:59 06:59 06:59 Intake Total 4858 4245 30 Output Total 1840 2325 1500 Balance 3018 1920 -1470 Result Diagrams: 08/29/18 03:55 08/29/18 03:55 Radiology Reviewed by me: Yes (chest xray reviewed) EKG Reviewed by me: Yes Phys Exam - Physical Examination Constitutional: NAD on vent HEENT: PERRLA, sclera anicteric Neck: no JVD, supple Respiratory: no wheezing, no rhonchi anteriorly Gastrointestinal: soft, no distention, positive bowel sounds Musculoskeletal: pulses present, edema present Lymphatic: no nodes Skin: no rash, normal turgor Dx/Plan (1) Acute respiratory failure with hypoxia Code(s): J96.01 - ACUTE RESPIRATORY FAILURE WITH HYPOXIA Status: Acute Comment: Continue NIMV, not weanable (2) Acute kidney injury Code(s): N17.9 - ACUTE KIDNEY FAILURE, UNSPECIFIED Status: Resolved (3) Acute metabolic encephalopathy Code(s): G93.41 - METABOLIC ENCEPHALOPATHY Status: Acute Comment: Persistent secondary to #1, supportive mgmt (4) Axillary lymphadenopathy Code(s): R59.0 - LOCALIZED ENLARGED LYMPH NODES Status: Acute (5) Hypercalcemia of malignancy Code(s): E83.52 - HYPERCALCEMIA Status: Resolved (6) Hypokalemia Code(s): E87.6 - HYPOKALEMIA Status: Acute Comment: KCL replacment per CCU protocol (7) Left breast mass Code(s): N63.20 - UNSPECIFIED LUMP IN THE LEFT BREAST, UNSPECIFIED QUADRANT Status: Acute Comment: Likely malignant breast cancer, pt does not want any treatment per family report (8) Osseous metastasis Code(s): C79.51 - SECONDARY MALIGNANT NEOPLASM OF BONE Status: Acute (9) Pleural effusion, left Code(s): J90 - PLEURAL EFFUSION, NOT ELSEWHERE CLASSIFIED Status: Acute (10) Transaminitis Code(s): R74.0 - NONSPEC ELEV OF LEVELS OF TRANSAMNS & LACTIC ACID DEHYDRGNSE Status: Acute (11) UTI (urinary tract infection) Status: Acute (12) Hypoglycemia Code(s): E16.2 - HYPOGLYCEMIA, UNSPECIFIED Status: Acute (13) Status epilepticus Code(s): G40.901 - EPILEPSY, UNSP, NOT INTRACTABLE, WITH STATUS EPILEPTICUS Status: Acute Comment: Keppra 1500mg IV BID (14) Hypernatremia Code(s): E87.0 - HYPEROSMOLALITY AND HYPERNATREMIA Status: Acute (15) Hypomagnesemia Code(s): E83.42 - HYPOMAGNESEMIA Status: Acute (16) Hypophosphatemia Code(s): E83.39 - OTHER DISORDERS OF PHOSPHORUS METABOLISM Status: Acute (17) Ventilator associated pneumonia Code(s): J95.851 - VENTILATOR ASSOCIATED PNEUMONIA Status: Acute (18) Anoxic brain injury Status: Suspected Comment: Likely after prolonged seizure activity - Plan cont current plan of care * DC IVF * continue tube feeding * give dose of lasix * medication reviewed as below * symptomatic treatment * vent as per pulmonary * prognosis is very poor. Review of Systems - Review of Systems Other: unable to review due to intubated status - Medications/Allergies Allergies/Adverse Reactions: Allergies Allergy/AdvReac Type Severity Reaction Status Date / Time amoxicillin [From Augmentin] Allergy Diarrhea Verified 01/24/18 12:57 clavulanic acid Allergy Diarrhea Verified 01/24/18 12:57 [From Augmentin] clindamycin Allergy diarrhea/di Verified 01/24/18 12:57 zziness shrimp Allergy Anaphylaxis Verified 01/24/18 12:57 Sulfa (Sulfonamide Allergy Rash Verified 01/24/18 12:57 Antibiotics) Medications: Current Medications Acetaminophen (Tylenol) 650 mg PO Q4H PRN PRN Reason: Headache/Fever or Pain Last Admin: 08/28/18 07:05 Dose: 650 mg Albuterol Sulfate (Albuterol Sulfate) 1.25 mg NEB Q4H PRN PRN Reason: Wheezing Albuterol/Ipratropium (Duoneb) 3 ml NEB [id number] [facility] Last Admin: 08/29/18 10:31 Dose: 3 ml Lipase/Protease/Amylase ([place] [id number]) 1 cap FS .PER PROTOCOL PRN PRN Reason: TUBE OCCLUSION PROTOCOL Artificial Tears (Tears Naturale) 0 drop EA EYE PRN PRN PRN Reason: Dry Eyes Bacitracin Zinc (Bacitracin) 1 pk TOP DAILYPRN PRN PRN Reason: ABRASIONS Last Admin: 08/28/18 15:24 Dose: 1 pk Bisacodyl (Dulcolax) 10 mg ME DAILYPRN PRN PRN Reason: Constipation Dextrose/Water (Dextrose 50%) 25 gm IVP PRN PRN PRN Reason: HYPOGLYCEMIA PROTOCOL Enoxaparin Sodium (Lovenox) 40 mg SC 0900 [facility] Last Admin: 08/29/18 07:55 Dose: 40 mg Famotidine (Pepcid) 20 mg PER TUBE BID [facility] Last Admin: 08/29/18 07:55 Dose: 20 mg Glucagon (Glucagon) 1 mg IM PRN PRN PRN Reason: HYPOGLYCEMIA PROTOCOL Hydralazine HCl (Apresoline) 10 mg SLOW IVP Q4H PRN PRN Reason: Systolic BP > 180 Last Admin: 08/26/18 15:39 Dose: 10 mg Dextrose/Water (D5w) 1,000 mls @ 0 mls/hr IV INF PRN PRN Reason: HYPOGLYCEMIA PROTOCOL Levetiracetam 1,500 mg/ Device 100 mls @ 200 mls/hr IVPB BID [facility] Last Admin: 08/29/18 08:01 Dose: 100 mls Potassium Chloride 40 meq/ (Sodium Chloride) 270 mls @ 135 mls/hr IVPB ASDIR PRN PRN Reason: FOR SERUM K+ 2.5 - 3.5 Last Admin: 08/27/18 06:14 Dose: 270 mls Potassium Chloride 40 meq/ (Device) 100 mls @ 50 mls/hr IVPB ASDIR PRN PRN Reason: FOR SERUM K+ 2.5 - 3.5 Last Admin: 08/29/18 06:18 Dose: 100 mls Magnesium Sulfate 1 gm/ Sodium (Chloride) 102 mls @ 102 mls/hr IV PRN PRN PRN Reason: MAG LEVEL 1.4 - 2.0 Magnesium Sulfate 2 gm/ Device 100 mls @ 100 mls/hr IVPB ASDIR PRN PRN Reason: MAGNESIUM < 1.4 Potassium Phosphate 9 mmol/ (Sodium Chloride) 103 mls @ 25.75 mls/hr IVPB ASDIR PRN PRN Reason: Phosphate 1.0-1.8 Potassium Phosphate 12 mmol/ (Sodium Chloride) 254 mls @ 63.5 mls/hr IV ASDIR PRN PRN Reason: Serum phosphate 0.5-0.9 Potassium Phosphate 15 mmol/ (Sodium Chloride) 255 mls @ 63.75 mls/hr IV ASDIR PRN PRN Reason: Serum Phos < 0.5 Dexmedetomidine HCl 400 mcg/ (Sodium Chloride) 100 mls @ 0 mls/hr IVPB INF [facility] ; Protocol Last Admin: 08/29/18 09:34 Dose: 100 mls Cefepime HCl 2 gm/ Sodium (Chloride) 100 mls @ 200 mls/hr IVPB 1100,2300 [facility] Last Admin: 08/28/18 22:55 Dose: 100 mls Vancomycin HCl 1.75 gm/ Sodium (Chloride) 500 mls @ 250 mls/hr IVPB 1200,2359 [facility] Last Admin: 08/28/18 23:25 Dose: 500 mls Lorazepam (Ativan) 2 mg SLOW IVP Q1H PRN PRN Reason: .BREAKTHROUGH AGITAION Last Admin: 08/29/18 07:49 Dose: 2 mg Magnesium Oxide (Magnesium Oxide) 400 mg PO BIDPRN PRN PRN Reason: FOR SERUM MAG 1.4 - 2.0 Magnesium Oxide (Magnesium Oxide) 800 mg PO PRN PRN PRN Reason: FOR SERUM MAG < 1.4 Metoclopramide HCl (Reglan) 10 mg IVP 0400,1600,2359 [facility] Last Admin: 08/29/18 03:42 Dose: 10 mg Mineral Oil/White Petrolatum (Eucerin Cream) 0 gm TOP BIDPRN PRN PRN Reason: Dry Skin Miscellaneous Medication (Phos-Nak) 1 pkt PO TIDPRN PRN PRN Reason: FOR PHOS LEVEL 1.0 - 1.8 Miscellaneous Medication (Phos-Nak) 2 pkt PO TIDPRN PRN PRN Reason: FOR PHOS LEVEL 0.5 - 1.0 Miscellaneous Medication (Pharmacy To Dose) 1 each IVPB PRN PRN PRN Reason: Pharmacy to dose Morphine Sulfate (Morphine) 2 mg SLOW IVP Q1H PRN PRN Reason: .BREAKTHROUGH PAIN Last Admin: 08/29/18 07:49 Dose: 2 mg Ccu Electrolyte (Replacement Protocol) 0 each FS PRN PRN PRN Reason: FOR ELECTROLYTE REPLACEMENT Ondansetron HCl (Zofran) 4 mg IVP Q6H PRN PRN Reason: Nausea/Vomiting Last Admin: 08/25/18 22:28 Dose: 4 mg Potassium Chloride (K-Dur) 40 meq PO ASDIR PRN PRN Reason: FOR SERUM K+ 2.5 - 3.5 Potassium Chloride (Klor-Con) 40 meq PER TUBE ASDIR PRN PRN Reason: FOR SERUM K+ 2.5-3.5 Sodium Bicarbonate (Bicarbonate, Sodium) 650 mg PER TUBE .PER PROTOCOL PRN PRN Reason: ENTERAL TUBE OCCLUSION Sodium Chloride (Flush - Normal Saline) 10 ml IVF Q12HR [facility] Last Admin: 08/29/18 07:55 Dose: 10 ml Sodium Chloride (Flush - Normal Saline) 10 ml IVF PRN PRN PRN Reason: Saline Flush
[2018-08-29] MEDS: Cefepime 2 GM in Sodium Chloride 0.9% 100 ML IVPB SCH ×2 (11:15→22:13)
[2018-08-29] MEDS: Vancomycin HCl 1.75 GM in Sodium Chloride 0.9% 500 ML IVPB SCH ×2 (12:21→23:22)
[2018-08-29] MEDS ORDERED: Morphine 4 MG/ML VIAL SLOW IVP PRN (15:37)
[2018-08-29] MEDS: Morphine 4 MG/ML VIAL SLOW IVP PRN ×3 (17:06→22:25)
[2018-08-29] MEDS: Acetaminophen 325 MG TAB PO PRN (19:58)
--- NOTE | 2018-08-29 20:02 | PRG ---
DATE OF SERVICE: 08/29/2018 SUBJECTIVE: Ms. Corcoran had her Precedex restarted over the weekend. This was stopped today. This afternoon, she awakened and would follow commands and make eye contact. Unfortunately, her respiratory mechanics are terrible. She has a respiratory rate in the high 30s to low 40s, blood pressure is 133/63, Her pressure support tidal volumes are small. OBJECTIVE: LUNGS: Remarkable for coarse equal breath sounds. HEART: Regular rhythm. ABDOMEN: Soft. LABORATORY DATA: White count 9.8, hemoglobin 10.8, platelets 250,000. Sodium 142, potassium 3.4, chloride 113, bicarbonate 22, BUN 15, creatinine 0.77. PH of 7.43, CO2 of 36, pO2 of 92. IMPRESSION: 1. Metastatic breast cancer. 2. Status post intubation for status epilepticus with a prolonged encephalopathy, most likely secondary to her seizures. 3. Weakness and deconditioning. Hopefully, we can consider weaning and extubation, but her code status will need to be addressed prior to that. Hopefully, she can participate in a discussion. I have notified her sister of her awakening. Her son was not here today. I had requested that he come, but I suspect he went to work. Critical care time is 35 minutes MTDD
[2018-08-29 23:15] LABS: Vancomycin, Trough 17.8 ug/mL
[2018-08-30] MEDS: Morphine 4 MG/ML VIAL SLOW IVP PRN ×4 (00:01→11:39)
[2018-08-30] MEDS: Metoclopramide HCl 10 MG/2 ML VIAL IVP SCH ×3 (03:14→23:06)
[2018-08-30 04:34] LABS: #Basophils 0.1 thou/uL (0.0-0.2); #Eosinphils 0.1 thou/uL (0.0-0.7); #Lymphocytes 2.5 thou/uL (1.20-3.40); #Neutrophils 6.6 thou/uL (1.40-6.50); %Basophils 0.6 % (0.0-1.0); %Eosinophils 0.9 % (0.0-10.0); %Lymphocytes 24.6 % (21.0-51.0); %Neutrophils 63.8 % (42.0-75.0); Hemoglobin 11.2 g/dL (12.0-16.0); Mean Corpuscular Hemoglobin 31.1 pg (27.0-31.0); Mean Corpuscular Volume 97.2 fL (78.0-98.0); Mean Platelet Volume 8.9 fL (7.4-10.4); Platelet Count 273 thou/uL (130-400); RBC Distribution Width 13.3 % (11.5-14.5); Red Blood Cell (RBC) Count 3.62 mill/uL (4.20-5.40); White Blood Cell (WBC) Count 10.3 thou/uL (4.8-10.8)
[2018-08-30 04:52] LABS: ALT (SGPT) 37 U/L (8-55); AST (SGOT) 79 U/L (5-34); Albumin 2.6 g/dL (3.4-4.8); Alkaline Phosphatase 222 U/L (40-150); Anion Gap 10 mmol/L (10-20); BUN (Urea Nitrogen) 14 mg/dL (9.8-20.1); Bilirubin, Total 1.9 mg/dL (0.2-1.2); Calc. Creatinine Clearance 0 mL/min (70-130); Calcium 7.7 mg/dL (7.8-10.44); Carbon Dioxide 25 mmol/L (23-31); Chloride 113 mmol/L (98-107); Estimated GFR-MDRD Greater than 90; Globulin 4.4 g/dL (2.4-3.5); Glucose 103 mg/dL (80-115); Sodium 145 mmol/L (136-145)
[2018-08-30] MEDS: Potassium Chloride 40 MEQ in Premix Bag 1 BAG IVPB PRN (04:59)
[2018-08-30] MEDS: levETIRAcetam In NaCl (Iso-Os) 1,500 MG in Premix Bag 1 BAG IVPB SCH ×2 (08:01→21:01)
[2018-08-30] MEDS: Enoxaparin Sodium 40 MG/0.4 ML SYRINGE SC SCH (08:01)
[2018-08-30] MEDS: Famotidine 20 MG TAB PER TUBE SCH ×2 (08:02→21:01)
[2018-08-30 08:14] LABS: Actual Bicarbonate (HCO3a) 25.3 mEq/L (22-28); Base Excess (BEa) 2.7 mEq/L (-2.0 to +3.0); CO2 Tension 33.4 mmHg (35.0-45.0); Calcium, Ionized 1.04 mmol/L (1.12-1.30); Carboxyhemoglobin (COHb) 1.2 gm% (0.0-3.0); Hemoglobin (Hb) 12.7 g/dL (12.0-16.0); O2 Tension (PaO2) 83.1 mmHg (> 80.0); Potassium - ABG Lab 4.09 mmol/L (3.70-5.30)
[2018-08-30 08:16] LABS: Puncture Site RR
--- NOTE | 2018-08-30 09:09 | RAD ---
PORTABLE SUPINE CHEST: History: Ventilator. CCU follow up. Shortness of breath. Comparison: 08-29-18 FINDINGS: The left chest remains opacified. Hazy opacity also is seen throughout the right chest. There is evid ence of cardiomegaly and vascular congestion. ET tube remains in place. The central line is unchanged . NG tube is poorly identified. IMPRESSION: Left lung opacification is unchanged from yesterday. POS: [facility]
--- NOTE | 2018-08-30 10:10 | PDOC.PN ---
- Subjective Encounter Start Date: 08/30/18 Encounter Start Time: 07:00 pt is awake, follows simple command, - Objective Resuscitation Status: Resuscitation Status FULL:Full Resuscitation MAR Reviewed: Yes Vital Signs & Weight: Vital Signs (12 hours) Temp Pulse Resp Pulse Ox 08/30/18 08:44 112 H 08/30/18 08:10 112 H 08/30/18 08:00 98.9 F 08/30/18 06:00 29 H 08/30/18 04:00 35 H 08/30/18 03:00 99.1 F 08/30/18 02:28 107 H 36 H 99 08/30/18 02:00 34 H 08/30/18 00:00 30 H 08/29/18 23:00 99.6 F Weight Admit Weight 256 lb Weight 270 lb 11.642 oz Most Recent Monitor Data Heart Rate from ECG 110 NIBP 145/91 NIBP BP-Mean 109 Respiration from ECG 31 SpO2 99 I&O: 08/29/18 08/30/18 08/31/18 06:59 06:59 06:59 Intake Total 4245 3972 30 Output Total 2325 6141 900 Balance 1920 -2178 -870 Result Diagrams: 08/30/18 04:25 08/30/18 04:25 Radiology Reviewed by me: Yes (chest xray reviwed) EKG Reviewed by me: Yes (nsr) Phys Exam - Physical Examination Constitutional: NAD on vent HEENT: PERRLA, sclera anicteric Neck: no JVD, supple Respiratory: no wheezing, no rales, no rhonchi Cardiovascular: RRR, no significant murmur, no rub Gastrointestinal: soft, no distention, positive bowel sounds Musculoskeletal: edema present Lymphatic: no nodes Skin: no rash, normal turgor Dx/Plan (1) Acute respiratory failure with hypoxia Code(s): J96.01 - ACUTE RESPIRATORY FAILURE WITH HYPOXIA Status: Acute Comment: Continue NIMV, not weanable (2) Acute kidney injury Code(s): N17.9 - ACUTE KIDNEY FAILURE, UNSPECIFIED Status: Resolved (3) Acute metabolic encephalopathy Code(s): G93.41 - METABOLIC ENCEPHALOPATHY Status: Acute Comment: Persistent secondary to #1, supportive mgmt (4) Axillary lymphadenopathy Code(s): R59.0 - LOCALIZED ENLARGED LYMPH NODES Status: Acute (5) Hypercalcemia of malignancy Code(s): E83.52 - HYPERCALCEMIA Status: Resolved (6) Hypokalemia Code(s): E87.6 - HYPOKALEMIA Status: Acute Comment: KCL replacment per CCU protocol (7) Left breast mass Code(s): N63.20 - UNSPECIFIED LUMP IN THE LEFT BREAST, UNSPECIFIED QUADRANT Status: Acute Comment: Likely malignant breast cancer, pt does not want any treatment per family report (8) Osseous metastasis Code(s): C79.51 - SECONDARY MALIGNANT NEOPLASM OF BONE Status: Acute (9) Pleural effusion, left Code(s): J90 - PLEURAL EFFUSION, NOT ELSEWHERE CLASSIFIED Status: Acute (10) Transaminitis Code(s): R74.0 - NONSPEC ELEV OF LEVELS OF TRANSAMNS & LACTIC ACID DEHYDRGNSE Status: Acute (11) UTI (urinary tract infection) Status: Acute (12) Hypoglycemia Code(s): E16.2 - HYPOGLYCEMIA, UNSPECIFIED Status: Acute (13) Status epilepticus Code(s): G40.901 - EPILEPSY, UNSP, NOT INTRACTABLE, WITH STATUS EPILEPTICUS Status: Acute Comment: Keppra 1500mg IV BID (14) Hypernatremia Code(s): E87.0 - HYPEROSMOLALITY AND HYPERNATREMIA Status: Acute (15) Hypomagnesemia Code(s): E83.42 - HYPOMAGNESEMIA Status: Acute (16) Hypophosphatemia Code(s): E83.39 - OTHER DISORDERS OF PHOSPHORUS METABOLISM Status: Acute (17) Ventilator associated pneumonia Code(s): J95.851 - VENTILATOR ASSOCIATED PNEUMONIA Status: Acute (18) Anoxic brain injury Status: Suspected Comment: Likely after prolonged seizure activity - Plan cont current plan of care, continue antibiotics * once pt is extubated, and able to communicate herself, at that will discuss with her goal of care * medication reviewed as below * symptomatic treatment * vent as per pulmonary * continue empiric antibiotics. Review of Systems - Review of Systems Other: unable to review due to intubated status - Medications/Allergies Allergies/Adverse Reactions: Allergies Allergy/AdvReac Type Severity Reaction Status Date / Time amoxicillin [From Augmentin] Allergy Diarrhea Verified 01/24/18 12:57 clavulanic acid Allergy Diarrhea Verified 01/24/18 12:57 [From Augmentin] clindamycin Allergy diarrhea/di Verified 01/24/18 12:57 zziness shrimp Allergy Anaphylaxis Verified 01/24/18 12:57 Sulfa (Sulfonamide Allergy Rash Verified 01/24/18 12:57 Antibiotics) Medications: Current Medications Acetaminophen (Tylenol) 650 mg PO Q4H PRN PRN Reason: Headache/Fever or Pain Last Admin: 08/29/18 19:58 Dose: 650 mg Albuterol Sulfate (Albuterol Sulfate) 1.25 mg NEB Q4H PRN PRN Reason: Wheezing Albuterol/Ipratropium (Duoneb) 3 ml NEB [id number] [facility] Last Admin: 08/30/18 08:08 Dose: 3 ml Lipase/Protease/Amylase ([place] [id number]) 1 cap FS .PER PROTOCOL PRN PRN Reason: TUBE OCCLUSION PROTOCOL Artificial Tears (Tears Naturale) 0 drop EA EYE PRN PRN PRN Reason: Dry Eyes Bacitracin Zinc (Bacitracin) 1 pk TOP DAILYPRN PRN PRN Reason: ABRASIONS Last Admin: 08/28/18 15:24 Dose: 1 pk Bisacodyl (Dulcolax) 10 mg NM DAILYPRN PRN PRN Reason: Constipation Dextrose/Water (Dextrose 50%) 25 gm IVP PRN PRN PRN Reason: HYPOGLYCEMIA PROTOCOL Enoxaparin Sodium (Lovenox) 40 mg SC 0900 [facility] Last Admin: 08/30/18 08:01 Dose: 40 mg Famotidine (Pepcid) 20 mg PER TUBE BID [facility] Last Admin: 08/30/18 08:02 Dose: 20 mg Glucagon (Glucagon) 1 mg IM PRN PRN PRN Reason: HYPOGLYCEMIA PROTOCOL Hydralazine HCl (Apresoline) 10 mg SLOW IVP Q4H PRN PRN Reason: Systolic BP > 180 Last Admin: 08/26/18 15:39 Dose: 10 mg Dextrose/Water (D5w) 1,000 mls @ 0 mls/hr IV INF PRN PRN Reason: HYPOGLYCEMIA PROTOCOL Levetiracetam 1,500 mg/ Device 100 mls @ 200 mls/hr IVPB BID [facility] Last Admin: 08/30/18 08:01 Dose: 100 mls Potassium Chloride 40 meq/ (Sodium Chloride) 270 mls @ 135 mls/hr IVPB ASDIR PRN PRN Reason: FOR SERUM K+ 2.5 - 3.5 Last Admin: 08/27/18 06:14 Dose: 270 mls Potassium Chloride 40 meq/ (Device) 100 mls @ 50 mls/hr IVPB ASDIR PRN PRN Reason: FOR SERUM K+ 2.5 - 3.5 Last Admin: 08/30/18 04:59 Dose: 100 mls Magnesium Sulfate 1 gm/ Sodium (Chloride) 102 mls @ 102 mls/hr IV PRN PRN PRN Reason: MAG LEVEL 1.4 - 2.0 Magnesium Sulfate 2 gm/ Device 100 mls @ 100 mls/hr IVPB ASDIR PRN PRN Reason: MAGNESIUM < 1.4 Potassium Phosphate 9 mmol/ (Sodium Chloride) 103 mls @ 25.75 mls/hr IVPB ASDIR PRN PRN Reason: Phosphate 1.0-1.8 Potassium Phosphate 12 mmol/ (Sodium Chloride) 254 mls @ 63.5 mls/hr IV ASDIR PRN PRN Reason: Serum phosphate 0.5-0.9 Potassium Phosphate 15 mmol/ (Sodium Chloride) 255 mls @ 63.75 mls/hr IV ASDIR PRN PRN Reason: Serum Phos < 0.5 Cefepime HCl 2 gm/ Sodium (Chloride) 100 mls @ 200 mls/hr IVPB 1100,2300 [facility] Last Admin: 08/29/18 22:13 Dose: 100 mls Vancomycin HCl 1.75 gm/ Sodium (Chloride) 500 mls @ 250 mls/hr IVPB 1200,2359 [facility] Last Admin: 08/29/18 23:22 Dose: 500 mls Magnesium Oxide (Magnesium Oxide) 400 mg PO BIDPRN PRN PRN Reason: FOR SERUM MAG 1.4 - 2.0 Magnesium Oxide (Magnesium Oxide) 800 mg PO PRN PRN PRN Reason: FOR SERUM MAG < 1.4 Metoclopramide HCl (Reglan) 10 mg IVP 0400,1600,2359 [facility] Last Admin: 08/30/18 03:14 Dose: 10 mg Mineral Oil/White Petrolatum (Eucerin Cream) 0 gm TOP BIDPRN PRN PRN Reason: Dry Skin Miscellaneous Medication (Phos-Nak) 1 pkt PO TIDPRN PRN PRN Reason: FOR PHOS LEVEL 1.0 - 1.8 Miscellaneous Medication (Phos-Nak) 2 pkt PO TIDPRN PRN PRN Reason: FOR PHOS LEVEL 0.5 - 1.0 Miscellaneous Medication (Pharmacy To Dose) 1 each IVPB PRN PRN PRN Reason: Pharmacy to dose Morphine Sulfate (Morphine) 2 mg SLOW IVP Q1H PRN PRN Reason: Moderate Pain 4-6 BREAKTHROUGH Morphine Sulfate (Morphine) 4 mg SLOW IVP Q1H PRN PRN Reason: Severe Pain 7-10 BREAKTHROUGH Last Admin: 08/30/18 04:46 Dose: 4 mg Ccu Electrolyte (Replacement Protocol) 0 each FS PRN PRN PRN Reason: FOR ELECTROLYTE REPLACEMENT Ondansetron HCl (Zofran) 4 mg IVP Q6H PRN PRN Reason: Nausea/Vomiting Last Admin: 08/25/18 22:28 Dose: 4 mg Potassium Chloride (K-Dur) 40 meq PO ASDIR PRN PRN Reason: FOR SERUM K+ 2.5 - 3.5 Potassium Chloride (Klor-Con) 40 meq PER TUBE ASDIR PRN PRN Reason: FOR SERUM K+ 2.5-3.5 Sodium Bicarbonate (Bicarbonate, Sodium) 650 mg PER TUBE .PER PROTOCOL PRN PRN Reason: ENTERAL TUBE OCCLUSION Sodium Chloride (Flush - Normal Saline) 10 ml IVF Q12HR [facility] Last Admin: 08/30/18 08:02 Dose: 10 ml Sodium Chloride (Flush - Normal Saline) 10 ml IVF PRN PRN PRN Reason: Saline Flush
[2018-08-30] MEDS: Cefepime 2 GM in Sodium Chloride 0.9% 100 ML IVPB SCH ×2 (10:28→22:35)
[2018-08-30] MEDS: Vancomycin HCl 1.75 GM in Sodium Chloride 0.9% 500 ML IVPB SCH ×2 (11:41→23:06)
[2018-08-30] MEDS ORDERED: Morphine 10 MG/ML VIAL SLOW IVP SCH ×2 (11:56→13:00)
[2018-08-30] MEDS ORDERED: Morphine 4 MG/ML VIAL ONE (11:58)
[2018-08-30] MEDS ORDERED: Scopolamine 1.5 mg/72 hour Patch TD SCH (13:00)
[2018-08-30] MEDS: Morphine 10 MG/ML VIAL SLOW IVP PRN ×3 (15:35→22:33)
--- NOTE | 2018-08-30 18:09 | PRG ---
DATE OF SERVICE: 08/30/2018 SUBJECTIVE: Gabrielle Corcoran was given a spontaneous breathing trial this morning. She would awaken, ope n her eyes, make eye contact, nod and move all her extremities to command. OBJECTIVE: VITAL SIGNS: She is afebrile, heart 110, respiratory rate is in the 20s, blood pressure 124/76. Int ramos and output negative 2178. LUNGS: Clear. CARDIOVASCULAR: Regular rhythm. ABDOMEN: Soft and nontender. EXTREMITIES: Without asymmetry. Chest radiographs unchanged. IMPRESSION: Metastatic breast cancer. She was observed for several hours today with spontaneous breathing trial and developed progressively smaller tidal volumes and progressively higher respiratory rates. She was placed back on a rate and given morphine for pain that she very likely has as well as her anxiety and air hunger. I talked to the sister by phone. She has weakness and deconditioning to a point that will likely pre vent weaning from mechanical ventilation. Reviewed medications, it looks like she was started on cefepime over the weekend for "pneumonia", but I am not convinced to radiographic abnormalities or actually infectious and may very likely could be volume related or atelectasis. In any event, we will continue current care. There is only one solu tion to this problem in that hospice, in my opinion and I have relayed this to the sister again. She will never be strong enough in my opinion to be a candidate for chemotherapy even if she wanted it.
[2018-08-30] MEDS: Acetaminophen 325 MG TAB PO PRN (23:06)
[2018-08-31] MEDS: Morphine 10 MG/ML VIAL SLOW IVP PRN ×7 (00:40→23:26)
[2018-08-31] MEDS: Metoclopramide HCl 10 MG/2 ML VIAL IVP SCH ×3 (03:05→23:49)
[2018-08-31 04:50] LABS: #Basophils 0.1 thou/uL (0.0-0.2); #Eosinphils 0.1 thou/uL (0.0-0.7); #Lymphocytes 2.7 thou/uL (1.20-3.40); #Neutrophils 8.8 thou/uL (1.40-6.50); %Basophils 0.6 % (0.0-1.0); %Eosinophils 0.6 % (0.0-10.0); %Lymphocytes 21.7 % (21.0-51.0); %Monocytes 7.5 % (0.0-10.0); %Neutrophils 69.6 % (42.0-75.0); Hemoglobin 11.3 g/dL (12.0-16.0); Mean Corpuscular HGB CONC 31.4 g/dL (32.0-36.0); Mean Corpuscular Hemoglobin 30.9 pg (27.0-31.0); Mean Corpuscular Volume 98.5 fL (78.0-98.0); Mean Platelet Volume 9.4 fL (7.4-10.4); Platelet Count 292 thou/uL (130-400); RBC Distribution Width 13.4 % (11.5-14.5); Red Blood Cell (RBC) Count 3.67 mill/uL (4.20-5.40); White Blood Cell (WBC) Count 12.7 thou/uL (4.8-10.8)
[2018-08-31 05:04] LABS: ALT (SGPT) 33 U/L (8-55); AST (SGOT) 59 U/L (5-34); Albumin 2.7 g/dL (3.4-4.8); Alkaline Phosphatase 204 U/L (40-150); Anion Gap 8 mmol/L (10-20); BUN (Urea Nitrogen) 14 mg/dL (9.8-20.1); Bilirubin, Total 1.5 mg/dL (0.2-1.2); Calc. Creatinine Clearance 153 mL/min (70-130); Calcium 8.2 mg/dL (7.8-10.44); Carbon Dioxide 27 mmol/L (23-31); Chloride 114 mmol/L (98-107); Estimated GFR-MDRD Greater than 90; Globulin 4.5 g/dL (2.4-3.5); Glucose 118 mg/dL (80-115); Potassium 3.2 mmol/L (3.5-5.1); Protein, Total 7.2 g/dL (6.0-8.3); Sodium 146 mmol/L (136-145)
[2018-08-31] MEDS: Potassium Chloride 40 MEQ in Premix Bag 1 BAG IVPB PRN (05:14)
[2018-08-31 07:30] LABS: Base Excess (BEa) 1.9 mEq/L (-2.0 to +3.0); CO2 Tension 38.8 mmHg (35.0-45.0); Carboxyhemoglobin (COHb) 1.3 gm% (0.0-3.0); Hemoglobin (Hb) 11.9 g/dL (12.0-16.0); O2 Tension (PaO2) 76.3 mmHg (> 80.0); pH, Arterial 7.44 (7.35-7.45)
[2018-08-31 07:31] LABS: Puncture Site LR
--- NOTE | 2018-08-31 08:48 | RAD ---
PORTABLE CHEST: HISTORY: On ventilator and CCU followup. COMPARISON: 08/29/2018. FINDINGS: Opacification of the left hemithorax again noted. Right lung shows vascular congestion. ET tube and NG tube remain in place. Central line is unchanged. IMPRESSION: No interval change noted. POS: [facility]
[2018-08-31] MEDS: levETIRAcetam In NaCl (Iso-Os) 1,500 MG in Premix Bag 1 BAG IVPB SCH ×2 (09:43→22:24)
[2018-08-31] MEDS: Enoxaparin Sodium 40 MG/0.4 ML SYRINGE SC SCH (09:46)
[2018-08-31] MEDS: Famotidine 20 MG TAB PER TUBE SCH ×2 (09:47→22:24)
[2018-08-31] MEDS: Acetaminophen 325 MG TAB PO PRN ×3 (09:58→23:49)
--- NOTE | 2018-08-31 10:11 | PDOC.PN ---
- Subjective Encounter Start Date: 08/31/18 Encounter Start Time: 08:20 Patient seen and examined. pt is on vent. No overnight events pt has high grade fever today - Objective Resuscitation Status: Resuscitation Status DNR:Do Not Resuscitate MAR Reviewed: Yes Vital Signs & Weight: Vital Signs (12 hours) Temp Pulse Resp BP Pulse Ox 08/31/18 09:38 118 H 128/62 08/31/18 08:11 114 H 119/63 08/31/18 08:00 101 F H 20 08/31/18 06:00 23 H 08/31/18 04:00 19 08/31/18 03:00 99.7 F H 08/31/18 02:20 88 24 H 96 08/31/18 02:00 20 08/31/18 00:00 21 H 08/30/18 23:00 100.5 F H 08/30/18 22:13 110 H 24 H 99 Weight Admit Weight 256 lb Weight 268 lb 8.368 oz Most Recent Monitor Data Heart Rate from ECG 120 NIBP 128/62 NIBP BP-Mean 84 Respiration from ECG 24 SpO2 99 I&O: 08/30/18 08/31/18 09/01/18 06:59 06:59 06:59 Intake Total 3972 3254 130 Output Total 6150 3480 475 [facility] -[phone] [phone] Result Diagrams: 08/31/18 03:54 08/31/18 03:54 Radiology Reviewed by me: Yes (chest xray reviewed) EKG Reviewed by me: Yes (nsr) Phys Exam - Physical Examination Constitutional: NAD intubated HEENT: PERRLA, sclera anicteric Neck: no JVD, supple Respiratory: no wheezing, no rales, no rhonchi Cardiovascular: RRR, no significant murmur, no rub Gastrointestinal: soft, no distention, positive bowel sounds Musculoskeletal: pulses present, edema present Lymphatic: no nodes Skin: no rash, normal turgor Dx/Plan (1) Acute respiratory failure with hypoxia Code(s): J96.01 - ACUTE RESPIRATORY FAILURE WITH HYPOXIA Status: Acute Comment: (2) Acute metabolic encephalopathy Code(s): G93.41 - METABOLIC ENCEPHALOPATHY Status: Acute Comment: (3) Acute kidney injury Code(s): N17.9 - ACUTE KIDNEY FAILURE, UNSPECIFIED Status: Resolved (4) Axillary lymphadenopathy Code(s): R59.0 - LOCALIZED ENLARGED LYMPH NODES Status: Chronic (5) Hypercalcemia of malignancy Code(s): E83.52 - HYPERCALCEMIA Status: Resolved (6) Hypokalemia Code(s): E87.6 - HYPOKALEMIA Status: Acute Comment: (7) Left breast mass Code(s): N63.20 - UNSPECIFIED LUMP IN THE LEFT BREAST, UNSPECIFIED QUADRANT Status: Acute Comment: (8) Osseous metastasis Code(s): C79.51 - SECONDARY MALIGNANT NEOPLASM OF BONE Status: Acute (9) Pleural effusion, left Code(s): J90 - PLEURAL EFFUSION, NOT ELSEWHERE CLASSIFIED Status: Acute (10) Transaminitis Code(s): R74.0 - NONSPEC ELEV OF LEVELS OF TRANSAMNS & LACTIC ACID DEHYDRGNSE Status: Acute (11) UTI (urinary tract infection) Status: Acute (12) Hypoglycemia Code(s): E16.2 - HYPOGLYCEMIA, UNSPECIFIED Status: Resolved (13) Status epilepticus Code(s): G40.901 - EPILEPSY, UNSP, NOT INTRACTABLE, WITH STATUS EPILEPTICUS Status: Acute Comment: Keppra 1500mg IV BID (14) Hypernatremia Code(s): E87.0 - HYPEROSMOLALITY AND HYPERNATREMIA Status: Acute (15) Hypomagnesemia Code(s): E83.42 - HYPOMAGNESEMIA Status: Acute (16) Hypophosphatemia Code(s): E83.39 - OTHER DISORDERS OF PHOSPHORUS METABOLISM Status: Acute (17) Ventilator associated pneumonia Code(s): J95.851 - VENTILATOR ASSOCIATED PNEUMONIA Status: Acute - Plan cont current plan of care, continue antibiotics, respiratory therapy * her prognosis is very poor * she is not a candidate for any chemotherapy * she is not following command today, her eye open * medication reviewed as below * symptomatic treatment * hospice is best option. Review of Systems - Review of Systems Other: unable to review due to intubated status - Medications/Allergies Allergies/Adverse Reactions: Allergies Allergy/AdvReac Type Severity Reaction Status Date / Time amoxicillin [From Augmentin] Allergy Diarrhea Verified 01/24/18 12:57 clavulanic acid Allergy Diarrhea Verified 01/24/18 12:57 [From Augmentin] clindamycin Allergy diarrhea/di Verified 01/24/18 12:57 zziness shrimp Allergy Anaphylaxis Verified 01/24/18 12:57 Sulfa (Sulfonamide Allergy Rash Verified 01/24/18 12:57 Antibiotics) Medications: Current Medications Acetaminophen (Tylenol) 650 mg PO Q4H PRN PRN Reason: Headache/Fever or Pain Last Admin: 08/31/18 09:58 Dose: 650 mg Albuterol Sulfate (Albuterol Sulfate) 1.25 mg NEB Q4H PRN PRN Reason: Wheezing Albuterol/Ipratropium (Duoneb) 3 ml NEB U9AT-ON [facility] Last Admin: 08/31/18 10:03 Dose: 3 ml Lipase/Protease/Amylase ([place] [id number]) 1 cap FS .PER PROTOCOL PRN PRN Reason: TUBE OCCLUSION PROTOCOL Artificial Tears (Tears Naturale) 0 drop EA EYE PRN PRN PRN Reason: Dry Eyes Bacitracin Zinc (Bacitracin) 1 pk TOP DAILYPRN PRN PRN Reason: ABRASIONS Last Admin: 08/28/18 15:24 Dose: 1 pk Bisacodyl (Dulcolax) 10 mg AK DAILYPRN PRN PRN Reason: Constipation Dextrose/Water (Dextrose 50%) 25 gm IVP PRN PRN PRN Reason: HYPOGLYCEMIA PROTOCOL Enoxaparin Sodium (Lovenox) 40 mg SC 0900 [facility] Last Admin: 08/31/18 09:46 Dose: 40 mg Famotidine (Pepcid) 20 mg PER TUBE BID [facility] Last Admin: 08/31/18 09:47 Dose: 20 mg Glucagon (Glucagon) 1 mg IM PRN PRN PRN Reason: HYPOGLYCEMIA PROTOCOL Hydralazine HCl (Apresoline) 10 mg SLOW IVP Q4H PRN PRN Reason: Systolic BP > 180 Last Admin: 08/26/18 15:39 Dose: 10 mg Dextrose/Water (D5w) 1,000 mls @ 0 mls/hr IV INF PRN PRN Reason: HYPOGLYCEMIA PROTOCOL Levetiracetam 1,500 mg/ Device 100 mls @ 200 mls/hr IVPB BID [facility] Last Admin: 08/31/18 09:43 Dose: 100 mls Potassium Chloride 40 meq/ (Sodium Chloride) 270 mls @ 135 mls/hr IVPB ASDIR PRN PRN Reason: FOR SERUM K+ 2.5 - 3.5 Last Admin: 08/27/18 06:14 Dose: 270 mls Potassium Chloride 40 meq/ (Device) 100 mls @ 50 mls/hr IVPB ASDIR PRN PRN Reason: FOR SERUM K+ 2.5 - 3.5 Last Admin: 08/31/18 05:14 Dose: 100 mls Magnesium Sulfate 1 gm/ Sodium (Chloride) 102 mls @ 102 mls/hr IV PRN PRN PRN Reason: MAG LEVEL 1.4 - 2.0 Magnesium Sulfate 2 gm/ Device 100 mls @ 100 mls/hr IVPB ASDIR PRN PRN Reason: MAGNESIUM < 1.4 Potassium Phosphate 9 mmol/ (Sodium Chloride) 103 mls @ 25.75 mls/hr IVPB ASDIR PRN PRN Reason: Phosphate 1.0-1.8 Potassium Phosphate 12 mmol/ (Sodium Chloride) 254 mls @ 63.5 mls/hr IV ASDIR PRN PRN Reason: Serum phosphate 0.5-0.9 Potassium Phosphate 15 mmol/ (Sodium Chloride) 255 mls @ 63.75 mls/hr IV ASDIR PRN PRN Reason: Serum Phos < 0.5 Cefepime HCl 2 gm/ Sodium (Chloride) 100 mls @ 200 mls/hr IVPB 1100,2300 [facility] Last Admin: 08/30/18 22:35 Dose: 100 mls Vancomycin HCl 1.75 gm/ Sodium (Chloride) 500 mls @ 250 mls/hr IVPB 1200,2359 [facility] Last Admin: 08/30/18 23:06 Dose: 500 mls Magnesium Oxide (Magnesium Oxide) 400 mg PO BIDPRN PRN PRN Reason: FOR SERUM MAG 1.4 - 2.0 Magnesium Oxide (Magnesium Oxide) 800 mg PO PRN PRN PRN Reason: FOR SERUM MAG < 1.4 Metoclopramide HCl (Reglan) 10 mg IVP 0400,1600,2359 [facility] Last Admin: 08/31/18 03:05 Dose: 10 mg Mineral Oil/White Petrolatum (Eucerin Cream) 0 gm TOP BIDPRN PRN PRN Reason: Dry Skin Miscellaneous Medication (Phos-Nak) 1 pkt PO TIDPRN PRN PRN Reason: FOR PHOS LEVEL 1.0 - 1.8 Miscellaneous Medication (Phos-Nak) 2 pkt PO TIDPRN PRN PRN Reason: FOR PHOS LEVEL 0.5 - 1.0 Miscellaneous Medication (Pharmacy To Dose) 1 each IVPB PRN PRN PRN Reason: Pharmacy to dose Morphine Sulfate (Morphine) 10 mg SLOW IVP Q1H PRN PRN Reason: Pain Last Admin: 08/31/18 05:19 Dose: 10 mg Ccu Electrolyte (Replacement Protocol) 0 each FS PRN PRN PRN Reason: FOR ELECTROLYTE REPLACEMENT Ondansetron HCl (Zofran) 4 mg IVP Q6H PRN PRN Reason: Nausea/Vomiting Last Admin: 08/25/18 22:28 Dose: 4 mg Potassium Chloride (K-Dur) 40 meq PO ASDIR PRN PRN Reason: FOR SERUM K+ 2.5 - 3.5 Potassium Chloride (Klor-Con) 40 meq PER TUBE ASDIR PRN PRN Reason: FOR SERUM K+ 2.5-3.5 Scopolamine (Transderm Scop) 1.5 mg TD Q3D [facility] Last Admin: 08/30/18 12:59 Dose: 1.5 mg Sodium Bicarbonate (Bicarbonate, Sodium) 650 mg PER TUBE .PER PROTOCOL PRN PRN Reason: ENTERAL TUBE OCCLUSION Sodium Chloride (Flush - Normal Saline) 10 ml IVF Q12HR [facility] Last Admin: 08/31/18 09:47 Dose: 10 ml Sodium Chloride (Flush - Normal Saline) 10 ml IVF PRN PRN PRN Reason: Saline Flush
[2018-08-31] MEDS: Cefepime 2 GM in Sodium Chloride 0.9% 100 ML IVPB SCH ×2 (11:08→23:28)
[2018-08-31 12:02] LABS: Vancomycin, Trough 19.2 ug/mL
[2018-08-31] MEDS: Vancomycin HCl 1.75 GM in Sodium Chloride 0.9% 500 ML IVPB SCH ×2 (12:41→23:49)
--- NOTE | 2018-08-31 17:31 | PRG ---
DATE OF SERVICE: 08/31/2018 SUBJECTIVE: Ms. Corcoran is still with mild resting tachycardia. She is receiving morphine for pain and comfort care. Her son made a decision last night to proceed with extubation and comfort care tomorrow. Intake and outputs negative 226. OBJECTIVE: VITAL SIGNS: Heart rate 79, blood pressure 143/83, respiratory rates in the 20s. LUNGS: Remarkable for decreased breath sounds on the left. HEART: Regular rhythm. ABDOMEN: Soft. EXTREMITIES: Without asymmetry. IMAGING: Chest radiograph is hazy on the left. I suspect she is developing a left effusion, possibl y related to her malignancy. IMPRESSION: 1. Respiratory failure associated with status epilepticus. 2. Widely metastatic breast cancer with no therapeutic options. 3. DO NOT RESUSCITATE status. PLAN: Comfort care with extubation tomorrow once several family members are here, who are pastors. I really appreciate Palliative Care's efforts to discuss all of the care issues with the son. Critical care time 30 minutes.
[2018-09-01 04:55] LABS: #Basophils 0.1 thou/uL (0.0-0.2); #Eosinphils 0.1 thou/uL (0.0-0.7); #Lymphocytes 3.3 thou/uL (1.20-3.40); #Monocytes 1.4 thou/uL (0.11-0.59); #Neutrophils 10.1 thou/uL (1.40-6.50); %Basophils 0.6 % (0.0-1.0); %Eosinophils 0.6 % (0.0-10.0); %Lymphocytes 22.2 % (21.0-51.0); %Monocytes 9.3 % (0.0-10.0); %Neutrophils 67.3 % (42.0-75.0); Hemoglobin 10.7 g/dL (12.0-16.0); Mean Corpuscular HGB CONC 31.3 g/dL (32.0-36.0); Mean Corpuscular Hemoglobin 30.8 pg (27.0-31.0); Mean Corpuscular Volume 98.4 fL (78.0-98.0); Platelet Count 292 thou/uL (130-400); RBC Distribution Width 13.5 % (11.5-14.5); Red Blood Cell (RBC) Count 3.48 mill/uL (4.20-5.40); White Blood Cell (WBC) Count 15.1 thou/uL (4.8-10.8)
[2018-09-01] MEDS: Morphine 10 MG/ML VIAL SLOW IVP PRN ×4 (04:56→20:17)
[2018-09-01] MEDS: Metoclopramide HCl 10 MG/2 ML VIAL IVP SCH (04:57)
[2018-09-01 05:19] LABS: ALT (SGPT) 29 U/L (8-55); AST (SGOT) 55 U/L (5-34); Albumin 2.6 g/dL (3.4-4.8); Alkaline Phosphatase 180 U/L (40-150); Anion Gap 9 mmol/L (10-20); BUN (Urea Nitrogen) 13 mg/dL (9.8-20.1); Bilirubin, Total 1.1 mg/dL (0.2-1.2); Calc. Creatinine Clearance 160 mL/min (70-130); Calcium 7.9 mg/dL (7.8-10.44); Carbon Dioxide 26 mmol/L (23-31); Chloride 114 mmol/L (98-107); Estimated GFR-MDRD Greater than 90; Globulin 4.4 g/dL (2.4-3.5); Glucose 124 mg/dL (80-115); Potassium 3.3 mmol/L (3.5-5.1); Sodium 146 mmol/L (136-145)
[2018-09-01 05:24] VITALS: BMI 37.8
--- NOTE | 2018-09-01 08:33 | RAD ---
PORTABLE CHEST: HISTORY: Respiratory distress. COMPARISON: Prior day's study. FINDINGS: Endotracheal tube is in satisfactory position. Left subclavian line is unchanged. Opacification of the left hemithorax is similar to the prior study. No change in the appearance as compared to the pr ior exam. Parenchymal lung changes of the right lung are felt to be similar given differences in ken hnique. IMPRESSION: Essentially stable exam. POS: [facility]
[2018-09-01] MEDS: levETIRAcetam In NaCl (Iso-Os) 1,500 MG in Premix Bag 1 BAG IVPB SCH (08:53)
[2018-09-01] MEDS: Potassium Chloride 40 MEQ in Premix Bag 1 BAG IVPB PRN (08:53)
[2018-09-01] MEDS: Famotidine 20 MG TAB PER TUBE SCH (08:54)
[2018-09-01] MEDS: Enoxaparin Sodium 40 MG/0.4 ML SYRINGE SC SCH (08:54)
--- NOTE | 2018-09-01 10:15 | PDOC.PN ---
- Subjective Encounter Start Date: 09/01/18 Encounter Start Time: 09:40 Patient seen and examined. No overnight events - Objective Resuscitation Status: Resuscitation Status DNR:Do Not Resuscitate MAR Reviewed: Yes Vital Signs & Weight: Vital Signs (12 hours) Temp Pulse Resp BP Pulse Ox 09/01/18 08:00 22 H 99 09/01/18 07:33 91 168/75 H 09/01/18 07:31 91 20 99 09/01/18 07:00 99.8 F H 09/01/18 06:00 99.8 F H 20 09/01/18 05:00 99.8 F H 09/01/18 04:00 100.7 F H 19 09/01/18 02:24 100 20 100 09/01/18 02:00 23 H 09/01/18 00:00 22 H 08/31/18 23:00 101.3 F H Weight Admit Weight 256 lb Weight 270 lb 11.642 oz Most Recent Monitor Data Heart Rate from ECG 92 NIBP 146/64 NIBP BP-Mean 91 Respiration from ECG 23 SpO2 99 I&O: 08/31/18 09/01/18 09/02/18 06:59 06:59 06:59 Intake Total 3254 2926 30 Output Total 3480 2595 340 Balance -226 331 -310 Result Diagrams: 09/01/18 04:45 09/01/18 04:45 Radiology Reviewed by me: Yes (chest xray reviewed) EKG Reviewed by me: Yes (nsr) Phys Exam - Physical Examination Constitutional: NAD on vent HEENT: PERRLA, sclera anicteric Neck: no JVD, supple Respiratory: no wheezing, no rales, no rhonchi Cardiovascular: RRR, no significant murmur, no rub Gastrointestinal: soft, no distention, positive bowel sounds Musculoskeletal: pulses present, edema present Lymphatic: no nodes Skin: no rash, normal turgor Dx/Plan (1) Acute respiratory failure with hypoxia Code(s): J96.01 - ACUTE RESPIRATORY FAILURE WITH HYPOXIA Status: Acute Comment: (2) Acute metabolic encephalopathy Code(s): G93.41 - METABOLIC ENCEPHALOPATHY Status: Acute Comment: (3) Acute kidney injury Code(s): N17.9 - ACUTE KIDNEY FAILURE, UNSPECIFIED Status: Resolved (4) Axillary lymphadenopathy Code(s): R59.0 - LOCALIZED ENLARGED LYMPH NODES Status: Chronic (5) Hypercalcemia of malignancy Code(s): E83.52 - HYPERCALCEMIA Status: Resolved (6) Hypokalemia Code(s): E87.6 - HYPOKALEMIA Status: Acute Comment: (7) Left breast mass Code(s): N63.20 - UNSPECIFIED LUMP IN THE LEFT BREAST, UNSPECIFIED QUADRANT Status: Acute Comment: (8) Osseous metastasis Code(s): C79.51 - SECONDARY MALIGNANT NEOPLASM OF BONE Status: Acute (9) Pleural effusion, left Code(s): J90 - PLEURAL EFFUSION, NOT ELSEWHERE CLASSIFIED Status: Acute (10) Transaminitis Code(s): R74.0 - NONSPEC ELEV OF LEVELS OF TRANSAMNS & LACTIC ACID DEHYDRGNSE Status: Acute (11) UTI (urinary tract infection) Status: Acute (12) Hypoglycemia Code(s): E16.2 - HYPOGLYCEMIA, UNSPECIFIED Status: Resolved (13) Status epilepticus Code(s): G40.901 - EPILEPSY, UNSP, NOT INTRACTABLE, WITH STATUS EPILEPTICUS Status: Acute Comment: Keppra 1500mg IV BID (14) Hypernatremia Code(s): E87.0 - HYPEROSMOLALITY AND HYPERNATREMIA Status: Acute (15) Hypomagnesemia Code(s): E83.42 - HYPOMAGNESEMIA Status: Acute (16) Hypophosphatemia Code(s): E83.39 - OTHER DISORDERS OF PHOSPHORUS METABOLISM Status: Acute (17) Ventilator associated pneumonia Code(s): J95.851 - VENTILATOR ASSOCIATED PNEUMONIA Status: Acute - Plan cont current plan of care, plan discussed w/ family, continue antibiotics * today possible extubation when family arrive * medication reviewed as below * symptomatic treatment * will consider hospice evaluation after extubation for comfort care * prognosis is very poor * continue cefepime, vancomycin empirically for now * pt is now DNR. * continue keppra Review of Systems - Review of Systems Other: unable to review due to intubated status and encephalopathy - Medications/Allergies Allergies/Adverse Reactions: Allergies Allergy/AdvReac Type Severity Reaction Status Date / Time amoxicillin [From Augmentin] Allergy Diarrhea Verified 01/24/18 12:57 clavulanic acid Allergy Diarrhea Verified 01/24/18 12:57 [From Augmentin] clindamycin Allergy diarrhea/di Verified 01/24/18 12:57 zziness shrimp Allergy Anaphylaxis Verified 01/24/18 12:57 Sulfa (Sulfonamide Allergy Rash Verified 01/24/18 12:57 Antibiotics) Medications: Current Medications Acetaminophen (Tylenol) 650 mg PO Q4H PRN PRN Reason: Headache/Fever or Pain Last Admin: 08/31/18 23:49 Dose: 650 mg Albuterol Sulfate (Albuterol Sulfate) 1.25 mg NEB Q4H PRN PRN Reason: Wheezing Albuterol/Ipratropium (Duoneb) 3 ml NEB [id number] [facility] Last Admin: 09/01/18 07:31 Dose: 3 ml Lipase/Protease/Amylase ([place] [id number]) 1 cap FS .PER PROTOCOL PRN PRN Reason: TUBE OCCLUSION PROTOCOL Artificial Tears (Tears Naturale) 0 drop EA EYE PRN PRN PRN Reason: Dry Eyes Bacitracin Zinc (Bacitracin) 1 pk TOP DAILYPRN PRN PRN Reason: ABRASIONS Last Admin: 08/28/18 15:24 Dose: 1 pk Bisacodyl (Dulcolax) 10 mg ID DAILYPRN PRN PRN Reason: Constipation Dextrose/Water (Dextrose 50%) 25 gm IVP PRN PRN PRN Reason: HYPOGLYCEMIA PROTOCOL Enoxaparin Sodium (Lovenox) 40 mg SC 0900 [facility] Last Admin: 09/01/18 08:54 Dose: 40 mg Famotidine (Pepcid) 20 mg PER TUBE BID [facility] Last Admin: 09/01/18 08:54 Dose: 20 mg Glucagon (Glucagon) 1 mg IM PRN PRN PRN Reason: HYPOGLYCEMIA PROTOCOL Hydralazine HCl (Apresoline) 10 mg SLOW IVP Q4H PRN PRN Reason: Systolic BP > 180 Last Admin: 08/26/18 15:39 Dose: 10 mg Dextrose/Water (D5w) 1,000 mls @ 0 mls/hr IV INF PRN PRN Reason: HYPOGLYCEMIA PROTOCOL Levetiracetam 1,500 mg/ Device 100 mls @ 200 mls/hr IVPB BID [facility] Last Admin: 09/01/18 08:53 Dose: 100 mls Potassium Chloride 40 meq/ (Sodium Chloride) 270 mls @ 135 mls/hr IVPB ASDIR PRN PRN Reason: FOR SERUM K+ 2.5 - 3.5 Last Admin: 08/27/18 06:14 Dose: 270 mls Potassium Chloride 40 meq/ (Device) 100 mls @ 50 mls/hr IVPB ASDIR PRN PRN Reason: FOR SERUM K+ 2.5 - 3.5 Last Admin: 09/01/18 08:53 Dose: 100 mls Magnesium Sulfate 1 gm/ Sodium (Chloride) 102 mls @ 102 mls/hr IV PRN PRN PRN Reason: MAG LEVEL 1.4 - 2.0 Magnesium Sulfate 2 gm/ Device 100 mls @ 100 mls/hr IVPB ASDIR PRN PRN Reason: MAGNESIUM < 1.4 Potassium Phosphate 9 mmol/ (Sodium Chloride) 103 mls @ 25.75 mls/hr IVPB ASDIR PRN PRN Reason: Phosphate 1.0-1.8 Potassium Phosphate 12 mmol/ (Sodium Chloride) 254 mls @ 63.5 mls/hr IV ASDIR PRN PRN Reason: Serum phosphate 0.5-0.9 Potassium Phosphate 15 mmol/ (Sodium Chloride) 255 mls @ 63.75 mls/hr IV ASDIR PRN PRN Reason: Serum Phos < 0.5 Cefepime HCl 2 gm/ Sodium (Chloride) 100 mls @ 200 mls/hr IVPB 1100,2300 [facility] Last Admin: 08/31/18 23:28 Dose: 100 mls Vancomycin HCl 1.75 gm/ Sodium (Chloride) 500 mls @ 250 mls/hr IVPB 1200,2359 [facility] Last Admin: 08/31/18 23:49 Dose: 500 mls Magnesium Oxide (Magnesium Oxide) 400 mg PO BIDPRN PRN PRN Reason: FOR SERUM MAG 1.4 - 2.0 Magnesium Oxide (Magnesium Oxide) 800 mg PO PRN PRN PRN Reason: FOR SERUM MAG < 1.4 Metoclopramide HCl (Reglan) 10 mg IVP 0400,1600,2359 [facility] Last Admin: 09/01/18 04:57 Dose: 10 mg Mineral Oil/White Petrolatum (Eucerin Cream) 0 gm TOP BIDPRN PRN PRN Reason: Dry Skin Miscellaneous Medication (Phos-Nak) 1 pkt PO TIDPRN PRN PRN Reason: FOR PHOS LEVEL 1.0 - 1.8 Miscellaneous Medication (Phos-Nak) 2 pkt PO TIDPRN PRN PRN Reason: FOR PHOS LEVEL 0.5 - 1.0 Miscellaneous Medication (Pharmacy To Dose) 1 each IVPB PRN PRN PRN Reason: Pharmacy to dose Morphine Sulfate (Morphine) 10 mg SLOW IVP Q1H PRN PRN Reason: Pain Last Admin: 09/01/18 04:56 Dose: 10 mg Ccu Electrolyte (Replacement Protocol) 0 each FS PRN PRN PRN Reason: FOR ELECTROLYTE REPLACEMENT Ondansetron HCl (Zofran) 4 mg IVP Q6H PRN PRN Reason: Nausea/Vomiting Last Admin: 08/25/18 22:28 Dose: 4 mg Potassium Chloride (K-Dur) 40 meq PO ASDIR PRN PRN Reason: FOR SERUM K+ 2.5 - 3.5 Potassium Chloride (Klor-Con) 40 meq PER TUBE ASDIR PRN PRN Reason: FOR SERUM K+ 2.5-3.5 Scopolamine (Transderm Scop) 1.5 mg TD Q3D [facility] Last Admin: 08/30/18 12:59 Dose: 1.5 mg Sodium Bicarbonate (Bicarbonate, Sodium) 650 mg PER TUBE .PER PROTOCOL PRN PRN Reason: ENTERAL TUBE OCCLUSION Sodium Chloride (Flush - Normal Saline) 10 ml IVF Q12HR [facility] Last Admin: 09/01/18 08:54 Dose: 10 ml Sodium Chloride (Flush - Normal Saline) 10 ml IVF PRN PRN PRN Reason: Saline Flush
[2018-09-01] MEDS: Cefepime 2 GM in Sodium Chloride 0.9% 100 ML IVPB SCH (11:27)
[2018-09-01] MEDS: Acetaminophen 1,000 MG in Premix Bag 1 BAG IVPB PRN (12:49)
[2018-09-01] MEDS: Lorazepam 2 MG/ML VIAL SLOW IVP PRN ×4 (12:53→20:17)
--- NOTE | 2018-09-01 20:10 | PRG ---
DATE OF SERVICE: 09/01/2018 Gabrielle chambers is here. We are awaiting the son's decision. He wanted to sit with his mot her for a while before she was extubated. I would not anticipate she would last very long. All rout ine lab and x-rays have been discontinued. Ativan and morphine are available for comfort.
[2018-09-02] MEDS: Morphine 10 MG/ML VIAL SLOW IVP PRN ×7 (00:47→18:26)
[2018-09-02] MEDS: Lorazepam 2 MG/ML VIAL SLOW IVP PRN ×7 (00:48→18:28)
[2018-09-02] MEDS ORDERED: Lorazepam 2 MG/ML VIAL ONE (04:51)
[2018-09-02] MEDS ORDERED: Atropine Sulfate 1 mg/10 ml Syringe ONE (04:52)
[2018-09-02] MEDS ORDERED: Morphine 10 MG/ML VIAL ONE ×2 (04:52→08:44)
[2018-09-02] MEDS ORDERED: Heparin 5,000 UNITS/ML VIAL ONE (06:57)
[2018-09-02] MEDS ORDERED: Acetaminophen 650 MG Suppository ONE (08:17)
[2018-09-02] MEDS ORDERED: Morphine IR 10 MG/5 ML UDCUP ONE (08:27)
[2018-09-02] MEDS ORDERED: Scopolamine 1.5 mg/72 hour Patch TOP SCH (12:00)
--- NOTE | 2018-09-02 13:11 | DIS ---
DATE OF ADMISSION: 08/18/2018 DATE OF DISCHARGE: 09/02/2018 DISCHARGE DISPOSITION: Inpatient hospice care for comfort care. PRIMARY DISCHARGE DIAGNOSES: Metastatic left breast cancer, hypercalcemia of malignancy, acute metab olic encephalopathy, status epilepticus with anoxic brain injury, acute respiratory failure with hypo antionette, abnormal electrolytes, ventilator-associated pneumonia, urinary tract infection. PRIMARY PROCEDURE/OPERATION: Endotracheal intubation, mechanical ventilator support, EEG, central li ne placement. RADIOLOGICAL INVESTIGATION: CT brain, CT angiography, CT cervical spine, chest x-ray, MRI brain, all this investigation showed osseous metastasis, left pleural effusion. There was no brain metastasis. SIGNIFICANT LABORATORY DATA: Hemoglobin 10.7, WBC 15.1, platelet 292. INR 1.1. Sodium 146, potassi um 3.3, BUN 13, creatinine 0.71, calcium 7.9, AST 55, ALT 29, alkaline phosphatase 180, albumin 2.6. Blood culture was negative. Urine culture was negative. DISCHARGE MEDICATIONS: The patient is discharged to inpatient hospice for comfort care only. She wi ll have morphine, Ativan, scopolamine patch. CONTRAINDICATIONS: None. CODE STATUS: DNR. INPATIENT CONSULTANTS: Oncology group was following. General Surgery was consulted while in [facility] for breast cancer. Neurosurgeon group was consulted for osseous metastasis to spine. Pulmonary gr oup was following for vent management. Neurology was following for seizure. TEST RESULTS PENDING ON DISCHARGE: None. ALLERGIES: AMOXICILLIN and CLINDAMYCIN. DISCHARGE PLAN: Post hospital, the patient is discharged to inpatient hospice for comfort care. HOSPITAL COURSE: The patient is a 63-year-old female who was admitted by Dr. Quach on 08/19/2018. Please see his HPI for further detail. The patient came to ER on 08/18/2018. She had hypercalcemi a and severe electrolyte abnormality with acute kidney failure. She was altered. She required intub ation and she was admitted in CCU. In the emergency room, CT cervical spine, CT angiography and CT b rain and chest x-ray showed osseous metastasis to spine. There was no metastasis in the brain, left pleural effusion was identified. Subsequently, the patient had MRI brain which did not show any meta stasis. She was having recurrent seizure, which was attributed to be due to abnormal electrolytes. She was having status epilepticus. The patient was unresponsive and she was intubated. She was not weanable during entire hospital course. She developed ventilator associated pneumonia. Her hypercal cemia malignancy was treated with IV fluid and Lasix. All abnormal electrolytes we tried to correct with replacement. Her infection treated with cefepime and vancomycin. Her seizure was controlled wi the [facility]. This patient was found with advanced metastatic left breast cancer with bone and lung metastasis. Th is patient is not a candidate for any kind of intervention, Oncology was consulted and they recommen ded that patient is not a candidate for any chemo treatment. This patient did not want to be treated for her breast cancer begin with. The patient was made DNR with the help of palliative care as well as after discussion with the patient's son. The patient was not making any progress and that is why the patient was terminally extubated for comfort care and transferred to oncology floor. The patient is now actively dying and hospice accepted this patient for hospice care. We are dischar ging to inpatient hospice for comfort care only. Total time spent on discharge 32 minutes.
[2018-09-02 13:30] VITALS: BP 108/53; TEMP 102.6
--- NOTE | 2018-09-02 14:40 | PDOC.PN ---
- Subjective Encounter Start Date: 09/02/18 Encounter Start Time: 07:00 this morning pt is dying, she is on comfort care - Objective Resuscitation Status: Resuscitation Status DNR:Do Not Resuscitate MAR Reviewed: Yes Vital Signs & Weight: Weight Admit Weight 256 lb Weight 270 lb 11.642 oz Most Recent Monitor Data Heart Rate from ECG 99 NIBP 116/84 NIBP BP-Mean 94 Respiration from ECG 28 SpO2 98 I&O: 09/01/18 09/02/18 09/03/18 06:59 06:59 06:59 Intake Total 2926 447 Output Total 2595 982 Balance 331 -535 Result Diagrams: 09/01/18 04:45 09/01/18 04:45 Phys Exam - Physical Examination Constitutional: NAD dry MM Neck: no JVD, supple bilateral coarse sound+ Cardiovascular: RRR, no significant murmur Gastrointestinal: soft, no distention, positive bowel sounds Musculoskeletal: edema present unable to assess Deviation from normal: unable to assess Dx/Plan (1) Acute respiratory failure with hypoxia Code(s): J96.01 - ACUTE RESPIRATORY FAILURE WITH HYPOXIA Status: Acute Comment: (2) Acute metabolic encephalopathy Code(s): G93.41 - METABOLIC ENCEPHALOPATHY Status: Acute Comment: (3) Acute kidney injury Code(s): N17.9 - ACUTE KIDNEY FAILURE, UNSPECIFIED Status: Resolved (4) Axillary lymphadenopathy Code(s): R59.0 - LOCALIZED ENLARGED LYMPH NODES Status: Chronic (5) Hypercalcemia of malignancy Code(s): E83.52 - HYPERCALCEMIA Status: Resolved (6) Hypokalemia Code(s): E87.6 - HYPOKALEMIA Status: Acute Comment: (7) Left breast mass Code(s): N63.20 - UNSPECIFIED LUMP IN THE LEFT BREAST, UNSPECIFIED QUADRANT Status: Acute Comment: (8) Osseous metastasis Code(s): C79.51 - SECONDARY MALIGNANT NEOPLASM OF BONE Status: Acute (9) Pleural effusion, left Code(s): J90 - PLEURAL EFFUSION, NOT ELSEWHERE CLASSIFIED Status: Acute (10) Transaminitis Code(s): R74.0 - NONSPEC ELEV OF LEVELS OF TRANSAMNS & LACTIC ACID DEHYDRGNSE Status: Acute (11) UTI (urinary tract infection) Status: Acute (12) Hypoglycemia Code(s): E16.2 - HYPOGLYCEMIA, UNSPECIFIED Status: Resolved (13) Status epilepticus Code(s): G40.901 - EPILEPSY, UNSP, NOT INTRACTABLE, WITH STATUS EPILEPTICUS Status: Acute Comment: Keppra 1500mg IV BID (14) Hypernatremia Code(s): E87.0 - HYPEROSMOLALITY AND HYPERNATREMIA Status: Acute (15) Hypomagnesemia Code(s): E83.42 - HYPOMAGNESEMIA Status: Acute (16) Hypophosphatemia Code(s): E83.39 - OTHER DISORDERS OF PHOSPHORUS METABOLISM Status: Acute (17) Ventilator associated pneumonia Code(s): J95.851 - VENTILATOR ASSOCIATED PNEUMONIA Status: Acute - Plan cont current plan of care * currently on comfort care * consult registered nurse [facility] case manager for inpt hospice evaluation * pt is dying and provide supportive care. Review of Systems - Review of Systems Other: unable to review as pt is unresponsive - Medications/Allergies Allergies/Adverse Reactions: Allergies Allergy/AdvReac Type Severity Reaction Status Date / Time amoxicillin [From Augmentin] Allergy Diarrhea Verified 01/24/18 12:57 clavulanic acid Allergy Diarrhea Verified 01/24/18 12:57 [From Augmentin] clindamycin Allergy diarrhea/di Verified 01/24/18 12:57 zziness shrimp Allergy Anaphylaxis Verified 01/24/18 12:57 Sulfa (Sulfonamide Allergy Rash Verified 01/24/18 12:57 Antibiotics) Medications: Current Medications Lorazepam (Ativan) 1 mg SLOW IVP Q1H PRN PRN Reason: ANXIETY OR [employer] Last Admin: 09/02/18 12:01 Dose: 1 mg Morphine Sulfate (Morphine) 10 mg SLOW IVP Q1H PRN PRN Reason: Pain Last Admin: 09/02/18 12:18 Dose: 10 mg Scopolamine (Transderm Scop) 1.5 mg TOP Q3D ARLENE Last Admin: 09/02/18 12:10 Dose: 1.5 mg Sodium Chloride (Flush - Normal Saline) 10 ml IVF Q12HR ARLENE Last Admin: 09/02/18 12:13 Dose: 10 ml Sodium Chloride (Flush - Normal Saline) 10 ml IVF PRN PRN PRN Reason: Saline Flush Last Admin: 09/02/18 12:08 Dose: 10 ml
[2018-09-02] MEDS: Acetaminophen 1,000 MG in Premix Bag 1 BAG IVPB PRN (15:05)
== END 2018-09-02 18:36 | disposition home or self-care (01) | DRG 207 ==
LOC: ERS 21:31 → CCU 23:13 → ONC 09-01 19:25
PROVIDERS: ADMIT Hospitalist; ATTEND Hospitalist
PROC: 5A1955Z Respiratory Ventilation, Greater than 96 Consecutive Hours (ICD-10-PCS; principal; 2018-08-18)
PROC: 05H633Z Insertion of Infusion Device into Left Subclavian Vein, Percutaneous Approach (ICD-10-PCS; 2018-08-18)
DX: J96.01 Acute respiratory failure with hypoxia (principal); G93.41 Metabolic encephalopathy; R40.20 Unspecified coma; C78.00 Secondary malignant neoplasm of unspecified lung; C79.51 Secondary malignant neoplasm of bone; G40.801 Other epilepsy, not intractable, with status epilepticus; N39.0 Urinary tract infection, site not specified; N17.9 Acute kidney failure, unspecified; G93.1 Anoxic brain damage, not elsewhere classified; J90 Pleural effusion, not elsewhere classified; J95.851 Ventilator associated pneumonia; C50.912 Malignant neoplasm of unspecified site of left female breast; Z72.0 Tobacco use; E87.6 Hypokalemia; E83.52 Hypercalcemia; Z66 Do not resuscitate; Z51.5 Encounter for palliative care; R00.0 Tachycardia, unspecified; E78.00 Pure hypercholesterolemia, unspecified; R59.1 Generalized enlarged lymph nodes; E87.8 Other disorders of electrolyte and fluid balance, not elsewhere classified; Y95 Nosocomial condition
CPT/HCPCS: 36415; 36416; 36556; 51702; 70450; 70553; 71045; 71275; 72125; 80048; 80053; 80202; 81003; 81015; 82553; 82805; 83605; 83735; 83880; 83970; 84100; 84484; 85007; 85025; 85027; 85379; 85610; 85730; 87040; 87086; 87149; 93005; 94002; 94003; 94640; 95816; 95819; 96361; 96365; 96366; 96368; 96375; 96376; A9579; J0131; J0360; J0461; J0692; J0696; J1642; J1644; J1650; J1940; J1953; J2060; J2250; J2270; J2405; J2430; J2704; J2765; J3010; J3370; J3475; J3480; J3489; J7042; J7050; J7620; S0028

== ENCOUNTER 2018-09-02 18:37 | Inpatient (IN) | payer OTHER ==
[2018-09-02] MEDS ORDERED: Acetaminophen 650 MG Suppository PR PRN (19:19)
[2018-09-02] MEDS ORDERED: Scopolamine 1.5 mg/72 hour Patch TOP SCH (20:00)
[2018-09-02] MEDS: Morphine 4 MG/ML VIAL SLOW IVP PRN (21:45)
[2018-09-02] MEDS: Lorazepam 2 MG/ML VIAL SLOW IVP PRN (21:56)
[2018-09-03] MEDS: Morphine 4 MG/ML VIAL SLOW IVP PRN ×3 (00:12→10:06)
[2018-09-03] MEDS: Lorazepam 2 MG/ML VIAL SLOW IVP PRN ×2 (00:17→02:51)
[2018-09-03 00:45] VITALS: BMI 36.0
[2018-09-03 08:36] VITALS: BP 86/49; TEMP 104.4
--- NOTE | 2018-09-03 15:26 | DS ---
DATE OF : 09/03/2018 around 11:10. HOSPITAL COURSE: Patient is a very pleasant 63-year-old female who initially came into the hospital for hypercalcemia and shortness of breath. She underwent several diagnostic tests which indicated th at she had a breast cancer with significant metastatic lesions. Patient then was transitioned to [facility] pice care and this morning I did see the patient and also the family member that was next to the jozef ent. I have answered all the questions. However, the nurse called me later on today and stated that patient had passed comfortably. PHYSICAL EXAMINATION: VITAL SIGNS: At that time, she did have a spike a temperature of 100.4, heart rate is 139, respirati ons with 30-81, 86/49. GENERAL APPEARANCE: She appeared in mild distress. At this time, I did tell the nurse to give the p atient a little bit of morphine. HEART: The patient's heart is tachycardic, regular rate. ABDOMEN: Significantly distended. Bowel sounds are present. EXTREMITIES: She has significant anasarca edema all over. NEUROLOGIC: Patient was not awake and no response. Condolences to the family. DISCHARGE DIAGNOSES: As of the followin. Metastatic breast cancer. 2. Hypercalcemia. 3. Acute metabolic encephalopathy. 4. Status epilepticus and anoxic brain injury 5. Respiratory failure.
== END 2018-09-03 11:20 | disposition expired | DRG 951 ==
LOC: ONC 18:37
PROVIDERS: ADMIT Internal Medicine; ATTEND Internal Medicine
DX: Z51.5 Encounter for palliative care (principal); G93.41 Metabolic encephalopathy; J96.90 Respiratory failure, unspecified, unspecified whether with hypoxia or hypercapnia; G93.1 Anoxic brain damage, not elsewhere classified; C79.51 Secondary malignant neoplasm of bone; C79.89 Secondary malignant neoplasm of other specified sites; C50.919 Malignant neoplasm of unspecified site of unspecified female breast; E83.52 Hypercalcemia; G40.901 Epilepsy, unspecified, not intractable, with status epilepticus; Z88.0 Allergy status to penicillin; Z88.2 Allergy status to sulfonamides
CPT/HCPCS: J2060; J2270